=== PATIENT | male | born 1940 | race Caucasian/White ===

== ENCOUNTER → 2017-10-07 11:07 | Outpatient (CLI) | payer MEDICARE, BC, SELFPAY | PROVIDERS: Family Provider Family Medicine; PCP Family Medicine; Visit Provider Urology | DX: C61 Malignant neoplasm of prostate (principal) | CPT/HCPCS: 36415; 84153 ==

== ENCOUNTER → 2018-03-26 11:16 | Outpatient (CLI) | payer MEDICARE, BC, SELFPAY | PROVIDERS: Family Provider Family Medicine; PCP Family Medicine; Visit Provider Family Medicine | DX: R97.20 Elevated prostate specific antigen [PSA] (principal) | CPT/HCPCS: 36415; 84153 ==

== ENCOUNTER → 2019-06-08 16:33 | Outpatient (CLI) | payer MEDICARE, BC, SELFPAY ==
[2019-06-08 17:59] LABS: Absolute Lymphocyte Count 0.92 X10^3/uL (0.83-4.51); Absolute Neutrophil Count 5.1 X10^3/uL (2.0-7.7); Basophil# 0.02 X10^3/uL; Basophil% 0.3 % (0-1); Eosinophil# 0.23 X10^3/uL; Eosinophils% 3.4 % (0-5); Hematocrit 43.6 % (40-54); Hemoglobin 13.4 g/dL (13.0-16.5); Lymphocyte # 0.92 X10^3/ul (4.0); Lymphocyte % 13.4 % (19-41); Mean Corp Hgb Conc 30.7 g/dL (32-36); Monocyte# 0.54 X10^3/uL; Monocyte% 7.9 % (0-10); NRBC Flagged by Analyzer 0 % (0-5); Neutrophil # 5.14 X10^3/uL (2.7-7.7); Neutrophil % 74.9 % (47-70); Platelet Count 251 K/mm3 (150-450); RBC Distribution Width CV 12.7 % (11.6-14.6); RBC Distribution Width SD 42.4 fl (35.1-43.9); Red Blood Count 4.79 M/mm3 (4.6-6.2); White Blood Count 6.9 K/mm3 (4.4-11.0)
[2019-06-08 18:31] LABS: AST(SGOT) 19 U/L (15-37); Alanine Aminotransfer ALT/SGPT 19 U/L (16-61); Albumin, Serum 3.7 g/dL (3.2-5.0); Alkaline Phosphatase 66 U/L (45-117); Anion Gap 6 (5-15); BUN 23 mg/dL (7-18); BUN/Creat Ratio 18.5 RATIO (10-20); Calcium,Total 8.7 mg/dL (8.5-10.1); Chloride 107 mmol/L (98-107); Creatinine, Serum 1.24 mg/dL (0.70-1.30); EST Glomerular Filtration Rate 60 mL/min (>60); Est Glom Filt Rate - Afr Amer 73 mL/min (>60); Globulin 3.7 g/dL (2.2-4.2); Glucose 86 mg/dL (74-106); Potassium 4.3 mmol/L (3.5-5.1); Protein, Total 7.4 g/dL (6.4-8.2); Sodium Level 140 mmol/L (136-145); Thyroid Stim Hormone (TSH) 1.94 uIU/mL (0.358-3.74)
[2019-06-09 14:45] LABS: Vitamin B12 360 pg/mL (211-911)
== END ==
PROVIDERS: Family Provider Family Medicine; PCP Family Medicine; Referring Provider Family Medicine; Visit Provider Family Medicine
DX: G31.84 Mild cognitive impairment of uncertain or unknown etiology (principal)
CPT/HCPCS: 36415; 80053; 82607; 82746; 84443; 85025

== ENCOUNTER 2019-07-14 21:05 | Inpatient (IN) | payer MEDICARE, BC, SELFPAY ==
[2019-07-14] VITALS (10 sets, daily range): BP systolic 136–148; BP diastolic 86–93; PULSE 90–105; RESP 15–26; TEMP 36.7–36.9; O2SAT 97–99; BMI 22.0; BMI 24.0; BMI 20.7; BMI 20.8
--- NOTE | 2019-07-14 21:06 | EKG12_ITS ---
Test Reason : NEURO Blood Pressure : / mmHG Vent. Rate : 097 BPM Atrial Rate : 097 BPM P-R Int : 176 ms QRS Dur : 104 ms QT Int : 348 ms P-R-T Axes : 055 -31 040 degrees QTc Int : 441 ms Normal sinus rhythm Left axis deviation Incomplete right bundle branch block Abnormal ECG Confirmed by LEVI PRATER ([id number]), video tape editor MARIE BILLINGSLEY ([id number]) on 07/16/2019 10:48:09 AM Referred By: ARTURO Confirmed By:LEVI PRATER
--- NOTE | 2019-07-14 21:06 | CT_ITS ---
STUDY: CT BRAIN WITHOUT CONTRAST REASON FOR EXAM: Male, 79 years old. Vision loss. Stroke alert. RADIATION DOSAGE (If Supplied By Facility): CTDIvol = ( 44.99 ) mGy, DLP = ( 829.85 ) mGycm TECHNIQUE: Transaxial CT imaging of the brain was performed without administration of intravenous contrast material. Individualized dose optimization techniques were used for this CT. COMPARISON: None. FINDINGS: There is no acute bleed or infarct. There are chronic ischemic and atrophic changes. The ventricles are normal in configuration. There is no hydrocephalus. There is mild mucosal hypertrophy in the maxillary and ethmoid sinuses. The visualized paranasal sinuses are otherwise clear. The mastoid air cells are well aerated. There is no skull fracture. CT/Brain/Head without Contrast IMPRESSION: No acute intracranial abnormality. Chronic ischemic and atrophic changes. Mild sinusitis. N.B. : The above information has been verbally conveyed by Robert Marino to MD Anthony, on 07/14/2019 21:28:19 (ET). Electronically Signed: Robert Marino, at 21:21 EST Tel , Service support ,
--- NOTE | 2019-07-14 21:07 | CT_ITS ---
STUDY: CTA HEAD AND NECK WITH CONTRAST REASON FOR EXAM: Male, 79 years old. RT SIDED DEFICITS,VISION LOSS -- HX:HTN RADIATION DOSAGE (If Supplied By Facility): CTDIvol = ( 21.92 ) mGy, DLP = ( 731.40 ) mGycm TECHNIQUE: CT angiography was performed with a multi-detector CT scanner. Data acquisition was obtained from the skull base through the vertex following intravenous administration of IV 100mL [id number]-370. MIP images were reconstructed from the axial data set. Post-processing of the angiographic images was performed, with multiplanar reformation and 3D reconstruction. Individualized dose optimization techniques were used for this CT. COMPARISON: No relevant priors. FINDINGS: Normal bilateral petrous carotid arteries. Normal right cavernous carotid artery with a normal supraclinoid bifurcation. Normal left cavernous carotid artery with a normal supraclinoid bifurcation. Normal right A1 segments of the anterior cerebral artery. Normal left A1 segments of the anterior cerebral artery. Normal intact anterior communicating artery (ACOM). Normal bilateral A2 segments of the anterior cerebral arteries. Normal right M1 and M2 segments of the middle cerebral arteries, with a normal M1 bifurcation. Normal left M1 and M2 segments of the middle cerebral arteries, with a normal M1 bifurcation. Normal right posterior communicating artery (PCOM). Normal left posterior communicating artery (PCOM). Normal bilateral vertebral arteries. Normal basilar artery with a normal basilar bifurcation. The visualized bilateral superior cerebellar (SCA) arteries are normal. Normal bilateral P1, P2 and visualized P3 segments of the posterior cerebral arteries. There is no demonstrated aneurysm of the [place]. There is no demonstrated abnormality of the visualized brain. AORTIC ARCH: Normal visualized aortic arch. Normal origins of the brachiocephalic, left common carotid, and left subclavian arteries. RIGHT CAROTID ARTERIES: Normal right common carotid artery (CCA). There is mild atherosclerotic plaque formation with minimal narrowing of the right carotid bulb. Normal origin of the right internal carotid (ICA) artery without a hemodynamically significant stenosis. Normal visualized cervical portion of the right internal carotid artery. Normal origin of the right external carotid artery (ECA). LEFT CAROTID ARTERIES: Normal left common carotid artery (CCA). There is mild atherosclerotic plaque formation with minimal narrowing of the left carotid bulb. Normal origin of the left internal carotid (ICA) artery without a hemodynamically significant stenosis. Normal visualized cervical portion of the left internal carotid artery. Normal origin of the left external carotid artery (ECA). VERTEBRAL ARTERIES: Normal bilateral vertebral arteries. CT/CTA Head AND Neck W/ Contrast IMPRESSION: Normal CTA Head and neck with contrast. Electronically Signed: Robert Marino, at 21:50 EST Tel , Service support ,
--- NOTE | 2019-07-14 21:13 | ED.RN ---
FACE SHEET FAXED TO [facility]
--- NOTE | 2019-07-14 21:16 | ED.RN ---
NO OLD EKGS IN MUSE
[2019-07-14 21:34] LABS: Absolute Lymphocyte Count 0.91 X10^3/uL (0.83-4.51); Absolute Neutrophil Count 5.5 X10^3/uL (2.0-7.7); Basophil# 0.03 X10^3/uL; Basophil% 0.4 % (0-1); Eosinophil# 0.27 X10^3/uL; Eosinophils% 3.7 % (0-5); Hematocrit 37.8 % (40-54); Lymphocyte # 0.91 X10^3/ul (4.0); Lymphocyte % 12.4 % (19-41); Mean Corp Hgb Conc 31.7 g/dL (32-36); Mean Corpuscular Hgb 27.8 pg (27.0-32.0); Mean Corpuscular Volume 87.5 fL (80-94); Mean Platelet Vol. 10.7 fl (6.2-12.0); Monocyte# 0.61 X10^3/uL; Monocyte% 8.3 % (0-10); NRBC Flagged by Analyzer 0 % (0-5); Neutrophil % 75.1 % (47-70); Platelet Count 212 K/mm3 (150-450); RBC Distribution Width CV 13.1 % (11.6-14.6); RBC Distribution Width SD 42.1 fl (35.1-43.9); Red Blood Count 4.32 M/mm3 (4.6-6.2); White Blood Count 7.3 K/mm3 (4.4-11.0)
[2019-07-14 21:56] LABS: Anion Gap 1 (5-15); BUN 19 mg/dL (7-18); Calcium,Total 8.3 mg/dL (8.5-10.1); Chloride 106 mmol/L (98-107); Creatinine, Serum 1.27 mg/dL (0.70-1.30); EST Glomerular Filtration Rate 58 mL/min (>60); Est Glom Filt Rate - Afr Amer 71 mL/min (>60); Estimated Creatinine Clearance 50.78 ml/min; Glucose 102 mg/dL (74-106); Potassium 4.9 mmol/L (3.5-5.1); Sodium Level 135 mmol/L (136-145)
--- NOTE | 2019-07-14 22:01 | ED.DCSUM_ITS ---
History of Present Illness Chief Complaint: Neuro S/Sx Informant: Patient, Family, Operations And Maintenance Technician Onset: Today - Onset 2039 Context: Sudden Onset Timing: Continuous Quality and Location: Right Arm Parasthesia, Right Leg Parasthesia, Right Arm Weakness, Right Leg Weakness Onset: 2039 Current Severity: Moderate Maximum Severity: Moderate Worsened by: Nothing Relieved by: Nothing Associated Symptoms: Negative for: Headache, Nausea, Vomiting Narrative: Is an elderly male who was bowpablo. Son received a call from elsa ruiz that his father was not acting appropriately not able to use his right side. There is no prior history of stroke. He denies headache. Denies visual disturbance. Prior similar symptoms: No Recent Illness/Hospitalization: No - Past Medical History (1) History of BPH Status: Acute (2) History of hypertension Status: Acute Past Medical History - Allergies and Home Meds Allergies/Adverse Reactions: Allergies No Known Allergies Allergy (Verified 12/19/13 16:39) Primary Care Physician: Memo Richards MD [Primary Care Provider] - Prior records reviewed: Yes Surgical History: noncontributory Lives: - - Unknown Smoking Status: Former smoker Alcohol: None Drugs: None Review of Systems ROS: Unable to Obtain - Initial history is limited since patient examined in the hallway. He had difficulty finding words. He also had significant weakness on the right side. General: Denies: Fever, Malaise Eyes: Denies: Visual changes - bilaterally, Blurred Vision - bilaterally, Diplopia ENT: Reports: - - He denies ringing in his ears or decreased hearing. Denies: Rhinorrhea, Sore throat Cardiovascular: Denies: Chest pain, Palpitations Respiratory: Denies: Dyspnea, Cough, Dyspnea on exertion Gastrointestinal: Denies: Abdominal pain, Nausea, Vomiting Musculoskeletal: Denies: Myalgias, Arthralgias, Neck pain, Back pain, Swelling, Extremity Pain Skin: Denies: Rash, Wounds Neurological: Reports: Weakness, Parasthesia, Numbness. Denies: Headache Endocrine: Denies: Polyuria, Polydipsia Hematologic: Denies: Easy bruising, Easy bleeding STROKE Vital Signs/Narrative: Vital Signs Temp Pulse Resp BP Pulse Ox 07/14/19 21:54 102 H 23 H 144/93 H 98 07/14/19 21:50 98.4 F 100 16 144/93 H 98 07/14/19 21:38 100 15 145/93 H 99 07/14/19 21:29 101 H 17 145/93 H 98 07/14/19 21:27 99 Inital Vital Signs reviewed: Yes - NIHSS Initial 1a Level of Consciousness: 1 1b LOC Questions (Score 2 if aphasic/stupor): 1 1c LOC Commands (Only score 1st attempt): 0 2 Best Gaze (If aphasic, use reflexive mvmts.): 0 3 Visual: 0 4 Facial Palsy: 0 5 Motor Arm Right (UN = amputation/fusion): 2 5 Motor Arm Left: 0 6 Motor Leg Right: 2 7 Limb ataxia (Only + if out of proportion): 0 8 Sensory (Aphasia/stupor=0 or 1, coma=2): 1 9 Best Language: 1 10 Dysarthria (mute, coma=2, intubated=UN): 1 11 Extinction and Inattention (only scored if +): 1 Total Score: 10 2nd Follow up 1a Level of Consciousness: 0 1b LOC Questions (Score 2 if aphasic/stupor): 0 1c LOC Commands (Only score 1st attempt): 0 2 Best Gaze (If aphasic, use reflexive mvmts.): 0 3 Visual: 0 4 Facial Palsy: 0 5 Motor Arm Right (UN = amputation/fusion): 0 5 Motor Arm Left: 0 6 Motor Leg Right: 0 6 Motor Leg Left: 0 7 Limb ataxia (Only + if out of proportion): 0 8 Sensory (Aphasia/stupor=0 or 1, coma=2): 1 9 Best Language: 1 10 Dysarthria (mute, coma=2, intubated=UN): 1 11 Extinction and Inattention (only scored if +): 0 Total Score: 3 Diagnostic/Tx/Re-eval Impressions Head/Neck CTA 07/14/19 21:07 IMPRESSION: Normal CTA Head and neck with contrast. Electronically Signed: Robert Marino, at 21:50 EST Tel , Service support , 07/14/19 21:06 Brain/Head without Contrast [CT] Stat 07/14/19 21:07 CTA Head AND Neck W/ Contrast [CT] Stat Laboratory Results 07/14/19 07/14/19 07/14/19 21:25 21:25 21:25 WBC 7.3 RBC 4.32 L Hgb 12.0 L Hct 37.8 L MCV 87.5 MCH 27.8 MCHC 31.7 L RDW Std Deviation 42.1 RDW Coeff of Kirsten 13.1 Plt Count 212 MPV 10.7 Immature Gran % (Auto) 0.100 Neut % (Auto) 75.1 H Lymph % (Auto) 12.4 L [place] % (Auto) 8.3 Eos % (Auto) 3.7 Baso % (Auto) 0.4 Absolute Neuts (auto) 5.5 Absolute Lymphs (auto) 0.91 Nucleated RBC % 0 PT Cancelled INR Cancelled APTT Cancelled Sodium 135 L Potassium 4.9 Chloride 106 Carbon Dioxide 28.0 Anion Gap 1 L BUN 19 H Creatinine 1.27 Estim Creat Clear Calc 50.78 Est GFR (MDRD) Af Amer 71 Est GFR (MDRD) Non-Af 58 L BUN/Creatinine Ratio 15.0 Glucose 102 Calcium 8.3 L Troponin I < 0.015 Laboratory results are unremarkable. - EKG Initial EKG Interpretation: Sinus Rhythm - Sinus rhythm with a ventricular rate of 97. PA interval is 176 ms. QRS duration 104 ms. QT duration 348 ms. [place] to the left. There is an RR prime noted in V1 and suggestive of an incomplete right bundle branch block. - Medical Decision Making Stroke Team Activated: Yes Reviewed Inclusion/Exclusion criteria: Yes Was Patient considered for Endovascular Intervention?: No IV Alteplase (t-PA) Administered: No No contraindications for IV Alteplase (t-PA) administration.: No - No contraindication other than rapid improvement in low score Alteplase (t-PA) risks, benefits, alternative discussed: No Based on initial examination concern patient had acute stroke. He was taken immediately to the radiology suite for CT of the head without contrast and CTA of the head and neck. I was informed there is chronic changes with no evidence of acute stroke or thrombus/embolus. The stroke neurologist was spoken to briefly because of other high acuity patients. She had a NIH of 0. When I repeated my NAH at 2205 he is score is not 0. Nurse was instructed to continue performing NIH per protocol. Will discuss case with hospitalist. Recommendation by stroke neurologist from [facility] was MRI and states he is a TIA. Since patient has symptoms are still present he will be admitted as a stroke. ED Disposition - Plan for ED Patient: Disposition: Acute Care [facility] Diagnosis: Acute CVA (cerebrovascular accident), History of hypertension Referrals: Memo Richards MD [Primary Care Provider] -
[2019-07-14 22:37] LABS: International Normalized Ratio 1.1; Prothrombin Time (Protime)PT. 13.9 SECONDS (11.7-14.9)
[2019-07-14 22:38] LABS: Partial Thromboplast Time 29.2 Seconds (24.1-36.2)
[2019-07-15] VITALS (9 sets, daily range): BP systolic 129–159; BP diastolic 77–98; PULSE 76–94; RESP 16; TEMP 36.7–37; O2SAT 95–98; BMI 20.7
[2019-07-15] MEDS: 0.9% Normal Saline 1,000 ML 100 ML IV (00:17)
--- NOTE | 2019-07-15 03:57 | ECHOD_ITS ---
Reason For Study: NEAR SYNCOPE Procedure This was a 2D Doppler, Color Flow transthoracic echocardiogram. Exam performed in department. Left Ventricle Normal size and thickness. The estimated ejection fraction is 65 %. Stage 1 diastolic dysfunction. Right Ventricle Normal size and thickness. Normal systolic function. Atria Normal left atrium. Normal right atrium. Normal atrial septum. Mitral Valve The mitral valve is structurally normal. No prolapse or stenosis seen. Tricuspid Valve Normal tricuspid valve. Mild (1+) tricuspid valve insufficiency. Right ventricular systolic pressure estimated to be 24 mmHg. Aortic Valve Trisinus/trileaflet aortic valve. Severe diffuse aortic valve thickening. Moderate focal aortic valve thickening. Severe restriction of the aortic valve. Severe aortic stenosis. Peak aortic valve gradient 61 mmHg. Mean aortic valve gradient 39 mmHg. Calculated aortic valve area (continuity equation) is 0.78 cm2. Trivial aortic valve insufficiency. Pulmonic Valve Normal pulmonic valve. Great Vessels Normal aortic root. Normal arch. Normal inferior vena cava. Inferior vena cava collapse with sniff. Pericardium/Pleural No pericardial effusion. MMode/2D Measurements & Calculations LVIDd: 4.7 cm IVSd: 1.1 cm LVOT diam: 2.0 cm LVIDs: 3.1 cm LVPWd: 1.1 cm LVOT area: 3.1 cm2 RVDd: 3.1 cm FS: 35.5 % Ao root diam: 3.6 cm LAV(MOD-bp): 42.4 ml LA A4 area: 15.5 cm2 LAV(MOD-bp) Indexed: 22.3 ml/m2 LAV(MOD-sp2): 43.6 ml LAV(MOD-sp4): 40.9 ml LA dimension(2D): 3.3 cm RA A4 area: 11.0 cm2 Doppler Measurements & Calculations MV E max nilo: 53.2 cm/sec Lat Peak E' Nilo: 8.8 cm/sec Med Peak E' Nilo: 5.9 cm/sec MV A max nilo: 80.2 cm/sec E/E' lat: 6.1 E/E' med: 9.0 MV E/A: 0.66 Ao V2 max: 389.4 cm/sec AI max nilo: 413.9 cm/sec LV V1 max: 92.6 cm/sec Ao max P.0 mmHg AI max P.6 mmHg LV V1 max P.4 mmHg Ao V2 mean: 292.4 cm/sec AI dec slope: 196.4 cm/sec2 LV V1 mean P.0 mmHg Ao mean P.8 mmHg AI P1/2t: 617.3 msec LV V1 mean: 68.5 cm/sec Ao V2 VTI: 83.5 cm LV V1 VTI: 20.9 cm WILLIAM(I,D): 0.78 cm2 WILLIAM(V,D): 0.74 cm2 SV(LVOT): 65.1 ml Interpretation Summary The estimated ejection fraction is 65 %. Stage 1 diastolic dysfunction. Mild (1+) tricuspid valve insufficiency. Right ventricular systolic pressure estimated to be 24 mmHg. Severe restriction of the aortic valve. Probable fixed and mobile right coronary cusp. Severe to critical aortic stenosis. Peak aortic valve gradient 61 mmHg. Mean aortic valve gradient 39 mmHg. Calculated aortic valve area (continuity equation) is 0.78 cm2. Trivial aortic valve insufficiency. There is no comparison study available. Ordering Physician: Corrie Banerjee Referring Physician: Memo Richards Performed By: Joellen Mcelroy RDCS, RVT
--- NOTE | 2019-07-15 03:57 | MRI_ITS ---
STUDY: MRI BRAIN WITHOUT CONTRAST REASON FOR EXAM: Male, 79 years old. tia/cva, rt sided weakness, word difficulty TECHNIQUE: Standardized multiplanar fat and water weighted pulse sequences were obtained. COMPARISON: None. FINDINGS: There is moderate cerebral atrophy with widening of the extra-axial spaces and ventricular dilatation. There are a limited number of small white matter hyperintensities, distributed throughout the deep white matter tracts of the cerebral hemispheres, consistent with mild chronic white matter ischemic changes. There is no evidence for recent intracranial ischemia or other cause of cytotoxic edema on diffusion weighted imaging (DWI). Normal T2* images of the brain without demonstrated susceptibility artifact. There is no demonstrated hemosiderin stain. Normal bilateral basal ganglia. Normal thalami. There is no extra-axial fluid accumulation. Normal flow voids within the major intracranial circulation suggesting patency by spin echo criteria. Normal sella turcica, pituitary gland, infundibular stalk, optic chiasm and hypothalamus. Normal tectal plate and pineal gland. Normal midbrain, johan and medulla. Normal cerebellum. Normal basal cisterns. Normal bilateral temporal bones. Normal bilateral internal auditory canals. No demonstrated orbital abnormality, within the constraints of a routine brain study. Mild bilateral chronic maxillary sinus mucosal thickening. There is moderate bilateral ethmoid air cells opacification. Normal calvarium and skull base. Normal visualized soft tissue structures. Normal visualized upper cervical spine. MRI/Brain without Contrast IMPRESSION: Involutional changes of the brain, as described above. Mild bilateral chronic maxillary sinus mucosal thickening. There is moderate bilateral ethmoid air cells opacification. Electronically Signed: Edithchristy Ortiz, at 14:39 EST Tel , Service support ,
--- NOTE | 2019-07-15 03:57 | PCM.HP.STD ---
Problem List (1) History of BPH Status: Chronic (2) History of hypertension Status: Chronic History of Present Illness Date of Admission: 07/14/19 Chief Complaint: Right sided weakness The patient is a 79 year old M with past medical history of hypertension, BPH who comes in with right-sided weakness. Patient had gone bowling and reportedly felt very weak, looks like he was going to fall on his right side. He admits to feeling very dizzy feeling like he was going to pass out but he did not pass out. Denied diarrhea or chest pain or palpitations prior to this. The EMS was called and per report, patient could not speak, was agitated, looked confused, was very unstable on his feet, and had right-sided weakness. Blood glucose was 98. His vitals in the ED showed temperature of 98.4F, heart rate 100, blood pressure 144/93, respiratory rate was 16, SPO2 was 98% on room air. Written blood work showed a BC count 7.3, hemoglobin 12.2, platelet count of 212, INR 1.1, sodium 135, potassium 4.9, chloride 106, bicarbonate 28, BUN 19, creatinine 1.27, troponins was 0.015. Tele-stroke was consulted from the ED. Impressions was TIA Past Medical History Past Medical History (Chronic Problems): Chronic Problems History of BPH (Chronic) History of hypertension (Chronic) Allergies No Known Allergies Allergy (Verified 12/19/13 16:39) Home Medications: Ambulatory Orders Medication Instructions Recorded Ramipril [Altace] 10 mg PO DAILY 12/19/13 Tamsulosin HCl [Flomax] 0.4 mg PO DAILY 12/19/13 Surgical History: noncontributory Psychiatric History: No pertinent psych hx Lives: With Family, - - Unknown Smoking Status: Former smoker Tobacco Use: Cigarettes Alcohol: None Drugs: None Review of Systems Constitutional: Reports: Weakness. Denies: Anorexia, Chills, Fever, Malaise, Weight Change, Fatigue Eyes: Denies: Blurred vision, Cataracts, Conjunctivae Inflammation, Pain, Redness, Vision Change HEENT: Denies: Difficulty Hearing, Difficulty Swallowing, Head Aches, Hearing Changes, Nasal bleeding, Sinus Congestion, Sinus Drainage Cardiovascular: Denies: Chest Pain, Claudication, Orthopnea, Palpitations, Paroxysmal Noc. Dyspnea Respiratory: Denies: Cough, Hemoptysis, Shortness of breath at rest, Shortness of breath upon exertion, Sputum production Gastrointestinal: Denies: Abdominal Pain, Constipation, Hematemesis, Nausea, Vomiting Genitourinary: Denies: Dysuria Musculoskeletal: Denies: Joint Pain, Joint stiffness, Joint swelling, Joint Tenderness Skin: Denies: Rash, Wounds Neurological: Reports: Balance problems, Focal weakness, Incoordination. Denies: Numbness, Tingling Psychiatric: Denies: Anxiety, Depression, Homicidal Ideations, Suicidal Ideations Hematologic/ Lymphatic: Denies: Easy Bruising, Easy Bleeding VTE Information - Inpt Only VTE Present on Admission: No VTE Pharm Prophylaxis ordered?: Yes Patient Problems: Active and Suspected Problems Acute CVA (cerebrovascular accident) (Acute) - Physical Exam Vitals/I&O's: Vital Signs Temp Pulse Resp BP Pulse Ox 98.1 F 90 18 143/86 H 98 07/14/19 23:45 07/14/19 23:55 07/14/19 23:45 07/14/19 23:45 07/14/19 23:45 Oxygen Flow Rate (L/min) 2 Oxygen Delivery Method Room Air Weight: 69.5 kg Body Mass Index (BMI) 20.7 Finger Stick Blood Glucose 98 Intake and Output for Last 24 Hours 07/13/19 07/14/19 07/15/19 23:59 23:59 23:59 Intake Total 0 / 0 Output Total 0 / 0 Balance 0 / 0 General: Alert, Oriented x3, Cooperative, No apparent distress HEENT: Atraumatic, PERRLA, EOMI, Normocephalic Oral: Moist Mucosa Neck: Supple, No JVD, Negative Carotid Bruits Lungs: Clear to auscultation, Normal air movement Cardiovascular: Regular rate, Regular Rhythm, Normal S1, Normal S2, No murmurs Abdomen: Bowel Sounds Present, Soft, Non Tender, Non-Distended, No Hepato-splenomegaly Extremities: No edema Skin: No rashes, No breakdown Musculoskeletal: No Tenderness to Palpation of Joints or Extremities Lymphatic: No Cervical, Supraclavicular, or Inguinal Adenopathy Neurological: Cranial nerves II-XII grossly intact, Neuro grossly intact Psych/Mental Status: Normal Affect, Appropriate Laboratory Results 07/14/19 21:25: WBC 7.3, RBC 4.32 L, Hgb 12.0 L, Hct 37.8 L, MCV 87.5, MCH 27.8, MCHC 31.7 L, RDW Std Deviation 42.1, RDW Coeff of Kirsten 13.1, Plt Count 212, MPV 10.7, Immature Gran % (Auto) 0.100, Neut % (Auto) 75.1 H, Lymph % (Auto) 12.4 L, [place] % (Auto) 8.3, Eos % (Auto) 3.7, Baso % (Auto) 0.4, Absolute Neuts (auto) 5.5, Absolute Lymphs (auto) 0.91, Nucleated RBC % 0 07/14/19 21:25: PT Cancelled, INR Cancelled, APTT Cancelled 07/14/19 21:25: Sodium 135 L, Potassium 4.9, Chloride 106, Carbon Dioxide 28.0, Anion Gap 1 L, BUN 19 H, Creatinine 1.27, Estim Creat Clear Calc 50.78, Est GFR (MDRD) Af Amer 71, Est GFR (MDRD) Non-Af 58 L, BUN/Creatinine Ratio 15.0, Glucose 102, Calcium 8.3 L, Troponin I < 0.015 07/14/19 22:24: PT 13.9, INR 1.1, APTT 29.2 Current Medications Acetaminophen (Tylenol) 650 mg PO Q6H PRN PRN PRN Reason: Pain Score 1-10/Temp > 100.7 F Heparin Sodium (Porcine) (Heparin Na) 5,000 unit SC Q8 [facility] Sodium Chloride () 1,000 mls @ 100 mls/hr IV .Q10H NILA Stop: 07/15/19 09:40 Last Admin: 07/15/19 00:17 Dose: 100 mls/hr Documented by: Nitroglycerin (Nitrostat) 0.4 mg SUBLINGUAL Q5M PRN PRN Reason: CARDIAC/CHEST PAIN Sodium Chloride () 10 - 40 ml IV UD PRN PRN Reason: SALINE FLUSH Assessment/Plan All Active Problems Acute CVA (cerebrovascular accident) (Acute) 79 year old M with past medical history of hypertension, BPH who comes in with right-sided weakness. 1. Acute TIA, patient presented with right-sided weakness which appeared to have resolved Tele-stroke consulted from ED Continue on aspirin, stroke work-up with MRI of the brain, MRA of the head and neck, 2D echo, HbA1c, lipid profile Atorvastatin 40 mg p.o. daily 2. Hypertension, controlled, would hold home ramipril to allow for permissive hypertension 3. BPH on Flomax 4. DVT PPx- Heparin SC Code Visit Inpatient E&M: 54107 Subs Hosp L2
[2019-07-15] MEDS: Heparin Injection (Vial) 5,000 UNIT/ML VIAL 5000 UNIT SC (05:14)
[2019-07-15] MEDS: Aspirin 81 MG TAB.CHEW PO ×2 (05:14→08:07)
[2019-07-15 06:05] LABS: Absolute Lymphocyte Count 0.69 X10^3/uL (0.83-4.51); Absolute Neutrophil Count 6.1 X10^3/uL (2.0-7.7); Basophil# 0.04 X10^3/uL; Basophil% 0.5 % (0-1); Eosinophil# 0.23 X10^3/uL; Hematocrit 39.1 % (40-54); Hemoglobin 12.1 g/dL (13.0-16.5); Lymphocyte # 0.69 X10^3/ul (4.0); Lymphocyte % 9.1 % (19-41); Mean Corp Hgb Conc 30.9 g/dL (32-36); Mean Corpuscular Hgb 27.1 pg (27.0-32.0); Mean Corpuscular Volume 87.5 fL (80-94); Mean Platelet Vol. 10.8 fl (6.2-12.0); Monocyte# 0.57 X10^3/uL; Monocyte% 7.5 % (0-10); NRBC Flagged by Analyzer 0 % (0-5); Neutrophil # 6.06 X10^3/uL (2.7-7.7); Neutrophil % 79.6 % (47-70); Platelet Count 217 K/mm3 (150-450); RBC Distribution Width SD 41.6 fl (35.1-43.9); Red Blood Count 4.47 M/mm3 (4.6-6.2); White Blood Count 7.6 K/mm3 (4.4-11.0)
[2019-07-15 06:28] LABS: AST(SGOT) 16 U/L (15-37); Alanine Aminotransfer ALT/SGPT 18 U/L (16-61); Albumin, Serum 3.2 g/dL (3.2-5.0); Alkaline Phosphatase 62 U/L (45-117); Anion Gap 3 (5-15); BUN 18 mg/dL (7-18); BUN/Creat Ratio 15.8 RATIO (10-20); Calcium,Total 8.6 mg/dL (8.5-10.1); Chloride 109 mmol/L (98-107); Cholesterol 195 mg/dL (200); Creatinine, Serum 1.14 mg/dL (0.70-1.30); EST Glomerular Filtration Rate 66 mL/min (>60); Est Glom Filt Rate - Afr Amer 80 mL/min (>60); Estimated Creatinine Clearance 53.34 ml/min; Globulin 3.3 g/dL (2.2-4.2); Glucose 102 mg/dL (74-106); High Density Lipoprotein 40 mg/dL; Potassium 4.4 mmol/L (3.5-5.1); Protein, Total 6.5 g/dL (6.4-8.2); Sodium Level 138 mmol/L (136-145); Triglycerides 99 mg/dL; Very Low Density Lipoprotein 20 mg/dL (5-40)
[2019-07-15] MEDS: 0.9% Saline Lock 10 ML Syringe IV (08:07)
--- NOTE | 2019-07-15 09:03 | PCA ---
pt off floor
--- NOTE | 2019-07-15 13:02 | CPS ---
patient refused incentive
--- NOTE | 2019-07-15 13:32 | CASEMGMT ---
JASE DENT assessment: Face to Face with patient for initial transition planning/care coordination assessment. JASE DENT introduced self and role at [facility], pt voices understanding and consents to assessment at this time. Pt is sitting up in bed in no distress at this time. Pt is A/Ox4 at this time and answers all questions appropriately at this time. Care providers, pharmacy, and demographics verified at this time. Presentation: Stroke-like sx's Admitting dx: Acute CVA PCP: Memo Richards Specialists: lisette Montiel Preferred Pharmacy: [facility] Insurance: [email or web address] A/B, [employer] Prescription Benefit: Yes Living Will/HPOA: Pt states has LW/HPOA and is aware that they are not on file at [facility] at this time. Pt states his daughter, Lauren Perry, is HPOA. Pt encouraged to bring in, when able, voices understanding. LNOK: Lauren Perry, daughter; Meir Howe, son Living Arrangements: Pt states lives alone in 2 story home and states no concerns at home at this time. Pt states is independent with ADL's. Transportation: Pt states drives self and states no transportation concerns at this time. DME/HHC: Pt states no current DME or need for any at this time. Pt states no hx of HHC or SNF in the past. Pt states no concerns with going home at time of discharge. 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 Pt states does not smoke or drink ETOH. Pt states no further concerns/needs at this time. CM to follow for any further discharge planning/needs. Advised pt to ask for CM if any further questions/concerns/needs arise, voices understanding. Pt Goal: Home Plan: Home [place] JASE DENT
--- NOTE | 2019-07-15 13:58 | CASEMGMT ---
SW did not complete a PHQ 9 with patient. Hospitalist and [facility] do not feel patient had a TIA or Stroke. They felt it was more vertigo vs dehydration. Ofelia [employer]
--- NOTE | 2019-07-15 14:49 | DCINST_ITS ---
- Discharge Diagnoses Current Active Problems: Current Active and Chronic Problems 1. TIA 2. Hypertension 3. BPH You will use the following diet at home:: Cardiac Discharge Activity: Return to Normal Activity Call your doctor if you observe: Shortness of breath, Dizziness, Fainting spells, Chest pain Allergies/Adverse Reactions: Allergies No Known Allergies Allergy (Verified 12/19/13 16:39) Medications to take at Discharge Ramipril [Altace] 10 mg PO DAILY 12/19/13 Tamsulosin HCl [Flomax] 0.4 mg PO DAILY 12/19/13 Aspirin [Aspirin, Baby] 81 mg PO DAILY@0800 #30 tab.chew 07/15/19 Atorvastatin Calcium [Lipitor] 40 mg PO QHS #30 tab 07/15/19 The following prescriptions were given: Aspirin [Aspirin, Baby] 81 mg PO DAILY@0800 #30 tab.chew Transmission Status: Pending to [facility] Atorvastatin Calcium [Lipitor] 40 mg PO QHS #30 tab Transmission Status: Pending to [facility] Primary Care Physician: Memo Richards MD [Primary Care Provider] - Please follow up with your Primary Care Physician in: 1 Week Test Results: Test results from this visit will be discussed in further detail at your follow- up appointment, if applicable. Please Follow Up With: Filippo Ayon MD When: 1-2 Weeks, may see [employer] Proposed Discharge Date: 07/15/19
--- NOTE | 2019-07-15 15:05 | PCM.DC.SUM ---
<Chantal Clayton - Last Filed: 07/15/19 15:12> Discharge Date and Diagnosis Date of Admission: 07/14/19 Date of Discharge: 07/15/19 - Primary Discharge Diagnosis Active and Suspected Problems 1. TIA 2. Hypertension 3. BPH - Secondary Discharge Diagnosis Chronic Problems History of BPH (Chronic) History of hypertension (Chronic) Hospital Course and Treatment Imaging Results: Diagnostic Data Brain CT 07/14/19 21:06 IMPRESSION: No acute intracranial abnormality. Chronic ischemic and atrophic changes. Mild sinusitis. N.B. : The above information has been verbally conveyed by Robert Marino to MD Anthony, on 07/14/2019 21:28:19 (ET). Electronically Signed: Robert Marino, at 21:21 EST Tel , Service support , ADDENDUM: 07/15/19 0944 IMPRESSION: No acute intracranial abnormality. Chronic ischemic and atrophic changes. Mild sinusitis. N.B. : The above information has been verbally conveyed by Robert Marino to MD Anthony, on 07/14/2019 21:28:19 (ET). Electronically Signed: Robert Marino, at 21:21 EST Tel , Service support , Head/Neck CTA 07/14/19 21:07 IMPRESSION: Normal CTA Head and neck with contrast. Electronically Signed: Robert Marino, at 21:50 EST Tel , Service support , Brain MRI 07/15/19 03:57 IMPRESSION: Involutional changes of the brain, as described above. Mild bilateral chronic maxillary sinus mucosal thickening. There is moderate bilateral ethmoid air cells opacification. Electronically Signed: Korina Ortiz, at 14:39 EST Tel , Service support , Teleneurology Operations: None Procedures: 2-D Echocardiogram Summary of Care Provided: The patient is a 79 year old M admitted 07/14/2019 due to right-sided weakness. 1. TIA- teleneuro consulted from ER with diagnosis of TIA. MRI of brain shows no acute process. Head and neck CTA unremarkable. Echocardiogram pending and will be reviewed prior to discharge. Continue aspirin, statin. Follow-up with neurology in 1 to 2 weeks. Follow-up with primary care provider in 1 week. 2. Hypertension-stable, continue ramipril regimen. 3. BPH-continue Flomax regimen. General: Alert, Oriented x3, Cooperative HEENT: Atraumatic, PERRLA, EOMI, Normocephalic Oral: Moist Mucosa Neck: Supple, No JVD, Negative Carotid Bruits Lungs: Clear to auscultation, Normal air movement Cardiovascular: Regular rate, Regular Rhythm, Normal S1, Normal S2, No murmurs Abdomen: Bowel Sounds Present, Soft, Non Tender, Non-Distended Extremities: No edema Skin: No rashes, No breakdown Musculoskeletal: No Tenderness to Palpation of Joints or Extremities Lymphatic: No Cervical, Supraclavicular, or Inguinal Adenopathy Neurological: Cranial nerves II-XII grossly intact, Neuro grossly intact Psych/Mental Status: Normal Affect, Appropriate Patient seen and examined prior to discharge. Physical assessment as noted above. Patient is stable for discharge with follow up recommendations as noted above. This patient was seen by TYRONE Saleh under the supervision of Dr. Cooney. - Physical Exam Vitals/I&O's: Vital Signs Temp Pulse Resp BP Pulse Ox 98.2 F 80 16 153/77 H 97 07/15/19 11:15 07/15/19 11:15 07/15/19 11:15 07/15/19 11:15 07/15/19 11:15 Oxygen Flow Rate (L/min) 2 Oxygen Delivery Method Room Air Weight: 153 lb 3.54 oz Body Mass Index (BMI) 20.7 Finger Stick Blood Glucose 98 Intake and Output for Last 24 Hours 07/13/19 07/14/19 07/15/19 23:59 23:59 23:59 Intake Total 0 / 0 1066.67 / 1066.67 Output Total 0 / 0 Balance 0 / 0 1066.67 / 1066.67 Laboratory Results 07/14/19 21:25: WBC 7.3, RBC 4.32 L, Hgb 12.0 L, Hct 37.8 L, MCV 87.5, MCH 27.8, MCHC 31.7 L, RDW Std Deviation 42.1, RDW Coeff of Kirsten 13.1, Plt Count 212, MPV 10.7, Immature Gran % (Auto) 0.100, Neut % (Auto) 75.1 H, Lymph % (Auto) 12.4 L, [place] % (Auto) 8.3, Eos % (Auto) 3.7, Baso % (Auto) 0.4, Absolute Neuts (auto) 5.5, Absolute Lymphs (auto) 0.91, Nucleated RBC % 0 07/14/19 21:25: PT Cancelled, INR Cancelled, APTT Cancelled 07/14/19 21:25: Sodium 135 L, Potassium 4.9, Chloride 106, Carbon Dioxide 28.0, Anion Gap 1 L, BUN 19 H, Creatinine 1.27, Estim Creat Clear Calc 50.78, Est GFR (MDRD) Af Amer 71, Est GFR (MDRD) Non-Af 58 L, BUN/Creatinine Ratio 15.0, Glucose 102, Calcium 8.3 L, Troponin I < 0.015 07/14/19 22:24: PT 13.9, INR 1.1, APTT 29.2 07/15/19 05:40: WBC 7.6, RBC 4.47 L, Hgb 12.1 L, Hct 39.1 L, MCV 87.5, MCH 27.1, MCHC 30.9 L, RDW Std Deviation 41.6, RDW Coeff of Kirsten 13.0, Plt Count 217, MPV 10.8, Immature Gran % (Auto) 0.300, Neut % (Auto) 79.6 H, Lymph % (Auto) 9.1 L, [place] % (Auto) 7.5, Eos % (Auto) 3.0, Baso % (Auto) 0.5, Absolute Neuts (auto) 6.1, Absolute Lymphs (auto) 0.69 L, Nucleated RBC % 0 07/15/19 05:40: Sodium 138, Potassium 4.4, Chloride 109 H, Carbon Dioxide 26.0, Anion Gap 3 L, BUN 18, Creatinine 1.14, Estim Creat Clear Calc 53.34, Est GFR (MDRD) Af Amer 80, Est GFR (MDRD) Non-Af 66, BUN/Creatinine Ratio 15.8, Glucose 102, Calcium 8.6, Total Bilirubin 0.50, AST 16, ALT 18, Alkaline Phosphatase 62, Total Protein 6.5, Albumin 3.2, Globulin 3.3, Albumin/Globulin Ratio 1.0, Triglycerides 99, Cholesterol 195, LDL Cholesterol 135 H, VLDL Cholesterol 20, HDL Cholesterol 40 07/15/19 05:40: Triglycerides Cancelled, Cholesterol Cancelled, LDL Cholesterol Cancelled, VLDL Cholesterol Cancelled, HDL Cholesterol Cancelled Current Medications Acetaminophen (Tylenol) 650 mg PO Q6H PRN PRN PRN Reason: Pain Score 1-10/Temp > 100.7 F Aspirin (Aspirin, Baby) 81 mg PO DAILY@0800 [facility] Last Admin: 07/15/19 08:07 Dose: 81 mg Documented by: Atorvastatin Calcium (Lipitor) 40 mg PO QHS [facility] Heparin Sodium (Porcine) (Heparin Na) 5,000 unit SC Q8 [facility] Last Admin: 07/15/19 05:14 Dose: 5,000 unit Documented by: Nitroglycerin (Nitrostat) 0.4 mg SUBLINGUAL Q5M PRN PRN Reason: CARDIAC/CHEST PAIN Sodium Chloride () 10 - 40 ml IV UD PRN PRN Reason: SALINE FLUSH Last Admin: 07/15/19 08:07 Dose: 10 ml Documented by: Discharge Diet: Low fat/ Low Cholesterol Discharge Activity: Return to Normal Activity Call your doctor if you observe: Shortness of breath, Dizziness, Fainting spells, Chest pain Home Medications: Medications to take at Discharge Ramipril [Altace] 10 mg PO DAILY 12/19/13 Tamsulosin HCl [Flomax] 0.4 mg PO DAILY 12/19/13 Aspirin [Aspirin, Baby] 81 mg PO DAILY@0800 #30 tab.chew 07/15/19 Atorvastatin Calcium [Lipitor] 40 mg PO QHS #30 tab 07/15/19 Finasteride 5 mg PO DAILY 07/15/19 Following Prescrptions Were Given to Patient: Aspirin [Aspirin, Baby] 81 mg PO DAILY@0800 #30 tab.chew Transmission Status: Received by [facility] Atorvastatin Calcium [Lipitor] 40 mg PO QHS #30 tab Transmission Status: Received by [facility] Primary Care Physician: Memo Richards MD [Primary Care Provider] - Please follow up with your Primary Care Physician in: 1 Week Please Follow Up With: Filippo Ayon MD When: 1-2 Weeks, may see [employer] Disposition: Home Minutes spent on discharge:: 35 Patient Condition:: Stable Medical Necessity - Tobacco Use Smoking Status: Former smoker Tobacco Use: Cigarettes Meaningful Use Info Meaningful Use Diagnoses (Choose all that apply): None applicable <Santos Cooney F - Last Filed: 07/16/19 08:51> Discharge Date and Diagnosis - Primary Discharge Diagnosis Active and Suspected Problems Aortic stenosis, severe (Acute) Pre-syncope (Acute) - Secondary Discharge Diagnosis Chronic Problems History of BPH (Chronic) History of hypertension (Chronic) Hospital Course and Treatment Summary of Care Provided: The patient is a 79 year old M [] - Physical Exam Vitals/I&O's: Vital Signs Temp Pulse Resp BP Pulse Ox 98.5 F 81 16 138/82 H 97 07/16/19 08:20 07/16/19 08:35 07/16/19 08:35 07/16/19 08:35 07/16/19 08:35 Oxygen Flow Rate (L/min) 2 Oxygen Delivery Method Room Air Weight: 153 lb 7.068 oz Body Mass Index (BMI) 20.7 Finger Stick Blood Glucose 98 Intake and Output for Last 24 Hours 07/14/19 07/15/19 07/16/19 23:59 23:59 23:59 Intake Total 0 / 0 1306.67 / 1306.67 25 Output Total 0 / 0 Balance 0 / 0 1306.67 / 1306.67 Current Medications Acetaminophen (Tylenol) 650 mg PO Q6H PRN PRN PRN Reason: Pain Score 1-10/Temp > 100.7 F Aspirin (Aspirin, Baby) 81 mg PO DAILY@0800 [facility] Last Admin: 07/16/19 06:01 Dose: 81 mg Documented by: Atorvastatin Calcium (Lipitor) 40 mg PO QHS [facility] Last Admin: 07/15/19 20:28 Dose: Not Given Documented by: Heparin Sodium (Beef Lung) (Heparin 500 Unit/5 Ml (100/Ml)) 500 unit IV UD PRN PRN Reason: HEPARIN FLUSH Sodium Chloride () 1,000 mls @ 0 mls/hr IV .Q0M [facility] Labetalol HCl (Trandate) 5 mg IV X1 PRN PRN Reason: SBP > 160 prior to sheath pull Sodium Chloride () 10 - 40 ml IV UD PRN PRN Reason: SALINE FLUSH Last Admin: 07/15/19 08:07 Dose: 10 ml Documented by: Disposition: Acute care Hospital Code Visit Addendum: Dr. Cooney I personally examined the patient and reviewed the chart. I agree with the above. 79-year-old male previously healthy presented after having an episode of vertigo and left-sided weakness while bowling. Initially he was thought to be a stroke and had a stroke work-up with an MRI which was normal. However he did have an echo that showed a critical aortic stenosis and therefore cardiology was consulted who proceeded with a cath this morning and on top of his aortic stenosis also had left main coronary artery disease with a 75% stenosis. He has normal left ventricular function and therefore was recommended transfer to the [facility] for cardiac intervention. In the meantime he was started on aspirin and Lipitor and continued on his ramipril. General: Alert, Oriented x3, Cooperative, No apparent distress HEENT: Atraumatic, PERRLA, EOMI, Normocephalic Oral: Moist Mucosa Neck: Supple, No JVD Lungs: Clear to auscultation, Normal air movement, No rhonchi, No wheeze, No rales Cardiovascular: Regular rate, Regular Rhythm, Normal S1, Normal S2, 2 out of 6 systolic ejection murmur left upper sternal border Abdomen: Soft, Non Tender, Non-Distended, No Hepato-splenomegaly Extremities: No edema, Capillary Refill Less than 3 Seconds Skin: No rashes, No breakdown Musculoskeletal: No Tenderness to Palpation of Joints or Extremities Neurological: Cranial nerves II-XII grossly intact, Motor Exam 5/5 strength throughout, Sensory exam intact to light touch and pain Psych/Mental Status: Normal Affect, Appropriate Inpatient E&M: 03070 Disch Hosp
--- NOTE | 2019-07-15 15:19 | PN_ITS ---
<Chantal Clayton - Last Filed: 07/15/19 15:23> Subjective: Discharge initially planned following work-up for TIA however echocardiogram resulted and demonstrated severe to critical aortic stenosis. Cardiology consult subsequently placed and plan for cath in a.m. - Physical Exam Vitals/I&O's: Vital Signs Temp Pulse Resp BP Pulse Ox 98.2 F 80 16 153/77 H 97 07/15/19 11:15 07/15/19 11:15 07/15/19 11:15 07/15/19 11:15 07/15/19 11:15 Oxygen Flow Rate (L/min) 2 Oxygen Delivery Method Room Air Weight: 153 lb 3.54 oz Body Mass Index (BMI) 20.7 Finger Stick Blood Glucose 98 Intake and Output for Last 24 Hours 07/13/19 07/14/19 07/15/19 23:59 23:59 23:59 Intake Total 0 / 0 1066.67 / 1066.67 Output Total 0 / 0 Balance 0 / 0 1066.67 / 1066.67 General: Alert, Oriented x3, Cooperative HEENT: Atraumatic, PERRLA, EOMI, Normocephalic Neck: Supple, No JVD, Negative Carotid Bruits Lungs: Clear to auscultation, Normal air movement Cardiovascular: Regular rate, Regular Rhythm, Normal S1, Normal S2, Murmur Abdomen: Bowel Sounds Present, Soft, Non Tender, Non-Distended Extremities: No clubbing, No cyanosis, No edema Skin: No rashes, No breakdown Musculoskeletal: No Tenderness to Palpation of Joints or Extremities Neurological: Cranial nerves II-XII grossly intact, Neuro grossly intact Psych/Mental Status: Normal Affect, Appropriate Laboratory Results 07/14/19 21:25: WBC 7.3, RBC 4.32 L, Hgb 12.0 L, Hct 37.8 L, MCV 87.5, MCH 27.8, MCHC 31.7 L, RDW Std Deviation 42.1, RDW Coeff of Kirsten 13.1, Plt Count 212, MPV 10.7, Immature Gran % (Auto) 0.100, Neut % (Auto) 75.1 H, Lymph % (Auto) 12.4 L, [place] % (Auto) 8.3, Eos % (Auto) 3.7, Baso % (Auto) 0.4, Absolute Neuts (auto) 5.5, Absolute Lymphs (auto) 0.91, Nucleated RBC % 0 07/14/19 21:25: PT Cancelled, INR Cancelled, APTT Cancelled 07/14/19 21:25: Sodium 135 L, Potassium 4.9, Chloride 106, Carbon Dioxide 28.0, Anion Gap 1 L, BUN 19 H, Creatinine 1.27, Estim Creat Clear Calc 50.78, Est GFR (MDRD) Af Amer 71, Est GFR (MDRD) Non-Af 58 L, BUN/Creatinine Ratio 15.0, Glucose 102, Calcium 8.3 L, Troponin I < 0.015 07/14/19 22:24: PT 13.9, INR 1.1, APTT 29.2 07/15/19 05:40: WBC 7.6, RBC 4.47 L, Hgb 12.1 L, Hct 39.1 L, MCV 87.5, MCH 27.1, MCHC 30.9 L, RDW Std Deviation 41.6, RDW Coeff of Kirsten 13.0, Plt Count 217, MPV 10.8, Immature Gran % (Auto) 0.300, Neut % (Auto) 79.6 H, Lymph % (Auto) 9.1 L, [place] % (Auto) 7.5, Eos % (Auto) 3.0, Baso % (Auto) 0.5, Absolute Neuts (auto) 6.1, Absolute Lymphs (auto) 0.69 L, Nucleated RBC % 0 07/15/19 05:40: Sodium 138, Potassium 4.4, Chloride 109 H, Carbon Dioxide 26.0, Anion Gap 3 L, BUN 18, Creatinine 1.14, Estim Creat Clear Calc 53.34, Est GFR (MDRD) Af Amer 80, Est GFR (MDRD) Non-Af 66, BUN/Creatinine Ratio 15.8, Glucose 102, Calcium 8.6, Total Bilirubin 0.50, AST 16, ALT 18, Alkaline Phosphatase 62, Total Protein 6.5, Albumin 3.2, Globulin 3.3, Albumin/Globulin Ratio 1.0, Triglycerides 99, Cholesterol 195, LDL Cholesterol 135 H, VLDL Cholesterol 20, HDL Cholesterol 40 07/15/19 05:40: Triglycerides Cancelled, Cholesterol Cancelled, LDL Cholesterol Cancelled, VLDL Cholesterol Cancelled, HDL Cholesterol Cancelled Current Medications Acetaminophen (Tylenol) 650 mg PO Q6H PRN PRN PRN Reason: Pain Score 1-10/Temp > 100.7 F Aspirin (Aspirin, Baby) 81 mg PO DAILY@0800 [facility] Last Admin: 07/15/19 08:07 Dose: 81 mg Documented by: Atorvastatin Calcium (Lipitor) 40 mg PO QHS [facility] Heparin Sodium (Porcine) (Heparin Na) 5,000 unit SC Q8 [facility] Last Admin: 07/15/19 05:14 Dose: 5,000 unit Documented by: Nitroglycerin (Nitrostat) 0.4 mg SUBLINGUAL Q5M PRN PRN Reason: CARDIAC/CHEST PAIN Sodium Chloride () 10 - 40 ml IV UD PRN PRN Reason: SALINE FLUSH Last Admin: 07/15/19 08:07 Dose: 10 ml Documented by: Medical Necessity - Tobacco Use Smoking Status: Former smoker Tobacco Use: Cigarettes Assessment/Plan All Active Problems Aortic stenosis, severe (Acute) Pre-syncope (Acute) Acute CVA (cerebrovascular accident) (Acute) 1. Critical aortic stenosis-echocardiogram demonstrated EF 65%, stage I diastolic dysfunction, severe to critical aortic stenosis. Cardiology consult placed. Plan for cath in a.m. 2. TIA-on aspirin, statin. MRI of brain and CTA of head and neck unremarkable. Echo per above. 3. Hypertension-stable, continue ramipril regimen. 4. BPH-continue Flomax regimen. DVT prophylaxis- heparin sc This patient was seen by TYRONE Saleh under the supervision of Dr. Cooney. <Santos Cooney F - Last Filed: 07/15/19 16:46> - Physical Exam Vitals/I&O's: Vital Signs Temp Pulse Resp BP Pulse Ox 98.2 F 94 16 153/77 H 97 07/15/19 11:15 07/15/19 14:54 07/15/19 11:15 07/15/19 11:15 07/15/19 11:15 Oxygen Flow Rate (L/min) 2 Oxygen Delivery Method Room Air Weight: 153 lb 3.54 oz Body Mass Index (BMI) 20.7 Finger Stick Blood Glucose 98 Intake and Output for Last 24 Hours 07/13/19 07/14/19 07/15/19 23:59 23:59 23:59 Intake Total 0 / 0 1066.67 / 1066.67 Output Total 0 / 0 Balance 0 / 0 1066.67 / 1066.67 Laboratory Results 07/14/19 21:25: WBC 7.3, RBC 4.32 L, Hgb 12.0 L, Hct 37.8 L, MCV 87.5, MCH 27.8, MCHC 31.7 L, RDW Std Deviation 42.1, RDW Coeff of Kirsten 13.1, Plt Count 212, MPV 10.7, Immature Gran % (Auto) 0.100, Neut % (Auto) 75.1 H, Lymph % (Auto) 12.4 L, [place] % (Auto) 8.3, Eos % (Auto) 3.7, Baso % (Auto) 0.4, Absolute Neuts (auto) 5.5, Absolute Lymphs (auto) 0.91, Nucleated RBC % 0 07/14/19 21:25: PT Cancelled, INR Cancelled, APTT Cancelled 07/14/19 21:25: Sodium 135 L, Potassium 4.9, Chloride 106, Carbon Dioxide 28.0, Anion Gap 1 L, BUN 19 H, Creatinine 1.27, Estim Creat Clear Calc 50.78, Est GFR (MDRD) Af Amer 71, Est GFR (MDRD) Non-Af 58 L, BUN/Creatinine Ratio 15.0, Glucose 102, Calcium 8.3 L, Troponin I < 0.015 07/14/19 22:24: PT 13.9, INR 1.1, APTT 29.2 07/15/19 05:40: WBC 7.6, RBC 4.47 L, Hgb 12.1 L, Hct 39.1 L, MCV 87.5, MCH 27.1, MCHC 30.9 L, RDW Std Deviation 41.6, RDW Coeff of Kirsten 13.0, Plt Count 217, MPV 10.8, Immature Gran % (Auto) 0.300, Neut % (Auto) 79.6 H, Lymph % (Auto) 9.1 L, [place] % (Auto) 7.5, Eos % (Auto) 3.0, Baso % (Auto) 0.5, Absolute Neuts (auto) 6.1, Absolute Lymphs (auto) 0.69 L, Nucleated RBC % 0 07/15/19 05:40: Sodium 138, Potassium 4.4, Chloride 109 H, Carbon Dioxide 26.0, Anion Gap 3 L, BUN 18, Creatinine 1.14, Estim Creat Clear Calc 53.34, Est GFR (MDRD) Af Amer 80, Est GFR (MDRD) Non-Af 66, BUN/Creatinine Ratio 15.8, Glucose 102, Calcium 8.6, Total Bilirubin 0.50, AST 16, ALT 18, Alkaline Phosphatase 62, Total Protein 6.5, Albumin 3.2, Globulin 3.3, Albumin/Globulin Ratio 1.0, Trigly cerides 99, Cholesterol 195, LDL Cholesterol 135 H, VLDL Cholesterol 20, HDL Cholesterol 40 07/15/19 05:40: Triglycerides Cancelled, Cholesterol Cancelled, LDL Cholesterol Cancelled, VLDL Cholesterol Cancelled, HDL Cholesterol Cancelled Current Medications Acetaminophen (Tylenol) 650 mg PO Q6H PRN PRN PRN Reason: Pain Score 1-10/Temp > 100.7 F Aspirin (Aspirin, Baby) 81 mg PO DAILY@0800 [facility] Last Admin: 07/15/19 08:07 Dose: 81 mg Documented by: Atorvastatin Calcium (Lipitor) 40 mg PO QHS [facility] Heparin Sodium (Porcine) (Heparin Na) 5,000 unit SC Q8 [facility] Last Admin: 07/15/19 16:29 Dose: Not Given Documented by: Nitroglycerin (Nitrostat) 0.4 mg SUBLINGUAL Q5M PRN PRN Reason: CARDIAC/CHEST PAIN Sodium Chloride () 10 - 40 ml IV UD PRN PRN Reason: SALINE FLUSH Last Admin: 07/15/19 08:07 Dose: 10 ml Documented by: Code Visit Addendum: Dr. Cooney I personally examined the patient and reviewed the chart. I agree with the above. 79-year-old male who presented with vertigo while bowling, it was felt that this could be a stroke as he was having left-sided symptoms however MRI of his brain was negative. Prior to discharge his echo resulted which showed a critical aortic stenosis and given his symptoms everything that he was feeling was likely secondary to his aortic stenosis. Cardiology was consulted to evaluate the patient however the patient is very resistant to having any type of diagnostic studies or even any intervention for this multiple attempts were made to talk him out of that decision and I explained to him that symptomatic aortic stenosis does not have a excellent prognosis. He states that he will think about it and potentially proceed with a cath in the morning. Inpatient E&M: 16256 Subs Hosp L2
--- NOTE | 2019-07-15 16:34 | PCM.CONS.C ---
Problem List (1) Aortic stenosis, severe Status: Acute (2) Pre-syncope Status: Acute Reason for Consult Date of Consultation: 07/15/19 Reason for Consultation: Severe aortic stenosis, presyncope History of Present Illness: The patient is a 79 year old M, previous [employer], previous smoker who quit around 30 years ago after approximately 19-csid-sylv smoking history, no previous known coronary artery disease, no previous catheterization, nondiabetic, with hypertension and BPH. Patient was told he had rheumatic fever as a child and has been told he had a murmur ever since he was a child but despite this was admitted to the [employer]. He has had no previous presyncope, syncopal episodes, myocardial infarction, catheterization, stress test, or CVA. 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 According to him he has never felt this before. EMS was called, and he was brought to the emergency room where he underwent a CT scan of his head which was negative for acute CVA followed by an MRI of his brain which again showed no overt CVA. As part of his work-up he underwent a 2D echo with Doppler today which I reviewed which demonstrated intact normal LV function with an EF of 65%, normal right-sided pressures, and severe to critical aortic stenosis with a peak/mean gradient of 61 and 38 mmHg giving estimated aortic valve area of approximately 0.78 cm? consistent with severe to critical aortic stenosis. On further history the patient has remained quite active and denies any degradation of his activity level, presyncope, syncope, or feeling of lightheadedness or dizziness. Patient is quite resistant to proceeding with aortic valve replacement, or open heart surgery. [] Past Medical History Allergies/Adverse Reactions: Allergies No Known Allergies Allergy (Verified 12/19/13 16:39) Home Medications: Ambulatory Orders Medication Instructions Recorded Ramipril [Altace] 10 mg PO DAILY 12/19/13 Tamsulosin HCl [Flomax] 0.4 mg PO DAILY 12/19/13 Aspirin [Aspirin, Baby] 81 mg PO DAILY@0800 #30 tab.chew 01/08/20 Atorvastatin Calcium [Lipitor] 40 mg PO QHS #30 tab 07/15/19 Past Medical History (Chronic Problems): Chronic Problems History of BPH (Chronic) History of hypertension (Chronic) Surgical History: noncontributory Psychiatric History: No pertinent psych hx Lives: With Family, - - Unknown Smoking Status: Former smoker Tobacco Use: Cigarettes Alcohol: None Drugs: None Review of Systems - Review of Systems General: Denies: Fever, Night Sweats, Fatigue Cardiovascular: Reports: Lightheadedness, Dizziness, Near Syncope. Denies: Chest Discomfort, Shortness of Breath, Orthopnea, PND, Peripheral Edema, Palpitations, Syncope Respiratory: Denies: Cough, Sputum Production, Hemoptysis Gastrointestinal: Denies: Hematemesis, Hematochezia, Melena Genitourinary: Denies: Dysuria, Hematuria Skin: Denies: Rash Subjectve: Patient laying in bed, no acute distress. Objective: Vital Signs Temp Pulse Resp BP Pulse Ox 98.2 F 94 16 153/77 H 97 07/15/19 11:15 07/15/19 14:54 07/15/19 11:15 07/15/19 11:15 07/15/19 11:15 Oxygen Flow Rate (L/min) 2 Oxygen Delivery Method Room Air Weight: 153 lb 3.54 oz Body Mass Index (BMI) 20.7 Finger Stick Blood Glucose 98 Intake and Output for Last 24 Hours 07/13/19 07/14/19 07/15/19 23:59 23:59 23:59 Intake Total 0 / 0 1066.67 / 1066.67 Output Total 0 / 0 Balance 0 / 0 1066.67 / 1066.67 General: Awake, Alert, Oriented x 3 HEENT: PERRL, EOMI, Sclera Non Icteric Neck: Supple, Good ROM, No Lymph Node Enlargement Lungs: Clear to auscultation Cardiovascular: Regular Rhythm, Normal S2, No Rubs, No Gallops Murmur Murmur: Grade 3/6, High Pitched, Crescendo-Decrescendo Vascular: Radiation of Murmur to Carotid Arteries, - - Decreased carotid upstroke of approximately 1+ bilaterally. Abdomen: Bowel Sounds Present, Soft, Non Tender, No HSM, No Organomegaly 07/14/19 21:25: WBC 7.3, RBC 4.32 L, Hgb 12.0 L, Hct 37.8 L, MCV 87.5, MCH 27.8, MCHC 31.7 L, Plt Count 212, MPV 10.7, Immature Gran % (Auto) 0.100, Neut % (Auto) 75.1 H, Lymph % (Auto) 12.4 L, [place] % (Auto) 8.3, Eos % (Auto) 3.7, Baso % (Auto) 0.4, Absolute Neuts (auto) 5.5, Nucleated RBC % 0 07/14/19 21:25: PT Cancelled, INR Cancelled, APTT Cancelled 07/14/19 21:25: Sodium 135 L, Potassium 4.9, Chloride 106, Carbon Dioxide 28.0, Anion Gap 1 L, BUN 19 H, Creatinine 1.27, Est GFR (MDRD) Af Amer 71, Est GFR (MDRD) Non-Af 58 L, BUN/Creatinine Ratio 15.0, Glucose 102, Calcium 8.3 L, Troponin I < 0.015 07/14/19 22:24: PT 13.9, INR 1.1, APTT 29.2 07/15/19 05:40: WBC 7.6, RBC 4.47 L, Hgb 12.1 L, Hct 39.1 L, MCV 87.5, MCH 27.1, MCHC 30.9 L, Plt Count 217, MPV 10.8, Immature Gran % (Auto) 0.300, Neut % (Auto) 79.6 H, Lymph % (Auto) 9.1 L, [place] % (Auto) 7.5, Eos % (Auto) 3.0, Baso % (Auto) 0.5, Absolute Neuts (auto) 6.1, Nucleated RBC % 0 07/15/19 05:40: Sodium 138, Potassium 4.4, Chloride 109 H, Carbon Dioxide 26.0, Anion Gap 3 L, BUN 18, Creatinine 1.14, Est GFR (MDRD) Af Amer 80, Est GFR (MDRD) Non-Af 66, BUN/Creatinine Ratio 15.8, Glucose 102, Calcium 8.6, Total Bilirubin 0.50, Triglycerides 99, Cholesterol 195, LDL Cholesterol 135 H, VLDL Cholesterol 20, HDL Cholesterol 40 07/15/19 05:40: Triglycerides Cancelled, Cholesterol Cancelled, LDL Cholesterol Cancelled, VLDL Cholesterol Cancelled, HDL Cholesterol Cancelled Rhythm: EKG: ECHO:The estimated ejection fraction is 65 %. Stage 1 diastolic dysfunction. Mild (1+) tricuspid valve insufficiency. Right ventricular systolic pressure estimated to be 24 mmHg. Severe restriction of the aortic valve. Probable fixed and mobile right coronary cusp. Severe to critical aortic stenosis. Peak aortic valve gradient 61 mmHg. Mean aortic valve gradient 39 mmHg. Calculated aortic valve area (continuity equation) is 0.78 cm2. Trivial aortic valve insufficiency. There is no comparison study available. Stress Test: Cardiac Cath: PCI: CT Surgery: Holter monitor: EPS: PPM: CXR: Chest CT Scan: Assessment/Plan 1. Presyncope: The patient was found to have severe to critical aortic stenosis with a peak/mean gradient of 61/38 mmHg respectively, given an estimated aortic valve area of 0.78 cm?. I explained to the patient, his daughter, and his [id number], the critical nature of his aortic valve and that he has been golden up to this point not to have had a syncopal episode. I have explained to the patient and his family that he may be a candidate for percutaneous aortic valve replacement at the [facility], should he be found to have relatively normal coronary arteries. I explained the patient and his family that the next up would be to do at least a left heart catheterization to evaluate his coronary anatomy. If he has no significant coronary disease I would recommend he be directly transferred to the [facility] for work-up of TAVR. Patient is somewhat resistant to proceed with catheterization let alone TAVR or bypass surgery, and explained him the risk/benefits of the catheterization procedure including specific attention to lack of onsite surgical backup, as well as to the downside of not proceeding with additional corrective measures for his aortic valve including syncope, presyncope, and possible crashing of his car while he is driving. After long and thorough discussion with the patient and his family he wishes to discuss it with them regarding how to move forward. If the patient decides not to proceed with catheterization or aortic valve corrective measures, I am very concerned that he may be a threat to himself or others by driving, and would recommend that his driving privileges be suspended until such time as his aortic valve is been corrected. Patient is at high risk for syncopal event, which could happen anytime, the results of which could be devastating if he is driving his car. If the patient decides to proceed with catheterization, I would not preload him with Plavix, but rather just baby aspirin as he most likely requires aortic valve replacement one way or the other. This may hinder his ability to get this corrected sooner than later. I also explained to the patient and the family that if he were to be a candidate for TAVR he would need additional work-up at the [facility] which may disqualify him from TAVR depending upon his peripheral vascular anatomy and other factors. 2. Hypertension: I would recommend cautious use of nitrate-based products, but would continue his ramipril if he is able to tolerate it and does not demonstrate orthostatic hypotension. 3. Hyperlipidemia: Recommend obtaining a fast lipid profile to complete his cardiac or stratification. 4. Discussed with Dr. Cooney. Discussed with the family and the patient for the better part of 40 minutes. Thank you very much for the opportunity participate in the cardiac care of your patient. Code Visit Inpatient E&M: 22439 Init Hosp L2
[2019-07-16] VITALS (13 sets, daily range): BP systolic 113–147; BP diastolic 78–98; PULSE 66–90; RESP 16–20; TEMP 36.5–36.9; O2SAT 95–99
--- NOTE | 2019-07-16 05:55 | EKG12_ITS ---
Test Reason : AM EKG Blood Pressure : / mmHG Vent. Rate : 070 BPM Atrial Rate : 070 BPM P-R Int : 166 ms QRS Dur : 108 ms QT Int : 394 ms P-R-T Axes : 059 -30 046 degrees QTc Int : 425 ms Normal sinus rhythm Left axis deviation Abnormal ECG When compared with ECG of 14-JUL-2019 21:45, MANUAL COMPARISON REQUIRED, DATA IS UNCONFIRMED Confirmed by ALVAREZ JORGE, KARINA ([id number]), food expeditor CHINA HESS ([id number]) on 07/17/2019 1:22:01 PM Referred By: DR STANLEY Confirmed By:RODOLFO PINO MD
[2019-07-16] MEDS: Aspirin 81 MG TAB.CHEW PO (06:01)
[2019-07-16] MEDS: DiphenhydrAMINE 25 MG Capsule 50 MG PO (07:01)
--- NOTE | 2019-07-16 08:04 | CL.D_ITS ---
Patient Name: JESSENIA DURON Study Date: 07/16/2019 Performing: Santiago Guzman MD Ht: 72.04 inches 183 cm : 1940 Wt: 154.32 lbs 70 kg Age: 79 Gender: male BSA: 1.91 PROCEDURE(S) PERFORMED SF06-TOJ/COR/LV CLINICAL PROFILE AND INDICATIONS Indications: Suspected CAD, Valvular Disease, Pre-Operative Evaluation Heart Failure: None Stress/Imaging Stress/Image Study Performed: No Angina Classification Anginal Classification w/in 2 Weeks: No symptoms CAD Presentations: No Sxs, no angina. Other: Lightheadness, presyncope. Comorbidities/Risk Factors: Hypertension Dyslipidemia CONCLUSIONS Perserved Left Ventricular systolic function with normal EDP Alutiiq Multivessel CAD (LM, LAD, RCA) Aortic Valve Stenosis- Severe RECOMMENDATIONS Surgery consult for coronary revascularization Surgery consult for valvular disease Surgery consult for Valve Replacement surgery D/w Dr Cooney. Ar[facility] tx to [facility]. Manual sheath removal. DESCRIPTION OF PROCEDURE The patient arrived to the procedure lab. The risks and benefits of the procedure as well as a full d escription of our services here and current unavailability of surgical backup were fully explained to the patient and/or their significant other prior to the catheterization. The Timeout was completed, verifying the correct patient and procedure. The patient's procedural site was prepped and draped in the usual fashion. Local anesthetic was given subcutaneously to right groin region with Lidocaine 2%. Using a modified Seldinger technique, arterial access was obtained via the right femoral artery, a 4 Fr sheath was inserted Left Coronary Artery selective angiography was performed in multiple views us ing a 4 Fr. JL5 catheter. Right Coronary Artery selective angiography was then performed in multiple views using a 4 Fr. 3DRC catheter. Left Ventriculography was performed in [place] projection using a 4 Fr . Pigtail catheter. LV to AO pullback pressures were then recorded.The arterial sheath was pulled and manual compression applied until hemostasis is achieved.. The arterial sheath was pulled a nd manual compression applied until hemostasis is achieved. 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, Aneurysmal LEFT ANTERIOR DESCENDING ARTERY: 70 % Stenosis MID LAD: 60 % Stenosis CIRCUMFLEX ARTERY: OM 1: Mid - Moderate luminal irregularities up to 50% RIGHT CORONARY ARTERY: PROX RCA: Moderate calcification, 75 % Stenosis DISTAL RCA: 75 % Stenosis VALVE FINDINGS: Aortic Valve Calcification - moderate Aortic Valve Stenosis - severe COMPLICATIONS No Complications PROCEDURE MEDICATIONS Oxygen: 2 L/min via nasal cannula SUMMARY OF HEMODYNAMIC DATA Time AIR REST ECG 07:15:27 AO 159/86 (112) SA 07:40:46 LV 203/-17, 8 07:49:46 LV 208/-24, 6 07:49:51 LVp 199/-28, 5 07:49:58 AOp 147/73 (105) 07:50:03 Valve Area (c P-P/ms Time AIR REST Aortic 0.00 37.9 mn/272 ms52.0 pk/272 ms 07:49:58 Signed By Santiago Guzman MD On 07/16/2019 08:04:07 Santiago Guzman MD
[2019-07-16] MEDS: Acetaminophen 325 MG Tablet 650 MG PO (12:20)
--- NOTE | 2019-07-16 12:36 | NURSING ---
Bedrest is complete. Walked with patient in hallway. Tolerated well. Cath site C/D/I. No hematoma noted.
[2019-07-16] MEDS: 0.9% Saline Lock 10 ML Syringe IV (15:47)
--- NOTE | 2019-07-16 16:22 | NURSING ---
Report called to [facility] to Anais LAGUNA on [id number] at 1600.
--- NOTE | 2019-07-16 16:23 | NURSING ---
Reviewed and agreed on all charting with Vanessa Suresh RN
== END 2019-07-16 16:16 | disposition short-term general hospital (02) | DRG 69 ==
LOC: ED 22:33 → PCU 23:00
PROVIDERS: Admitting Provider Internal Medicine; Emergency Provider Emergency Medicine; Family Provider Family Medicine; PCP Family Medicine; Visit Provider Family Medicine
DX: G45.9 Transient cerebral ischemic attack, unspecified (principal); I10 Essential (primary) hypertension; N40.0 Benign prostatic hyperplasia without lower urinary tract symptoms; Y93.54 Activity, bowling; I25.10 Atherosclerotic heart disease of native coronary artery without angina pectoris; I35.0 Nonrheumatic aortic (valve) stenosis; Z87.891 Personal history of nicotine dependence
CPT/HCPCS: 70450; 70496; 70498; 70551; 80048; 80053; 80061; 84484; 85025; 85610; 85730; 92610; 93005; 93306; 93458; 94762; 97802; 99285; J7030; J7040; Q9967; A4216; C1769; C1894

== ENCOUNTER 2019-08-31 15:03 | Inpatient (IN) | payer MEDICARE, BC, SELFPAY ==
[2019-07-15 20:21] VITALS: BMI 20.7
[2019-08-31 15:26] VITALS: BMI 18.4
[2019-08-31 15:28] VITALS: BP 98/54; PULSE 98; RESP 18; TEMP 36.8; O2SAT 98
[2019-08-31 19:26] VITALS: BP 102/58; PULSE 92; RESP 18; TEMP 36.7; O2SAT 97
[2019-08-31] MEDS: Tamsulosin HCl 0.4 MG Capsule PO (20:30)
[2019-08-31 20:31] VITALS: BP 102/58; PULSE 92
[2019-08-31] MEDS: Metoprolol(XL)Succ 25 MG Tablet PO (20:31)
[2019-08-31] MEDS: Heparin Injection (Vial) 5,000 UNIT/ML VIAL 5000 UNIT SC (20:31)
[2019-08-31 22:00] VITALS: PULSE 92; O2SAT 96; BMI 18.4
[2019-09-01] VITALS (7 sets, daily range): BP systolic 87–104; BP diastolic 56–68; PULSE 80–99; RESP 16–18; TEMP 36.4–36.5; O2SAT 91–96; BMI 18.4
--- NOTE | 2019-09-01 07:01 | NURSING ---
pt refused a.m. ADLs this a.m. Pt states he wants to go home and is frustrated that he has to be here. Staff provided reassurance but pt wants to talk with as soon as he can. Pt refused getting dressed and was found talking on the phone when staff checked on pt a while later.
[2019-09-01] MEDS: Multivitamins,Therapeutic Tablet 1 TABLET PO (08:24)
[2019-09-01] MEDS: Aspirin 81 MG TAB.CHEW PO (08:24)
[2019-09-01] MEDS: Heparin Injection (Vial) 5,000 UNIT/ML VIAL 5000 UNIT SC ×2 (08:25→20:45)
[2019-09-01] MEDS: Clopidogrel Bisulfate 75 MG Tablet PO (08:25)
[2019-09-01] MEDS: Lidocaine 5% Patch 1 PATCH TOPICAL (08:26)
--- NOTE | 2019-09-01 08:46 | HP.PCM_ITS ---
Problem List (1) H/O ischemic left MCA stroke Status: Chronic Comment: 07/22/19 (2) Hyperlipidemia Status: Chronic (3) Paroxysmal atrial fibrillation Status: Resolved Comment: post op CABG (4) History of rheumatic fever Status: Chronic (5) Tobacco dependence in remission Status: Chronic Comment: Quit smoking in 1989 (6) S/P CABG x 3 Status: Acute Comment: 08/18/19 at [facility] THAKKAR to LAD, SVG to OM1, SVG to PDA (7) Urine retention Status: Resolved (8) Multi-vessel coronary artery stenosis Status: Chronic Comment: Preserved Left Ventricular systolic function with normal EDP. [place] Multivessel CAD (LM, LAD, RCA). Aortic Valve Stenosis- Severe. Surgery consult for coronary revascularization; Surgery consult for Valve Replacement surgery D/w Dr Cooney. Arrange tx to [facility]. 07/16/2019 per DJN @[facility] (9) History of left heart catheterization Status: Chronic Comment: Preserved Left Ventricular systolic function with normal EDP. [place] Multivessel CAD (LM, LAD, RCA). Aortic Valve Stenosis- Severe. Surgery consult for coronary revascularization; Surgery consult for Valve Replacement surgery D/w Dr Cooney. Arrange tx to [facility]. 07/16/2019 per DJN @[facility] (10) Aortic stenosis, severe Status: Acute (11) History of BPH Status: Chronic (12) History of hypertension Status: Chronic (13) Acute CVA (cerebrovascular accident) Status: Chronic Comment: Left MCA July 2019 (14) History of aortic valve replacement with bioprosthetic valve Status: Acute Comment: 08/19/2019 at [facility] with a JAMIN clip. Perimount prosthetic aortic valve (size #23) (15) Mediastinal hematoma Status: Acute Qualifiers: Encounter type: subsequent encounter Qualified Code(s): S27.892D - Contusion of other specified intrathoracic organs, subsequent encounter Comment: Taken to surgery 08/19/2019 at [facility] for evacuation of mediastinal hematoma due to hemorrhagic shock and hemothorax (16) Presbycusis of both ears Status: Acute (17) Hemothorax, left Status: Resolved (18) Pneumothorax, right Status: Resolved (19) Severe protein-calorie malnutrition Status: Chronic (20) Left ventricular hypertrophy Status: Chronic (21) History of prostate cancer Status: Acute History of Present Illness Date of Admission: 08/31/19 Chief Complaint: post stroke debility with physical debility due to recent CABG The pt is a 79-year-old male with a PMH of hypertension, hyperlipidemia, multivessel coronary artery disease, severe aortic stenosis, BPH with history of urine retention, CABG x3 at [facility] on 08/18/2019, bioprosthetic aortic valve replacement at [facility] on 08/18/2019, left atrial appendage clip on 08/18/2019, left MCA ischemic CVA, bilateral presbycusis with hearing aids, severe protein calorie malnutrition, recent left hemothorax and right pneumothorax requiring chest tubes and evacuation of a mediastinal hematoma causing hemorrhagic shock on 08/19/2019 at [facility] admitted to the Inpatient rehab unit at [facility] on 08/31/2019 for debility secondary to recent CABG, aortic valve replacement, left atrial appendage clip a nd recent L MCA ischemic CVA for greater than 3 hours of therapy daily with a goal of returning home at or near his prior level of independence. The patient lives at home by himself but his son lives on the same lot behind Abelardo's house and another one of his children lives about a block and a half away. He still works as a printer. Abelardo was independent with ADL's, mobility and driving prior to hospitalization. He did not require any AD's. Post op ECHO showed a 65% EF. Urine retention post op recently resolved with restarting Flomax. Could not tolerate Proscar due to hypotension. Past Medical History Past Medical History (Chronic Problems): Chronic Problems (Last Reviewed 09/01/19 @ 10:[address] Pamela Storey, DO) H/O ischemic left MCA stroke (Chronic) 07/22/19 Hyperlipidemia (Chronic) History of rheumatic fever (Chronic) Tobacco dependence in remission (Chronic) Quit smoking in 1989 Severe protein-calorie malnutrition (Chronic) Left ventricular hypertrophy (Chronic) Multi-vessel coronary artery stenosis (Chronic) Preserved Left Ventricular systolic function with normal EDP. [place] Multivessel CAD (LM, LAD, RCA). Aortic Valve Stenosis- Severe. Surgery consult for coronary revascularization; Surgery consult for Valve Replacement surgery D/w Dr Cooney. Arrange tx to [facility]. 07/16/2019 per [facility] History of left heart catheterization (Chronic 07/16/19) Preserved Left Ventricular systolic function with normal EDP. [place] Multivessel CAD (LM, LAD, RCA). Aortic Valve Stenosis- Severe. Surgery consult for coronary revascularization; Surgery consult for Valve Replacement surgery D/w Dr Cooney. Arrange tx to [facility]. 07/16/2019 per [facility] History of BPH (Chronic) History of hypertension (Chronic) Acute CVA (cerebrovascular accident) (Chronic) Left [facility] July 2019 Medical History: Medical History (Last Reviewed 09/01/19 @ 10:[address] Pamela Storey DO) Multi-vessel coronary artery stenosis (Chronic) I25.10 Preserved Left Ventricular systolic function with normal EDP. [place] Multivessel CAD (LM, LAD, RCA). Aortic Valve Stenosis- Severe. Surgery consult for coronary revascularization; Surgery consult for Valve Replacement surgery D/w Dr Cooney. Arrange tx to [facility]. 07/16/2019 per [facility] Allergies No Known Allergies Allergy (Verified 12/19/13 16:39) Home Medications: Ambulatory Orders Medication Instructions Recorded Tamsulosin HCl [Flomax] 0.4 mg PO DAILY 12/19/13 Acetaminophen [Tylenol] 325 mg PO Q8H PRN PRN 08/31/19 Aspirin [Aspirin, Baby] 81 mg PO DAILY@0800 08/31/19 Clopidogrel Bisulfate [Plavix] 75 mg PO DAILY 08/31/19 Furosemide [Lasix] 20 mg PO DAILY 08/31/19 Heparin Sodium,Porcine/Pf [Heparin 5,000 units SQ BID 08/31/19 5 Unit/5 ml (1/ml) Syr] Lidocaine [Salonpas] 1 patch TOPICAL DAILY 08/31/19 Metoprolol Succinate 25 mg PO DAILY 08/31/19 Multivitamin,Therapeutic [Thera] 1 tab PO DAILY 08/31/19 Surgical History: Surgical History (Last Reviewed 09/01/19 @ 10:[address] Pamela Storey DO) History of left heart catheterization (Chronic) Onset Date: 07/16/19 Z98.890 Preserved Left Ventricular systolic function with normal EDP. [place] Multivessel CAD (LM, LAD, RCA). Aortic Valve Stenosis- Severe. Surgery consult for coronary revascularization; Surgery consult for Valve Replacement surgery D/w Dr Cooney. Arrange tx to [facility]. 07/16/2019 per RADHA @[facility] Surgical History: noncontributory, coronary bypass surgery, - - bioprosthetic AVR at [facility] on 08/18/19, JAMIN clip 08/18/19, Psychiatric History: No pertinent psych hx Lives: Alone Smoking Status: Former smoker - 15 Pack year hx.......quit in 1989 or before Tobacco Use: Cigarettes Alcohol: Occasional Drugs: None - *Family History Maternal History Items: - - pt unable to recall FH due to =recent encephalopathy after L MCA stroke and family not present Review of Systems Constitutional: Reports: Anorexia, Weakness, Weight Change - his wt in early July was 162 lbs and that is his normal weight. He is now `136 lbs.. Denies: Chills, Fever Eyes: Denies: Blurred vision HEENT: Reports: Difficulty Hearing - he does not have his hearing aids in, Hard of Hearing. Denies: Difficulty Swallowing, Head Aches, Nasal Congestion, Sinus Congestion, Sinus Drainage, Sore Throat Cardiovascular: Denies: Chest Pain, Edema, Light Headedness, Orthopnea, Palpitations Respiratory: Reports: Shortness of breath upon exertion. Denies: Cough, Hemoptysis, Pleuritic Pain, Shortness of breath at rest, Sputum production Gastrointestinal: Denies: Abdominal Pain, Constipation, Diarrhea, Dyspepsia, Nausea, Vomiting Genitourinary: Reports: - - =feels as though he completely empties his bladder when he voids. Post void bladder scan admission was 0.. Denies: Dysuria, Hesitancy Musculoskeletal: Denies: Back Pain, Joint Pain, Joint swelling, Joint Tenderness Skin: Denies: Jaundice, Rash, Wounds Neurological: Reports: Confusion - he told me he was 74 and he could not remember Dr. Montiel's name but knew where his office was. He is having trouble navigating his cell phone and his family says he has been having trouble with short term memory starting in July. Denies: Double vision, Slurred speech, Focal weakness, Numbness, Tingling, Tremor, Seizures Psychiatric: Denies: Anxiety, Depression, Homicidal Ideations, Suicidal Ideations Endocrine: Reports: Change in Body Habitus - has has lost almost 30 lbs in the past 6 weeks.. Denies: Hx of Irradiation, Hx of Thyroiditis Hematologic/ Lymphatic: Denies: Easy Bruising, Easy Bleeding, Hx of blood clot VTE Information - Inpt Only VTE Present on Admission: No VTE Mechan Device Prophylaxis: Knee High JUAN CARLOS Hose VTE Pharm Prophylaxis ordered?: Yes Patient Problems: Active and Suspected Problems (Last Reviewed 09/01/19 @ 10:[address] Pamela Storey, DO) S/P CABG x 3 (Acute) 08/18/19 at [facility] to LAD, SVG to OM1, SVG to PDA History of aortic valve replacement with bioprosthetic valve (Acute) 08/19/2019 at [facility] with a JAMIN clip. Perimount prosthetic aortic valve (size #23) Mediastinal hematoma (Acute) Taken to surgery 08/19/2019 at [facility] for evacuation of mediastinal hematoma due to hemorrhagic shock and hemothorax Presbycusis of both ears (Acute) History of prostate cancer (Acute) - Physical Exam Vitals/I&O's: Vital Signs Temp Pulse Resp BP Pulse Ox 97.5 F L 90 16 91/56 L 96 09/01/19 08:23 09/01/19 08:23 09/01/19 08:23 09/01/19 08:23 09/01/19 08:23 Oxygen Delivery Method Room Air Weight: 136 lb 0.403 oz Body Mass Index (BMI) 18.4 Finger Stick Blood Glucose 98 Intake and Output for Last 24 Hours 08/30/19 08/31/19 09/01/19 23:59 23:59 23:59 Intake Total 120 / 120 Output Total 150 / 150 Balance -30 / -30 General: Alert, Oriented x3, Cooperative, No apparent distress, Well developed, - - thin. He is lying flat in bed watching TV and he is not tachypneic and denies SOB. HEENT: Atraumatic, PERRLA, EOMI, Normocephalic Oral: Dry Mucosa Neck: Supple, No JVD, Negative Carotid Bruits, No Nodes, No Nuchal Rigidity, Trachea Midline Lungs: Normal air movement, No rhonchi, No wheeze, Rales - in the bases vs crackles secondary to residual crepitus after the BL CT's were removed, - - He is not tachypneic, denies shortness of breath, no conversational dyspnea, no accessory muscle use. He has pectus excavatum of the distal sternum. Cardiovascular: Regular rate, Regular Rhythm, Normal S1, Normal S2, Murmur - He has a systolic MM at the LLSB. He has a vertical heart and the PMI is displaced inferior and medial., No rub noted, No Gallop Abdomen: Bowel Sounds Present, Soft, Non Tender, Non-Distended, No Hepato- splenomegaly, - - No guarding with palpation Extremities: No clubbing, No cyanosis, No edema, Capillary Refill Less than 3 Seconds, No Calf Tenderness, Peripheral Pulses Normal, - - Negative Homans, negative Estuardo Skin: No rashes, No breakdown, Ulcer/ Wound - he has multiple wounds of the c hest and the abdomen. There is an incision in the mid epigastric area with sutures that is well coapted and without rosie-incisional erythema or DC. It is not warm to touch. There are also wounds at the sites of prior drains and chest tubes and none appear to be infected. Musculoskeletal: No Tenderness to Palpation of Joints or Extremities, Muscle Wasting Neurological: Cranial nerves II-XII grossly intact, Neuro grossly intact, - - he is having some cognitive problems otherwise there are no focal neurologic deficits Psych/Mental Status: Normal Affect, Appropriate Current Medications Acetaminophen (Tylenol) 325 - 650 mg PO Q8H PRN PRN PRN Reason: Pain Score 1-10/10 or Fever Aspirin (Aspirin, Baby) 81 mg PO DAILY@0800 [facility] Last Admin: 09/01/19 08:24 Dose: 81 mg Documented by: Bisacodyl (Dulcolax) 10 mg RECTAL .PRN X 1 PRN PRN Reason: Constipation Clopidogrel Bisulfate (Plavix) 75 mg PO DAILY [facility] Last Admin: 09/01/19 08:25 Dose: 75 mg Documented by: Furosemide (Lasix) 20 mg PO DAILY [facility] Stop: 09/04/19 10:01 Heparin Sodium (Porcine) (Heparin Na) 5,000 unit SC BID [facility] Last Admin: 09/01/19 08:25 Dose: 5,000 unit Documented by: Lidocaine (Lidoderm Patch) 1 patch TOPICAL DAILY [facility] Last Admin: 02/25/20 08:26 Dose: 1 patch Documented by: Magnesium Hydroxide (Milk Of Magnesia) 30 ml PO .PRN X 1 PRN PRN Reason: Constipation Metoprolol Succinate (Toprol Xl (Beta Kingsley)) 25 mg PO 2199 [facility] Last Admin: 08/31/19 20:31 Dose: 25 mg Documented by: Multivitamins (Multivitamin) 1 tablet PO DAILY@0800 [facility] Last Admin: 09/01/19 08:24 Dose: 1 tablet Documented by: Nutritional Formula (Lactose Free) (Ensure Enlive) 120 ml PO 4X/DAY [facility] Last Admin: 09/01/19 08:25 Dose: Not Given Documented by: Senna/Docusate Sodium (Senokot-S, Rosie-Colace) 2 tablet PO BID [facility] Last Admin: 09/01/19 08:25 Dose: Not Given Documented by: Tamsulosin HCl (Flomax) 0.4 mg PO 2199 [facility] Last Admin: 08/31/19 20:30 Dose: 0.4 mg Documented by: Assessment/Plan All Active Problems (Last Reviewed 09/01/19 @ 10:[address] Pamela Storey, DO) Paroxysmal atrial fibrillation (Resolved) S/P CABG x 3 (Acute) Urine retention (Resolved) History of aortic valve replacement with bioprosthetic valve (Acute) Mediastinal hematoma (Acute) Presbycusis of both ears (Acute) Hemothorax, left (Resolved) Pneumothorax, right (Resolved) History of prostate cancer (Acute) Aortic stenosis, severe (Acute) Pre-syncope (Resolved) Impressions 1. post stroke debility - recent L MCA ischemic CVA 07/22/19. Primary disability is cognitive. 2. physical debility due to recent extensive surgery including CABG x3 vessels, bioprosthetic aortic valve replacement and JAMIN clip on 08/18/19, re-operated on 08/19/21 for hemorrhagic shock and mediastinal hematoma, L CT for L hemothorax, R CT for pneumothorax and severe protein calorie malnutrition with a recent 26 lb wt loss in the past 6 weeks. 3. Elevated LFT's - amiodarone discontinued 4. severe protein-calorie malnutrition - earth science professor is on consult 5. Borderline hypotension with negative orthostatics. Hold the Lasix today. 6. Chronic medical dx: BPH (with urine retention post-op - resolved)/HTN/HLD (not currently on a statin due to increased LFT's)/hx of rheumatic fever/tobacco dependence in remission/coronary artery disease /left ventricular hypertrophy - complicate care, management, recovery and prognosis. PLAN PT for gait stability OT for ADL's ST for evaluation for cognitive deficits Analgesics as needed Bowel protocol Fall precautions Assess for Anxiety/Depression GI prophylaxis not indicated at this time. No N/V/dyspepsia/reflux DVT prophylaxis with heparin 5000 units subcu twice daily Follow up with Dr. Memo Richards following DC from Rehab and also has scheduled F/U at [facility] on 09/08. He has several appts scheduled. He follows up with Dr. Montiel yearly. CBC with differential, CMP, magnesium, phosphorus in the a.m. Will discuss with him following up with cardiology in [place] in [address] Guzman for cardiac cath in July and Dr. Guzman talked extensively with the family.
--- NOTE | 2019-09-01 10:25 | NURSING ---
REQUEST FAXED TO [facility] FOR MRI AND CT OF THE BRAIN AND EEG RESULTS FROM 07/[address] TODD REQUEST.
--- NOTE | 2019-09-01 11:19 | REHABEVAL_ITS ---
Admission Information Primary Diagnosis:: post stroke cognitive dysfunction, physical debility due to recent extensive surgery and also to severe protein calorie malnutrition with a 26 lb wt loss in the past 6 weeks. Status Changes from Prescreening?: Medical - cognitive dysfunction due to recent L MCA infarct Actual Problem List:: Bleeding, Skin Intergrity, Pain, ALteration in Cmfrt, Cognitve Impr/Memory Loss, Alteration in Nutrition, Mobility Impaired, Self Care Deficit, BP, Hypotension, Fluid Overload r/t CHF - on lasix but no evidence CHF at present. BP borderline low with an MAP of 68. Lasix held., Alteration- Leisure Activ. Potential Problem List:: DVT, Bleeding, Infection, UTI, Aspiration, Falls, Skin Integrity, Depression Risk of Complications DVT: JUAN CARLOS Olvera, - - eparin 5,000 SC Q 12H Bleeding: Monitor Lab Values, Nursing to Teach Precautions for anti-coagulation therapy., Wound, if applicable, to be assessed every shift., Stroke patients assessed for lethargy or change in status. Infection: Clinical Staff to Monitor for S/S of infection:, S/S of infection include fever, redness, warmth, etc. Urinary Tract Infection: Monitor for frequency, burning, discomfort, or incontinence., Nursing will obtain urine sample for urinalysis and C&S when ordered. Aspiration: Clinical staff will monitor for coughing, drooling, congestion., Speech will evaluate swallowing and dsyphasia., Nursing will monitor patient swallowing during meals. Falls: Patient will be evaluated for Fall Precautions, Patient will be placed on Fall Precautions as indicated per protocol. Skin Breakdown: Nursing will assess skin daily using assessment tool., Nursing will place on Skin Breakdown Precautions as indicated. Pain: Clinical staff will assess patient's pain level per protocol., Medications will be given, if needed, and the pain level reassessed., Other methods: Massage, distraction, decrease stimulus, etc. used PRN. Plan of Care Patient requires physician specializing in physical medicine and rehab oversight to provide close medical supervision of rehab issues including: Pain Management, Sleep Problems, Bowel and Bladder, Medical and co-morbidity Management, DVT prophylaxis, Rehabilitation Leadership, Coordination of treatment team Patient needs Physical Therapy: For a minimum of 1 hour, At least 5 out of 7 days Patient needs Physical Therapy to improve:: Mobility, Mobility, Mobility, Strengthening, Transfers, Stretching, ROM, Endurance, Stairs, Gait, Balance Patient needs Occupational Therapy: For a minimum of 1 hour, At least 5 out of 7 days Patient needs Occupational Therapy to improve ADL's incl.: Eating, Grooming, Bathing, Dressing, Toileting, Toilet transfers, Community Reintegration, Higher functioning activities, Household tasks, Adaptive Equipment, Splinting, Other activities as determined Patient requires speech therapy: For a minimum of 1 hour, At least 5 out of 7 days Patient requires speech therapy for: Swallowing, Cognition, Language Skills, Compensatory Strategies Patient requires 24/ Rehabilitation Nursing for: Pain Issues, Identifying and preventing risk factors, Monitoring and reporting current medical conditions, Assisting with ambulation, transfer, and all ADL's, Teaching patients about di sease process and medications, Family teaching, Providing safe environment, Bowel and Bladder Issues, Skin integrity, Medication Management Patient needs Application Support Engineer/ Case Management for: Discharge Planning, Arranging Home Equipment or Services, Family Interventions Patient needs Dietary and Nutrition Services for: Adequate Nutrition, Nutrition al Supplements, Nutritional Education Goals Patient will remain: free from falls, or injury at time of discharge. Patient will perform bed mobility at: MOD I level of assist. Patient will complete transfers from bed to chair at: MOD I level of assist. Patient will ambulate: 100 feet, with MOD I assist, with LRD Patient will complete upper body dressing at: MOD I level of assist. Patient will complete lower body dressing at: MOD I level of assist. Patient will complete toileting at: MOD I level of assist. Patient will perform bathing at: MOD I level of assist. Patient will complete grooming at: MOD I level of assist. Patient will complete home management skills at: MOD I level of assist. Patient will achieve: 12 stairs, at MOD I assist Patient will have pain level of: of 3 or less Patient's skin will: remain intact, free from infection. Patient will receive: adequate nutrition. Discharge Planning Pt Prognosis for Sig. Practical Improv. w/in Reasonable Time: Good Estimated Length of stay (days): 10 Anticipated D/C Destination: Home
--- NOTE | 2019-09-01 14:00 | CASEMGMT ---
Social Work Reviewed and agreed with social work international student advisor documentation on this date. Melody Ramirez, PLASTIC BOAT PATCHER COMPUTER OPERATIONS MANAGER
[2019-09-01] MEDS: Mirtazapine 15 MG Tablet PO (20:44)
[2019-09-01] MEDS: Metoprolol(XL)Succ 25 MG Tablet PO (20:45)
[2019-09-01] MEDS: Senna/Docusate Sodium 1 Tablet 2 TABLET PO (20:46)
[2019-09-01] MEDS: Tamsulosin HCl 0.4 MG Capsule PO (20:47)
--- NOTE | 2019-09-02 02:41 | NURSING ---
Pt set off alarm and found toileting in vacant room next to pt's room. Pt stated he wanted to get a shower now. Pt reminded by staff that pt had a shower before bed. Pt asked what Therapy was going to entail for the day? Pt reoriented to time of day and that staff will help pt with a.m. ADLs after 0500.
--- NOTE | 2019-09-02 03:18 | NURSING ---
Pt used PA to call for staff to assist with shower. Pt awake and needing reminded of shower earlier and that it was time to sleep. Pt told what time staff would assist with a.m. ADLs. Pt had pajama bottoms removed in bed. Staff covered pt up again and asked if there were any further needs. Pt repeated query of when staff would return to assist with morning routine.
[2019-09-02 05:56] LABS: Absolute Lymphocyte Count 0.61 X10^3/uL (0.83-4.51); Basophil# 0.04 X10^3/uL; Basophil% 0.4 % (0-1); Eosinophil# 0.47 X10^3/uL; Eosinophils% 4.2 % (0-5); Hematocrit 32.2 % (40-54); Hemoglobin 10.4 g/dL (13.0-16.5); Lymphocyte # 0.61 X10^3/ul (4.0); Lymphocyte % 5.4 % (19-41); Mean Corp Hgb Conc 32.3 g/dL (32-36); Mean Corpuscular Hgb 29.7 pg (27.0-32.0); Monocyte# 1.08 X10^3/uL; Monocyte% 9.6 % (0-10); NRBC Flagged by Analyzer 0 % (0-5); Neutrophil # 8.98 X10^3/uL (2.7-7.7); Neutrophil % 79.8 % (47-70); Platelet Count 595 K/mm3 (150-450); RBC Distribution Width CV 14.6 % (11.6-14.6); RBC Distribution Width SD 48.5 fl (35.1-43.9); White Blood Count 11.3 K/mm3 (4.4-11.0)
[2019-09-02 06:16] LABS: ALB/GLOB Ratio 0.7 RATIO (0.9-2.4); AST(SGOT) 85 U/L (15-37); Alanine Aminotransfer ALT/SGPT 241 U/L (16-61); Albumin, Serum 2.8 g/dL (3.2-5.0); Alkaline Phosphatase 123 U/L (45-117); Anion Gap 8 (5-15); BUN 22 mg/dL (7-18); BUN/Creat Ratio 22.6 RATIO (10-20); Calcium,Total 8.7 mg/dL (8.5-10.1); Chloride 106 mmol/L (98-107); Creatinine, Serum 0.97 mg/dL (0.70-1.30); EST Glomerular Filtration Rate 79 mL/min (>60); Est Glom Filt Rate - Afr Amer 96 mL/min (>60); Estimated Creatinine Clearance 55.66 ml/min; Globulin 3.9 g/dL (2.2-4.2); Glucose 99 mg/dL (74-106); Magnesium 2.3 mg/dL (1.6-2.6); Phosphorus 3.3 mg/dL (2.5-4.9); Potassium 4.4 mmol/L (3.5-5.1); Protein, Total 6.7 g/dL (6.4-8.2); Sodium Level 137 mmol/L (136-145)
[2019-09-02 07:40] VITALS: O2SAT 98
[2019-09-02] MEDS: Multivitamins,Therapeutic Tablet 1 TABLET PO (08:11)
[2019-09-02] MEDS: Senna/Docusate Sodium 1 Tablet 2 TABLET PO (08:11)
[2019-09-02] MEDS: Clopidogrel Bisulfate 75 MG Tablet PO (08:11)
[2019-09-02] MEDS: Furosemide 20 MG Tablet PO (08:11)
[2019-09-02] MEDS: Aspirin 81 MG TAB.CHEW PO (08:11)
[2019-09-02] MEDS: Heparin Injection (Vial) 5,000 UNIT/ML VIAL 5000 UNIT SC ×2 (08:12→20:04)
[2019-09-02] MEDS: Lidocaine 5% Patch 1 PATCH TOPICAL (08:12)
[2019-09-02 09:10] VITALS: BP 101/64; PULSE 84; RESP 16; TEMP 36.7; O2SAT 95
[2019-09-02 09:48] VITALS: RESP 16; O2SAT 95
--- NOTE | 2019-09-02 11:40 | EKG12_ITS ---
Test Reason : ADMISSION Blood Pressure : / mmHG Vent. Rate : 081 BPM Atrial Rate : 081 BPM P-R Int : 170 ms QRS Dur : 094 ms QT Int : 396 ms P-R-T Axes : 075 060 067 degrees QTc Int : 460 ms Normal sinus rhythm [id number] Nonspecific T wave abnormality Prolonged QT Abnormal ECG Confirmed by LON JORGE, DAMIEN ([id number]), material expeditor CHINA HESS ([id number]) on 09/09/2019 1:44:52 PM Referred By: Pamela Storey Confirmed By:DAMIEN FORREST MD
--- NOTE | 2019-09-02 13:10 | PCM.PN.BLA ---
Progress Note Afebrile Vital signs are stable but the blood pressure is on the low side. MAP is still greater than 65. Became agitated and very confused last night. He slept very little. The nurses wee in his room frequently. He is appropriate today. He is c/o being tired. He denies dizziness, lightheadedness, chest pain, shortness of breath, dysuria, nausea/vomiting, abdominal pain. Alert, oriented to person. Cannot tell me his age. He did tell me the year and the month. Lungs-clear to auscultation after a few deep breaths Heart-regular rate and rhythm, no gallop, no rub Abdomen-soft, nontender, nondistended, normal bowel sounds No peripheral edema No calf tenderness Impressions 1. sundowning/delirium - residual from recent hospital admission at [facility] Seroquel 25 mg QHS. Continue other current medications and therapy. STROKE Vital Signs/Narrative: Vital Signs Resp Pulse Ox 09/02/19 09:48 16 95 Code Visit Inpatient E&M: 22237 Subs Hosp L1
[2019-09-02 17:00] VITALS: BMI 18.4
[2019-09-02 20:00] VITALS: BP 100/68; PULSE 93; RESP 16; TEMP 36.4; O2SAT 97
[2019-09-02] MEDS: Tamsulosin HCl 0.4 MG Capsule PO (20:03)
[2019-09-02 20:04] VITALS: PULSE 93
[2019-09-02] MEDS: QUEtiapine 25 MG Tablet PO (20:04)
[2019-09-02] MEDS: Mirtazapine 15 MG Tablet PO (20:04)
[2019-09-02] MEDS: Metoprolol(XL)Succ 25 MG Tablet PO (20:04)
[2019-09-03 02:10] VITALS: BMI 18.4
[2019-09-03 06:31] LABS: Anion Gap 8 (5-15); BUN 24 mg/dL (7-18); BUN/Creat Ratio 21.6 RATIO (10-20); Calcium,Total 8.7 mg/dL (8.5-10.1); Chloride 104 mmol/L (98-107); Creatinine, Serum 1.11 mg/dL (0.70-1.30); EST Glomerular Filtration Rate 68 mL/min (>60); Est Glom Filt Rate - Afr Amer 83 mL/min (>60); Estimated Creatinine Clearance 48.16 ml/min; Glucose 110 mg/dL (74-106); Potassium 4.4 mmol/L (3.5-5.1); Sodium Level 135 mmol/L (136-145)
[2019-09-03 07:53] VITALS: BP 93/64; PULSE 83; RESP 16; TEMP 36.6; O2SAT 95
[2019-09-03 08:05] VITALS: O2SAT 95
[2019-09-03] MEDS: Furosemide 20 MG Tablet PO (08:07)
[2019-09-03] MEDS: Heparin Injection (Vial) 5,000 UNIT/ML VIAL 5000 UNIT SC ×2 (08:07→22:39)
[2019-09-03] MEDS: Senna/Docusate Sodium 1 Tablet 2 TABLET PO (08:07)
[2019-09-03] MEDS: Multivitamins,Therapeutic Tablet 1 TABLET PO (08:07)
[2019-09-03] MEDS: Lidocaine 5% Patch 1 PATCH TOPICAL (08:07)
[2019-09-03] MEDS: Clopidogrel Bisulfate 75 MG Tablet PO (08:07)
[2019-09-03] MEDS: Aspirin 81 MG TAB.CHEW PO (08:10)
--- NOTE | 2019-09-03 10:44 | CASEMGMT ---
Social Work IDT met with pt, son, dtr-in law and granddtr for team meeting. PT is SBA-CGA for transfers, walking 150ft with FWW- CGA but fatigues easily. Pt is SBA for all ADLs while seated, but needs cues for safety. ST to work on memory, impulsivity and safety concerns. Encouraging hydration. Pt not sleeping well or eating well. Pt having some delirium and sundowning. Physician started pt on Remeron for depression, appetite and sleep. Pt taking Seroquel, dtr-in law not comfortable with pt taking Seroquel, physician educated pt and pt family to use of medication and side effects. Shanta Benavides, social work technology development intern Melody Ramirez, NUCLEAR MEDICINE OFFICER ROBOTICS ENGINEER
--- NOTE | 2019-09-03 11:39 | PN_ITS ---
Progress Note Patient was seen on team rounds this morning and his son, yjasxygm-qi-oft and granddaughter were present. Afebile VSS - BP's are on the low side but, the MAP has ranged form 67-80 since admission to the rehab unit Maintaining appropriate oxygen saturation on RA - 95-97% today Oral intake is poor. Family is bringing in food from Home and he was started on Remeron. He only took 240 cc PO yesterday. Lasix has been discontinued. Last BM was yesterday. Discussed with nursing - no problems that need addressed. Nursing reports that he slept well last night with the initiation of Seroquel 25 mg for Delirium. Reviewed the PT/OT/ST notes - ST had concern about how he was functioning at home prior to all the recent events. She was very independent. Continues to work at the [employer]. Manages his own finances. He is occasionally forgetful but he shree with this by writing himself notes. Medication list reviewed. Lasix DC'd. All lab was personally reviewed. Sodium is low at 135 today and the potassium is 4.4. His BUN has increased to 24 and his creatinine is 1.11, up from 0.97 at admission. EKG reviewed and he has NSR with a RBBB pattern. The QTc is prolonged at 490. Normal axis. He tells me he slept well last night and he feels much more rested today. He denies SOB, CP, lightheadedness. PHYSICAL EXAM: GENERAL: alert, oriented X 3, Cooperative, NAD, lying almost falt in bed with no respiratory difficulty ORAL: dry mucosa, no mucosal lesions NECK: No JVD, supple, trachea midline LUNGS: CTA, symmetric chest expansion, no coarse crackles today HEART: RRR, Normal S1 and S2, no rub, no gallop, still with a MM at the LLSB - flow MM suspected ABDOMEN: soft, NT, ND, BS present, no guarding with palpation EXTREMITIES: no edema, no cyanosis, no calf tenderness SKIN: No rashes, no breakdown NEUROLOGIC: no focal neurologic deficits....he does have cognitive dysfunction and has generalized weakness requiring a FWW to ambulate safely PSYCH: appropriate, normal affect, pleasant Impressions 1. 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 Borderline hypotension with negative orthostatics. Will DC the metoprolol XL and start Lopressor 12.5 mg BID....hold if the systolic is < 100 3. Severe protein calorie malnutrition-he is being provided supplements by the dietitian and family will bring in food for him 4. Sundowning/delirium - will DC the Seroquel at the family's request but also because he has a prolonged QTc - will get the last EKG from [facility] to see what his QTc was at DC DC the Seroquel because of the prolonged Qtc. He is not on any other drugs that prolong the Qtc and the K is > 4 and the MAG is > 2. Will request a copy of the last EKG he had at [facility] to see what the QTc was at that time. Continue the Remeron....it does not prolong the QT Family states they will stay at night if that is what it takes to have the pt sleep without Seroquel. STROKE Vital Signs/Narrative: Vital Signs Temp Pulse Resp BP Pulse Ox 09/03/19 08:05 95 09/03/19 07:53 97.9 F 83 16 93/64 95 Code Visit Inpatient E&M: 19903 Subs Hosp L1
[2019-09-03 14:38] VITALS: BMI 18.4
[2019-09-03 19:30] VITALS: BP 97/72; PULSE 97; RESP 16; TEMP 36.5; O2SAT 93
[2019-09-03] MEDS: Mirtazapine 15 MG Tablet PO (22:35)
[2019-09-03] MEDS: Tamsulosin HCl 0.4 MG Capsule PO (22:38)
[2019-09-03 22:41] VITALS: BP 102/57; PULSE 94
[2019-09-03] MEDS: Metoprolol Tartrate 25 MG Tablet 12.5 MG PO (22:41)
[2019-09-03 22:50] VITALS: BMI 18.4
[2019-09-04 06:35] LABS: Anion Gap 6 (5-15); BUN 23 mg/dL (7-18); BUN/Creat Ratio 20.7 RATIO (10-20); Calcium,Total 8.5 mg/dL (8.5-10.1); Chloride 104 mmol/L (98-107); Creatinine, Serum 1.11 mg/dL (0.70-1.30); EST Glomerular Filtration Rate 68 mL/min (>60); Est Glom Filt Rate - Afr Amer 83 mL/min (>60); Estimated Creatinine Clearance 47.14 ml/min; Glucose 99 mg/dL (74-106); Magnesium 2.2 mg/dL (1.6-2.6); Potassium 4.1 mmol/L (3.5-5.1); Sodium Level 135 mmol/L (136-145)
[2019-09-04 07:00] VITALS: BP 103/64; PULSE 87; RESP 18; TEMP 36.6; O2SAT 95
[2019-09-04 09:08] VITALS: BP 99/69; PULSE 98; RESP 18; O2SAT 96
[2019-09-04] MEDS: Clopidogrel Bisulfate 75 MG Tablet PO (09:16)
[2019-09-04] MEDS: Heparin Injection (Vial) 5,000 UNIT/ML VIAL 5000 UNIT SC ×2 (09:16→20:26)
[2019-09-04] MEDS: Aspirin 81 MG TAB.CHEW PO (09:16)
[2019-09-04] MEDS: Multivitamins,Therapeutic Tablet 1 TABLET PO (09:16)
[2019-09-04] MEDS: Lidocaine 5% Patch 1 PATCH TOPICAL (09:16)
[2019-09-04 09:17] VITALS: BP 99/69; PULSE 98
--- NOTE | 2019-09-04 15:15 | PCM.PN.BLA ---
Progress Note Afebrile The blood pressure today has ranged from 99/69 to 103/64. No significant change with discontinuation of metoprolol XL 25 mg p.o. daily and initiation of 12.5 mg of short acting Lopressor twice daily. The a.m. dose of Lopressor was held this morning due to systolic less than 100. All lab was personally reviewed. Sodium is stable at 135. The BUN is 23 and the creatinine is 1.11 today. Creatinine is stable. Magnesium is 2.2. Weight today is 132 pounds and 0.91 ounces, up from 131 pounds and 13.38 ounces on 09/03/2019. I suspect the I&O are not accurate - it says that the oral intake for 09/03 was only 120 cc He slept well last night but, he is confused.....thinks he is going home today. Alert and oriented to person and the year, NAD, appropriate, cooperative PERRL, EOMI MM are dry and the tongue is coated The neck is supple and the trachea is midline, there are no cervical nodes Lungs are clear to auscultation after a few deep breaths Heart has a RRR with no gallop and no rub. Abdomen is soft, NT, ND and there are normal bowel sounds heard in all quadrants. there was no guarding with palpation CN's II - XII are grossly intact, non-focal neuro exam. No peripheral edema, no calf tenderness Skin is warm and dry, no rashes, no breakdown. Mood is pleasant Impressions 1. debility due to L MCA stroke with cognitive dysfunction and also to generalized weakness and decreased physical endurance due to recent AVR and CABG with prolonged hospital admission 2. acute confusional state/delirium - off Seroquel now. No sign infection. 3. thrush -start nystatin swish and swallow confusion and safety awareness will be his 2 obstacles to going home. If the confusion continues may need to consider Seroquel again. Would need to discuss with the family. He had mild QT prolongation with Seroquel. Abilify is also a second generation antipsychotic and it is not known to cause QT prolongation. Code Visit Inpatient E&M: 84137 Subs Hosp L2
[2019-09-04] MEDS: NYSTATIN 500,000 UNIT/5 ML UDC 500000 UNIT PO ×3 (15:39→20:24)
[2019-09-04 16:01] VITALS: BMI 18.4
[2019-09-04 19:30] VITALS: BP 102/68; PULSE 100; RESP 20; TEMP 36.6; O2SAT 95
[2019-09-04 20:24] VITALS: BP 102/68; PULSE 100
[2019-09-04] MEDS: Metoprolol Tartrate 25 MG Tablet 12.5 MG PO (20:24)
[2019-09-04] MEDS: Mirtazapine 15 MG Tablet PO (20:26)
[2019-09-04] MEDS: Tamsulosin HCl 0.4 MG Capsule PO (20:26)
[2019-09-05 05:00] VITALS: BMI 18.4
[2019-09-05] MEDS: Multivitamins,Therapeutic Tablet 1 TABLET PO (08:06)
[2019-09-05] MEDS: Aspirin 81 MG TAB.CHEW PO (08:06)
[2019-09-05] MEDS: Heparin Injection (Vial) 5,000 UNIT/ML VIAL 5000 UNIT SC ×2 (08:08→20:32)
[2019-09-05] MEDS: Lidocaine 5% Patch 1 PATCH TOPICAL (08:09)
[2019-09-05 08:10] VITALS: BP 95/60; PULSE 84
[2019-09-05] MEDS: Clopidogrel Bisulfate 75 MG Tablet PO (08:11)
[2019-09-05] MEDS: NYSTATIN 500,000 UNIT/5 ML UDC 500000 UNIT PO ×4 (08:11→20:30)
[2019-09-05 08:48] VITALS: BP 95/60; PULSE 84; RESP 16; TEMP 36.3; O2SAT 94
[2019-09-05 12:08] VITALS: BMI 18.4
--- NOTE | 2019-09-05 13:04 | PCM.PN.HOSP ---
Patient Problems: Active and Suspected Problems (Last Reviewed 09/01/19 @ 10:[address] Pamela Storey DO) S/P CABG x 3 (Acute) 08/18/19 at [facility] THAKKAR to LAD, SVG to OM1, SVG to PDA History of aortic valve replacement with bioprosthetic valve (Acute) 08/19/2019 at [facility] with a JAMIN clip. Perimount prosthetic aortic valve (size #23) Mediastinal hematoma (Acute) Taken to surgery 08/19/2019 at [facility] for evacuation of mediastinal hematoma due to hemorrhagic shock and hemothorax Presbycusis of both ears (Acute) History of prostate cancer (Acute) Reason for Visit: Physical debility Subjective: Patient is a 79-year-old gentleman with multiple comorbidities who underwent triple-vessel CABG, bioprosthetic aortic valve replacement, left atrial appendage clip on 08/18/2019 at [facility]. Postprocedure. Complicated by bilateral pneumothorax requiring chest tubes, mediastinal hematoma causing hemorrhagic shock with subsequent evacuation and left MCA ischemic CVA. Patient was stabilized and transferred to the inpatient rehab unit at the [facility] Nursing staff reports episodes of delirium during the evening family however declined a trial of Seroquel. Objective: GENERAL: cooperative HEENT: Atraumatic; EYES; Anicteric, Normal Conjunctiva NECK; supple, normal thyroid, RESPIRATORY: Diminished to auscultation CARDIOVASCULAR: Regular S1 S2, GI: soft, normoactive bowel sounds, : No Renal angle tenderness; EXTREMITIES: No edema, no clubbing, MUSCULOSKELETAL:muscle waisting NEURO: Awake; no lateralizing signs. SKIN: No Rash PSYCH; Flat affect Vitals/I&O's: Vital Signs Temp Pulse Resp BP Pulse Ox 97.4 F L 84 16 95/60 94 09/05/19 08:48 09/05/19 08:48 09/05/19 08:48 09/05/19 08:48 09/05/19 08:48 Oxygen Delivery Method Room Air Weight: 59.421 kg Body Mass Index (BMI) 18.4 Finger Stick Blood Glucose 98 Orthostatic Vital Signs Start: 09/01/19 08:53 Freq: Status: Active Protocol: Activity Type Activity Date Activity User E-Sign Co-Sign Detail Recorded Client Recorded Date Recorded By Document 09/01/19 08:53 [facility] [id number] 09/01/19 08:54 [facility] 09/01/19 08:53 Orthostatic Vitals Standing -Blood Pressure (90/60-120/80) 96/68 -Extremity Use Left Arm -Pulse Rate (60-100) 99 Sitting -Blood Pressure (90/60-120/80) 91/66 -Extremity Use Left Arm -Pulse Rate (60-100) 86 Lying -Blood Pressure (90/60-120/80) 87/60 L -Extremity Use Left Arm -Pulse Rate (60-100) 80 Intake and Output for Last 24 Hours 09/03/19 09/04/19 09/05/19 23:59 23:59 23:59 Intake Total 120 / 120 240 / 240 800 / 800 Balance 120 / 120 240 / 240 800 / 800 Current Medications Acetaminophen (Tylenol) 325 - 650 mg PO Q8H PRN PRN PRN Reason: Pain Score 1-10/10 or Fever Aspirin (Aspirin, Baby) 81 mg PO DAILY@0800 [facility] Last Admin: 09/05/19 08:06 Dose: 81 mg Documented by: Bisacodyl (Dulcolax) 10 mg RECTAL .PRN X 1 PRN PRN Reason: Constipation Clopidogrel Bisulfate (Plavix) 75 mg PO DAILY [facility] Last Admin: 09/05/19 08:11 Dose: 75 mg Documented by: Heparin Sodium (Porcine) (Heparin Na) 5,000 unit SC BID [facility] Last Admin: 09/05/19 08:08 Dose: 5,000 unit Documented by: Lidocaine (Lidoderm Patch) 1 patch TOPICAL DAILY [facility] Last Admin: 09/05/19 08:09 Dose: 1 patch Documented by: Magnesium Hydroxide (Milk Of Magnesia) 30 ml PO .PRN X 1 PRN PRN Reason: Constipation Metoprolol Tartrate (Lopressor (Beta Kingsley)) 12.5 mg PO BID [facility] Last Admin: 09/05/19 08:10 Dose: Not Given Documented by: Mirtazapine (Remeron) 15 mg PO 1999 [facility] Last Admin: 09/04/19 20:26 Dose: 15 mg Documented by: Multivitamins (Multivitamin) 1 tablet PO DAILY@0800 [facility] Last Admin: 09/05/19 08:06 Dose: 1 tablet Documented by: Nystatin (Nystatin) 500,000 unit PO 4X/DAY [facility] Last Admin: 09/05/19 08:11 Dose: 500,000 unit Documented by: Senna/Docusate Sodium (Senokot-S, Rosie-Colace) 2 tablet PO BID [facility] Last Admin: 09/05/19 08:11 Dose: Not Given Documented by: Tamsulosin HCl (Flomax) 0.4 mg PO 2200 [facility] Last Admin: 09/04/19 20:26 Dose: 0.4 mg Documented by: Medical Necessity - Tobacco Use Smoking Status: Former smoker Tobacco Use: Cigarettes Assessment/Plan All Active Problems (Last Reviewed 09/01/19 @ 10:[address] Pamela Storey, DO) Paroxysmal atrial fibrillation (Resolved) S/P CABG x 3 (Acute) Urine retention (Resolved) History of aortic valve replacement with bioprosthetic valve (Acute) Mediastinal hematoma (Acute) Presbycusis of both ears (Acute) Hemothorax, left (Resolved) Pneumothorax, right (Resolved) History of prostate cancer (Acute) Aortic stenosis, severe (Acute) Pre-syncope (Resolved) Patient is a 79-year-old gentleman with multiple comorbidities who underwent triple-vessel CABG, bioprosthetic aortic valve replacement, left atrial appendage clip on 08/18/2019 at [facility]. Postprocedure. Complicated by bilateral pneumothorax requiring chest tubes, mediastinal hematoma causing hemorrhagic shock with subsequent evacuation and left MCA ischemic CVA. Patient was stabilized and transferred to the inpatient rehab unit at the [facility] 1. Physical debility ?Due to recent complicated hospital stay. Underwent triple-vessel CABG, bioprosthetic aortic valve replacement, left atrial appendage clip on 08/18/2019 at [facility]. Postprocedure. Complicated by bilateral pneumothorax requiring chest tubes, mediastinal hematoma causing hemorrhagic shock with subsequent evacuation and left MCA ischemic CVA 3. Coronary artery disease ?Status post triple-vessel CABG at [facility] on 08/18/2019 3. Valvular heart disease ?With recent bioprosthetic aortic valve replacement at [facility] on 08/18/2019 4. Left MCA ischemic CVA ?With residual debility, admitted to the inpatient rehab unit currently undergoing therapy 5. Hypertension ~ blood pressure controlled, home medications continued with dose adjustment as needed 6. BPH ?Patient is on tamsulosin did continue 7. DVT prophylaxis ?Patient is on heparin 5000 units SC twice daily 8. Severe protein calorie malnutrition ?As evidenced by low BMI hyperlipidemia as well as decreased energy level. Dietary following Code Visit Inpatient E&M: 76962 Subs Hosp L2
--- NOTE | 2019-09-05 14:31 | NURSING ---
This customs entry writer spoke with patient earlier today and encouraged patient to participate in therapy and the importance of therapy. I did inform patient that PT will complete therapy off the unit so patient could get a change of scenery, patient continued to refuse. Again, this customs entry writer educated the patient on importance of therapy to transition home safely. Patient continues with refusal.
[2019-09-05 19:16] VITALS: BP 121/87; PULSE 98; RESP 16; TEMP 36.4; O2SAT 97
[2019-09-05] MEDS: Mirtazapine 15 MG Tablet PO (19:34)
[2019-09-05 20:33] VITALS: BP 122/71; PULSE 83
[2019-09-05] MEDS: Tamsulosin HCl 0.4 MG Capsule PO (20:33)
[2019-09-05] MEDS: Metoprolol Tartrate 25 MG Tablet 12.5 MG PO (20:33)
[2019-09-05 20:41] VITALS: BMI 18.4
[2019-09-06] MEDS: Multivitamins,Therapeutic Tablet 1 TABLET PO (07:47)
[2019-09-06] MEDS: Clopidogrel Bisulfate 75 MG Tablet PO (07:47)
[2019-09-06] MEDS: Heparin Injection (Vial) 5,000 UNIT/ML VIAL 5000 UNIT SC ×2 (07:47→20:31)
[2019-09-06] MEDS: NYSTATIN 500,000 UNIT/5 ML UDC 500000 UNIT PO ×4 (07:47→20:54)
[2019-09-06] MEDS: Aspirin 81 MG TAB.CHEW PO (07:47)
[2019-09-06] MEDS: Lidocaine 5% Patch 1 PATCH TOPICAL (07:48)
[2019-09-06 07:49] VITALS: BP 94/66; PULSE 86
[2019-09-06] MEDS: Senna/Docusate Sodium 1 Tablet 2 TABLET PO (07:50)
[2019-09-06 08:04] VITALS: BP 94/66; PULSE 86; RESP 18; TEMP 36.8; O2SAT 95
[2019-09-06 14:17] VITALS: BMI 18.4
[2019-09-06 19:13] VITALS: BP 105/75; PULSE 83; RESP 18; TEMP 36.6; O2SAT 96
[2019-09-06 20:30] VITALS: BMI 18.4
[2019-09-06] MEDS: Tamsulosin HCl 0.4 MG Capsule PO (20:30)
[2019-09-06] MEDS: Mirtazapine 15 MG Tablet PO (20:30)
[2019-09-06 20:35] VITALS: PULSE 91; RESP 18; O2SAT 96
[2019-09-06 20:43] VITALS: BP 109/73; PULSE 91
[2019-09-06] MEDS: Metoprolol Tartrate 25 MG Tablet 12.5 MG PO (20:43)
--- NOTE | 2019-09-06 23:51 | NURSING ---
pt up per self and bed alarm going off. staff intercepted pt from going out the door;pt was looking for a flashlight to find parts that his daughters lost. staff was able to convince pt to return to bed and try and get some sleep. pt did so with out difficulty. pt had been up earlier t the br and and was looking for daughter when he came out of the bathroom. pt reoriented and was compliant with staff. staff offered hs care and pt refused stating that he would do it in the morning .
--- NOTE | 2019-09-07 02:53 | NURSING ---
Pt awake and states that he wants to gather his things so he is ready to go home. Pt has TV on at this time and unable to sleep, even though it is 03:00. Pt denies needs or pain. Staff reassures pt and encourages pt to try and get some sleep but pt continues to talk about his son. Pt states his son will probably take pt to a psychiatrist. Staff will continue to monitor pt.
--- NOTE | 2019-09-07 03:18 | NURSING ---
Reviewed and agree with PLATFORM MILL SUPERVISOR documentation and charting.
[2019-09-07 06:13] LABS: Hemoglobin 10.1 g/dL (13.0-16.5); Mean Corp Hgb Conc 31.6 g/dL (32-36); Mean Corpuscular Hgb 28.7 pg (27.0-32.0); Mean Corpuscular Volume 90.9 fL (80-94); Mean Platelet Vol. 9.4 fl (6.2-12.0); Platelet Count 606 K/mm3 (150-450); RBC Distribution Width CV 14.4 % (11.6-14.6); Red Blood Count 3.52 M/mm3 (4.6-6.2); White Blood Count 9.6 K/mm3 (4.4-11.0)
[2019-09-07 06:38] LABS: Anion Gap 7 (5-15); BUN 19 mg/dL (7-18); BUN/Creat Ratio 17.8 RATIO (10-20); Calcium,Total 8.4 mg/dL (8.5-10.1); Chloride 105 mmol/L (98-107); Creatinine, Serum 1.07 mg/dL (0.70-1.30); EST Glomerular Filtration Rate 71 mL/min (>60); Est Glom Filt Rate - Afr Amer 86 mL/min (>60); Estimated Creatinine Clearance 48.74 ml/min; Glucose 154 mg/dL (74-106); Magnesium 2.3 mg/dL (1.6-2.6); Potassium 4.2 mmol/L (3.5-5.1); Sodium Level 136 mmol/L (136-145)
[2019-09-07] MEDS: Heparin Injection (Vial) 5,000 UNIT/ML VIAL 5000 UNIT SC ×2 (08:15→20:45)
[2019-09-07] MEDS: Multivitamins,Therapeutic Tablet 1 TABLET PO (08:15)
[2019-09-07] MEDS: Aspirin 81 MG TAB.CHEW PO (08:15)
[2019-09-07] MEDS: Lidocaine 5% Patch 1 PATCH TOPICAL (08:15)
[2019-09-07] MEDS: NYSTATIN 500,000 UNIT/5 ML UDC 500000 UNIT PO ×4 (08:17→20:45)
[2019-09-07] MEDS: Clopidogrel Bisulfate 75 MG Tablet PO (08:17)
[2019-09-07 08:22] VITALS: BP 90/50; PULSE 90
[2019-09-07 08:26] VITALS: BP 90/50; PULSE 90; RESP 18; TEMP 36.6; O2SAT 94
--- NOTE | 2019-09-07 10:05 | EKGRS_ITS ---
Test Reason : QT INT Blood Pressure : / mmHG Vent. Rate : 087 BPM Atrial Rate : 087 BPM P-R Int : 154 ms QRS Dur : 094 ms QT Int : 408 ms P-R-T Axes : 041 049 055 degrees QTc Int : 490 ms Normal sinus rhythm [id number] Prolonged QT Abnormal ECG Confirmed by LON JORGE, DAMIEN ([id number]), editor managing director CHINA HESS ([id number]) on 09/09/2019 1:45:24 PM Referred By: Pamela Storey Confirmed By:DAMIEN FORREST MD
[2019-09-07 11:27] LABS: Erythrocyte Sedimentation Rate 45 mm/hr (0-20)
[2019-09-07 11:39] LABS: Ferritin 379 ng/mL (26-388); Iron 27 ug/dL (65-175); Iron Binding Capacity,Total 156 ug/dL (250-450); PERCENT IRON SATURATION 17.3 % (15.0-55.0)
[2019-09-07 11:50] LABS: Hemoglobin A1c 5.2 % (4.2-6.3)
--- NOTE | 2019-09-07 12:35 | PCM.PN.BLA ---
Progress Note Afebile VSS - he is only able to take the Lopressor once daily at . BP in the AM is too low.......90/50 today with a MAP of 63. Maintaining appropriate oxygen saturation on RA Oral intake is improving. He is drinking more water and is better hydrated. Food intake is still poor. Family is bringing food from home and he does eat some of this. Discussed with nursing - He is not sleeping well. He was up at 1 AM looking for a screwdriver and up at 3 AM looking for mandarin oranges. He is confused during the day. Reviewed the PT/OT/ST notes - he has problems with safety awareness and also with cognitive function. In ST opinion he should have 24 hour supervision at MD. Medication list reviewed. All lab was personally reviewed. Hemoglobin is stable at 10.1. White blood cell count is normal at 9.6. Platelets are elevated at 606,000, up from 595,000 on 09/02/2019. Sed rate is elevated at 45. BMP shows a potassium of 4.2 and a BUN of 19 with a creatinine of 1.07. Fasting blood sugar is 154 but hemoglobin A1c is 52. Calcium corrected for hypoalbuminemia is within normal limits. Serum iron is low at 27 and the TIBC is low at 156. The ferritin is 379. He denies chest pain, shortness of breath, orthopnea, palpitations, lightheadedness. He told the nurse he is on a diet. Poor appetite but, weight is stable. Alert and oriented X 3, NAD, cooperative. He is lying nearly flat in bed with no respiratory distress or tachypnea. PERRL, EOMI MM are dry and the tongue is coated with yellow/brown adherent stuff The neck is supple and the trachea is midline, there are no cervical nodes Lungs are clear to auscultation Heart has a RRR with no gallop and no rub. No murmur appreciated Abdomen is soft, NT, ND and there are normal bowel sounds heard in all quadrants. There was no guarding with palpation CN's II - XII are grossly intact and he has 5/5 strength throughout. No neurologic deficit except for cognitive dysfunction No peripheral edema, no calf tenderness Skin is warm and dry, no rashes, no breakdown. Mood is intermittently agitated but he is calm talking to me today and he is pleasant. He asked if he was going home today and I reminded him that he promised me he would stay 1 more week if I let him go home at the end of the week. I also reminded him that he will have a TEAM meeting on and his family would be present and we would make plans for DC at that time. Impressions 1. Post stroke debility with cognitive dysfunction and generalized weakness. Good strength now but still with decreased endurance. 2. Borderline hypotension with negative orthostatics. Continue the Lopressor 12.5 mg at HS...Am dose is consistently held due to sys < 100. 3. Severe protein calorie malnutrition-he is being provided supplements by the dietitian and family will bring in food for him. Weight is stable. 4. owning/delirium - D/W son Shekhar who spoke with the rest of the family and they are agreeable to restarting the Seroquel at HS. EKG today shows a normal QT but, a mildly prolonged Tc at 460. No ectopy and no acute ST or T wave changes. Will restart 25 mg of Seroquel Q HS and obtain a EKG Q AM x 3. 5. Depression- may be contributing to the confusion. Continue the Remeron at HS 6. QTc prolongation with a normal QT. K is > 4 and the Mag is > 2. EKG daily X 3 while he is initiating Seroquel again. Continue therapy Code Visit Inpatient E&M: 24475 Subs Hosp L2
[2019-09-07 12:56] LABS: Mucous, Urine 0 SEEN /hpf (<or=2+); Red Blood Cells-Urine 0 SEEN /hpf (0-5); Squamous Epithelial Cells - UA 0 SEEN /hpf (0-5); White Blood Cells 0 SEEN /hpf (0-5)
[2019-09-07 12:58] LABS: Color, Urine Yellow (Yellow); Glucose, Dipstick Normal (Normal); Ketone-Dipstick Negative (Negative); Leukocyte Esterase-Dipstick 25 /ul (Negative); Nitrite-Dipstick Negative (Negative); Occult Blood-Urine Negative /ul (Negative); Protein-Dipstick 15 mg/dl (Negative); Urine Bilirubin Dipstick Negative (Negative); Urine Clarity Sl. Cloudy (Clear); Urine Urobilinogen 8 mg/dl (Normal)
[2019-09-07 13:15] LABS: Bacteria RARE /hpf (None Seen)
[2019-09-07 14:16] VITALS: BMI 18.4
[2019-09-07] MEDS: QUEtiapine 25 MG Tablet PO (20:10)
[2019-09-07] MEDS: Mirtazapine 15 MG Tablet PO (20:10)
[2019-09-07 20:21] VITALS: BP 96/59; PULSE 102; RESP 18; TEMP 36.7; O2SAT 96
[2019-09-07 20:45] VITALS: PULSE 97; RESP 18; O2SAT 96; BMI 18.4
[2019-09-07] MEDS: Tamsulosin HCl 0.4 MG Capsule PO (20:45)
[2019-09-07 20:55] VITALS: BP 96/67; PULSE 96
--- NOTE | 2019-09-08 05:55 | EKG12_ITS ---
Test Reason : AM EKG Blood Pressure : / mmHG Vent. Rate : 092 BPM Atrial Rate : 092 BPM P-R Int : 168 ms QRS Dur : 096 ms QT Int : 368 ms P-R-T Axes : 064 -23 036 degrees QTc Int : 455 ms Normal sinus rhythm Possible Left atrial enlargement RSR' or QR pattern in V1 suggests right ventricular conduction delay Borderline ECG When compared with ECG of 07-SEP-2019 11:27, MANUAL COMPARISON REQUIRED, DATA IS UNCONFIRMED Confirmed by KEVIN JORGE, SHARDA ([id number]), medical editor MARIE BILLINGSLEY ([id number] on 09/14/2019 3:59:11 PM Referred By: Pamela Storey Confirmed By:SHARDA BROWN MD
[2019-09-08 07:00] VITALS: BP 100/70; PULSE 90; RESP 18; TEMP 36.6; O2SAT 96
[2019-09-08] MEDS: NYSTATIN 500,000 UNIT/5 ML UDC 500000 UNIT PO ×4 (07:55→20:41)
[2019-09-08] MEDS: Aspirin 81 MG TAB.CHEW PO (07:55)
[2019-09-08] MEDS: Clopidogrel Bisulfate 75 MG Tablet PO (07:55)
[2019-09-08] MEDS: Multivitamins,Therapeutic Tablet 1 TABLET PO (07:55)
[2019-09-08] MEDS: Lidocaine 5% Patch 1 PATCH TOPICAL (07:55)
[2019-09-08] MEDS: Heparin Injection (Vial) 5,000 UNIT/ML VIAL 5000 UNIT SC ×2 (07:56→20:41)
[2019-09-08 08:01] VITALS: BP 98/56; PULSE 80
[2019-09-08 13:42] VITALS: BMI 18.4
--- NOTE | 2019-09-08 16:53 | CASEMGMT ---
Social Work Received Medicare days - 9 days with DC 3/4. Spoke with patient and daughter, Vilma, to explain Medicare days and discuss DC plans. PT and dtr agreeable to pt DC home 3/4 and go to Cardiology appt. Dtr stated family will assist with pt completing therapy home exercises and no HHC or outpatient needs or DME needs at this time. Educated to contact PCP if that changes. Dtr appreciative of RU care for pt. Plan: DC home alone with family support 3/. No therapy or DME needs. Melody Ramirez, SHEET METAL ASSEMBLER RADIATION SAFETY OFFICER
[2019-09-08 18:54] VITALS: BP 105/74; PULSE 93; RESP 17; TEMP 36.7; O2SAT 94
[2019-09-08 20:40] VITALS: BP 105/74; PULSE 93; RESP 17; O2SAT 94; BMI 18.4
[2019-09-08] MEDS: Senna/Docusate Sodium 1 Tablet 2 TABLET PO (20:40)
[2019-09-08] MEDS: Metoprolol Tartrate 25 MG Tablet 12.5 MG PO (20:40)
[2019-09-08] MEDS: Tamsulosin HCl 0.4 MG Capsule PO (20:41)
[2019-09-08] MEDS: Mirtazapine 15 MG Tablet PO (20:41)
[2019-09-08] MEDS: QUEtiapine 25 MG Tablet PO (20:41)
--- NOTE | 2019-09-09 03:15 | NURSING ---
Rebekah from [facility] notified that we were unable to locate the EKG from 09/08/2019. Rebekah called back in a few minutes after locating the EKG and sending a copy for pt doctors appt. EKG was added to pt folder for pt appt 09/08.
--- NOTE | 2019-09-09 03:21 | NURSING ---
Pt set off alarm. Staff reacted and found pt sitting at edge of bed with legs on the floor. Alarm had been turned off by pt. Pt stated that he hates to bother staff. Staff reassured pt that we are here to ensure pt safety and it is never a bother. Staff assisted pt to and from toilet. Staff repositioned alarm to the furthest position away from pt. Alarm is activated and bed is in lowest position.
--- NOTE | 2019-09-09 04:49 | NURSING ---
Reviewed and agree with PRODUCTION CLOTH CUTTER and documentation and charting.
--- NOTE | 2019-09-09 05:55 | EKG12_ITS ---
Test Reason : AM Blood Pressure : / mmHG Vent. Rate : 089 BPM Atrial Rate : 089 BPM P-R Int : 164 ms QRS Dur : 096 ms QT Int : 398 ms P-R-T Axes : 065 022 042 degrees QTc Int : 484 ms Normal sinus rhythm Prolonged QT Abnormal ECG When compared with ECG of 08-SEP-2019 05:25, MANUAL COMPARISON REQUIRED, DATA IS UNCONFIRMED Confirmed by KEVIN JORGE, SHARDA ([id number]), restaurant expeditor MARIE BILLINGSLEY ([id number] on 09/14/2019 3:58:24 PM Referred By: Pamela Storey Confirmed By:SHARDA BROWN MD
--- NOTE | 2019-09-09 08:15 | DCINST_ITS ---
- Discharge Diagnoses Current Active Problems: Current Active and Chronic Problems (Last Reviewed 09/01/19 @ 10:[address] Pamela Storey, DO) H/O ischemic left MCA stroke (Chronic) 07/22/19 Hyperlipidemia (Chronic) History of rheumatic fever (Chronic) Tobacco dependence in remission (Chronic) Quit smoking in 1989 S/P CABG x 3 (Acute) 08/18/19 at [facility] to LAD, SVG to OM1, SVG to PDA History of aortic valve replacement with bioprosthetic valve (Acute) 08/19/2019 at [facility] with a JAMIN clip. Perimount prosthetic aortic valve (size #23) Mediastinal hematoma (Acute) Taken to surgery 08/19/2019 at [facility] for evacuation of mediastinal hematoma due to hemorrhagic shock and hemothorax Presbycusis of both ears (Acute) Severe protein-calorie malnutrition (Chronic) Left ventricular hypertrophy (Chronic) History of prostate cancer (Acute) You will use the following diet at home:: Regular - Regular diet until he starts to gain weight again and when appetite is stable start low fat Your food should be the consistency of: Regular Your liquids should be the consistency of: Regular/Thin Discharge Activity: May Not Drive - No driving for 6 weeks from the date of the surgery. Do NOT ride in the front seat of a car with air bags for 6 weeks after the surgery. No strenuous exercise until approved by the design quality engineer., May Shower Weight Bearing Status: Full weight bearing Lifting Restrictions: 10 lbs Call your doctor if your incision/area has: Continuous Slow Oozing, Sudden Increased Bleeding, Increased Pain/ Swelling, Increased Redness, Foul Smelling Discharge, Swelling at the incision site Call your doctor if you observe: Fever of 101 or Higher, Inability to urinate, Inability to have a bowel movement, Shortness of breath, Dizziness, Fainting spells, Swelling in the ankles, Chest pain, Increased palpitations (irregular heartbeat), Calf discomfort, Uncontrolled pain, - Additional Instructions: 1. Weigh yourself first thing in the morning every day and keep a record. If the weight increases by > 3 lbs in 24 hours call the design quality engineer. If the weight increases by more than 5 lbs in 1 week call the design quality engineer for instructions and cut back on salt. 2. You have been started on an Anti-depressant called Remeron(Mirtazepine). This helps to stimulate appetite. It also helps to make you sleepy so you will take it every night. The anti-depressant efffect does not really reach it's full effect for a month. You have been through a lot the past 2 months and it is going to take a while to completely heal. Generally once you are placed on a antidepressant you should plan on taking it 3-6 months and if at that time you are doing well the dose can be tapered off. 3. You had some problems with confusion/delirium after surgery and while you were in rehab. I think this will be better at home. You were on a medication called Seroquel while in the rehab unit and this helped with the confusion at night and you slept better. Your were also better able to do the therapy and you were less irritable. If you continue to have problems at home I suggest you talk to your PCP. You may need to increase the Remeron or start Seroquel 25 mg at 8 PM nightly until things straighten out. 4. The Metoprolol you were on when you left the [facility] has been changed. Your blood pressures were too low and the dose was decreased. You have been taking 12.5 mg at bedtime only. When you take this medication twice a day the blood pressures are too low and we have even had to hold the night time dose a few times due to a low blood pressure. Please discuss this with your design quality engineer. We also stopped the diuretic because of the low blood pressure. Your lungs are clear and you have no swelling in the ankles so I do not think you need a diuretic at this time. 5. It was a pleasure to meet you Abelardo and I hope that you will continue to do well. I think things will start to get better once you are back in your own house and back on your routine. Remember to pace your self. No lifiting over 10 lbs and no [address] yet. Remeber to continue the exercises and your endurance will improve. Should you ever need our services again in the future we would be hhappy to care for your again. Pending Tests on Discharge: none Allergies/Adverse Reactions: Allergies No Known Allergies Allergy (Verified 12/19/13 16:39) Medications to take at Discharge Tamsulosin HCl [Flomax] 0.4 mg PO DAILY 12/19/13 Acetaminophen [Tylenol] 325 mg PO Q8H PRN PRN 08/31/19 Aspirin [Aspirin, Baby] 81 mg PO DAILY@0800 08/31/19 Heparin Sodium,Porcine/Pf [Heparin 5 Unit/5 ml (1/ml) Syr] 5,000 units SQ BID 08/31/19 Lidocaine [Salonpas] 1 patch TOPICAL DAILY 08/31/19 Multivitamin,Therapeutic [Thera] 1 tab PO DAILY 08/31/19 Clopidogrel Bisulfate [Plavix] 75 mg PO DAILY #30 tab 09/09/19 Metoprolol Tartrate [Lopressor (beta luisa)] 12.5 mg PO QHS #30 tab 09/09/19 Mirtazapine [Remeron] 15 mg PO 2000 #30 tab 09/09/19 Nystatin 500,000 unit PO 4X/DAY #200 ml 09/09/19 The following prescriptions were given: Metoprolol Tartrate [Lopressor (beta luisa)] 12.5 mg PO QHS #30 tab Prescription Printed Nystatin 500,000 unit PO 4X/DAY #200 ml Prescription Printed Clopidogrel Bisulfate [Plavix] 75 mg PO DAILY #30 tab Prescription Printed Mirtazapine [Remeron] 15 mg PO 2000 #30 tab Prescription Printed Primary Care Physician: Memo Richards MD [Primary Care Provider] - Test Results: Test results from this visit will be discussed in further detail at your follow- up appointment, if applicable. Please Follow Up With: Dr. Memo Richards When: Saturday Please Follow Up With: [facility] When: 09/09/19 and 10/06/19 Proposed Discharge Date: 09/09/19
[2019-09-09 08:18] VITALS: BP 93/63; PULSE 94; RESP 16; TEMP 36.6; O2SAT 96
[2019-09-09] MEDS: Multivitamins,Therapeutic Tablet 1 TABLET PO (08:19)
[2019-09-09] MEDS: Aspirin 81 MG TAB.CHEW PO (08:19)
[2019-09-09] MEDS: Heparin Injection (Vial) 5,000 UNIT/ML VIAL 5000 UNIT SC (08:19)
[2019-09-09] MEDS: Clopidogrel Bisulfate 75 MG Tablet PO (08:20)
[2019-09-09] MEDS: Lidocaine 5% Patch 1 PATCH TOPICAL (08:20)
[2019-09-09] MEDS: NYSTATIN 500,000 UNIT/5 ML UDC 500000 UNIT PO (08:20)
--- NOTE | 2019-09-09 08:58 | PCM.DC.SUM ---
Discharge Date and Diagnosis - Problem List Patient Problems: Active and Suspected Problems (Last Reviewed 09/01/19 @ 10:[address] Pamela Storey DO) Thrombocytosis (Acute) Normochromic normocytic anemia (Acute) QT prolongation (Acute) Delirium due to another medical condition (Acute) Date of Admission: 08/31/19 Date of Discharge: 09/09/19 - Primary Discharge Diagnosis Active and Suspected Problems (Last Reviewed 09/01/19 @ 10:[address] Pamela Storey DO) Debility due to L MCA stroke(07/22/19) and generalized weakness following AV replacement and CABG X 3 on 08/18/19 at [facility] Thrombocytosis (Acute) Normochromic normocytic anemia (Acute) - stable QTc prolongation (Acute) Delirium due to another medical condition (Acute) Hyponatremia - resolved Severe protein calorie malnutrition Hypotension-resolved with decreasing metoprolol dosage and discontinuation of Lasix - Secondary Discharge Diagnosis Chronic Problems (Last Reviewed 09/01/19 @ 10:[address] Pamela Storey DO) H/O ischemic left MCA stroke (Chronic) 07/22/19 Hyperlipidemia (Chronic) History of rheumatic fever (Chronic) Tobacco dependence in remission (Chronic) Quit smoking in 1989 S/P CABG x 3 (Chronic) 08/18/19 at [facility] THAKKAR to LAD, SVG to OM1, SVG to PDA History of aortic valve replacement with bioprosthetic valve (Chronic) 08/19/2019 at [facility] with a JAMIN clip. Perimount prosthetic aortic valve (size #23) Presbycusis of both ears (Chronic) Severe protein-calorie malnutrition (Chronic) Left ventricular hypertrophy (Chronic) History of prostate cancer (Chronic) Multi-vessel coronary artery stenosis (Chronic) Preserved Left Ventricular systolic function with normal EDP. Andreafski Multivessel CAD (LM, LAD, RCA). Aortic Valve Stenosis- Severe. Surgery consult for coronary revascularization; Surgery consult for Valve Replacement surgery D/w Dr Cooney. Arrange tx to [facility]. 07/16/2019 per RADHA @[facility] History of left heart catheterization (Chronic 07/16/19) Preserved Left Ventricular systolic function with normal EDP. Andreafski Multivessel CAD (LM, LAD, RCA). Aortic Valve Stenosis- Severe. Surgery consult for coronary revascularization; Surgery consult for Valve Replacement surgery D/w Dr Cooney. Arrange tx to [facility]. 07/16/2019 per RADHA @[facility] Aortic stenosis, severe (Chronic) History of BPH (Chronic) History of hypertension (Chronic) Hospital Course and Treatment Imaging Results: Laboratory Tests 09/07/19 09/07/19 09/07/19 Range/Units 12:45 05:15 05:15 WBC (4.4-11.0) K/mm3 RBC (4.6-6.2) M/mm3 Hgb (13.0-16.5) g/dL Hct (40-54) % MCV (80-94) fL MCH (27.0-32.0) pg MCHC (32-36) g/dL RDW Std Deviation (35.1-43.9) fl RDW Coeff of Kirsten (11.6-14.6) % Plt Count (150-450) K/mm3 MPV (6.2-12.0) fl Immature Gran % (Auto) (0.0-0.9) % Neut % (Auto) (47-70) % Lymph % (Auto) (19-41) % Rutherford % (Auto) (0-10) % Eos % (Auto) (0-5) % Baso % (Auto) (0-1) % Absolute Neuts (auto) (2.0-7.7) X10^3/uL Absolute Lymphs (auto) (0.83-4.51) X10^3/uL Nucleated RBC % (0-5) % ESR 45 H (0-20) mm/hr Sodium (136-145) mmol/L Potassium (3.5-5.1) mmol/L Chloride (98-107) mmol/L Carbon Dioxide (21.0-32.0) mmol/L Anion Gap (5-15) BUN (7-18) mg/dL Creatinine (0.70-1.30) mg/dL Estim Creat Clear Calc ml/min Est GFR (MDRD) Af Amer (>60) mL/min Est GFR (MDRD) Non-Af (>60) mL/min BUN/Creatinine Ratio (10-20) RATIO Glucose (74-106) mg/dL Hemoglobin A1c (4.2-6.3) % Calcium (8.5-10.1) mg/dL Phosphorus (2.5-4.9) mg/dL Magnesium (1.6-2.6) mg/dL Iron 27 L (65-175) ug/dL TIBC 156 L (250-450) ug/dL Iron Saturation 17.3 (15.0-55.0) % Ferritin 379 (26-388) ng/mL Total Bilirubin (0.20-1.00) mg/dL AST (15-37) U/L ALT (16-61) U/L Alkaline Phosphatase (45-117) U/L Total Protein (6.4-8.2) g/dL Albumin (3.2-5.0) g/dL Globulin (2.2-4.2) g/dL Albumin/Globulin Ratio (0.9-2.4) RATIO Urine Color Yellow (Yellow) Urine Clarity Sl. Cloudy (Clear) Urine pH 5.0 (5.0 - 8.0) Ur Specific Dougherty 1.020 (1.002-1.030) Urine Protein 15 H (Negative) mg/dl Urine Glucose (UA) Normal (Normal) mg/dl Urine Ketones Negative (Negative) mg/dl Urine Occult Blood Negative (Negative) /ul Urine Nitrite Negative (Negative) Urine Bilirubin Negative (Negative) mg/dL Urine Urobilinogen 8 H (Normal) mg/dl Ur Leukocyte Esterase 25 H (Negative) /ul Urine RBC 0 SEEN (0-5) /hpf Urine WBC 0 SEEN (0-5) /hpf Ur Squamous Epith Cells 0 SEEN (0-5) /hpf Urine Bacteria RARE (None Seen) /hpf Urine Mucus 0 SEEN (<or=2+) /hpf 09/07/19 09/07/19 09/07/19 Range/Units 05:15 05:15 05:15 WBC 9.6 (4.4-11.0) K/mm3 RBC 3.52 L (4.6-6.2) M/mm3 Hgb 10.1 L (13.0-16.5) g/dL Hct 32.0 L (40-54) % MCV 90.9 (80-94) fL MCH 28.7 (27.0-32.0) pg MCHC 31.6 L (32-36) g/dL RDW Std Deviation 48.0 H (35.1-43.9) fl RDW Coeff of Kirsten 14.4 (11.6-14.6) % Plt Count 606 H (150-450) K/mm3 MPV 9.4 (6.2-12.0) fl Immature Gran % (Auto) (0.0-0.9) % Neut % (Auto) (47-70) % Lymph % (Auto) (19-41) % Rutherford % (Auto) (0-10) % Eos % (Auto) (0-5) % Baso % (Auto) (0-1) % Absolute Neuts (auto) (2.0-7.7) X10^3/uL Absolute Lymphs (auto) (0.83-4.51) X10^3/uL Nucleated RBC % (0-5) % ESR (0-20) mm/hr Sodium 136 (136-145) mmol/L Potassium 4.2 (3.5-5.1) mmol/L Chloride 105 (98-107) mmol/L Carbon Dioxide 24.0 (21.0-32.0) mmol/L Anion Gap 7 (5-15) BUN 19 H (7-18) mg/dL Creatinine 1.07 (0.70-1.30) mg/dL Estim Creat Clear Calc 48.74 ml/min Est GFR (MDRD) Af Amer 86 (>60) mL/min Est GFR (MDRD) Non-Af 71 (>60) mL/min BUN/Creatinine Ratio 17.8 (10-20) RATIO Glucose 154 H (74-106) mg/dL Hemoglobin A1c 5.2 (4.2-6.3) % Calcium 8.4 L (8.5-10.1) mg/dL Phosphorus (2.5-4.9) mg/dL Magnesium 2.3 (1.6-2.6) mg/dL Iron (65-175) ug/dL TIBC (250-450) ug/dL Iron Saturation (15.0-55.0) % Ferritin (26-388) ng/mL Total Bilirubin (0.20-1.00) mg/dL AST (15-37) U/L ALT (16-61) U/L Alkaline Phosphatase (45-117) U/L Total Protein (6.4-8.2) g/dL Albumin (3.2-5.0) g/dL Globulin (2.2-4.2) g/dL Albumin/Globulin Ratio (0.9-2.4) RATIO Urine Color (Yellow) Urine Clarity (Clear) Urine pH (5.0 - 8.0) Ur Specific Dougherty (1.002-1.030) Urine Protein (Negative) mg/dl Urine Glucose (UA) (Normal) mg/dl Urine Ketones (Negative) mg/dl Urine Occult Blood (Negative) /ul Urine Nitrite (Negative) Urine Bilirubin (Negative) mg/dL Urine Urobilinogen (Normal) mg/dl Ur Leukocyte Esterase (Negative) /ul Urine RBC (0-5) /hpf Urine WBC (0-5) /hpf Ur Squamous Epith Cells (0-5) /hpf Urine Bacteria (None Seen) /hpf Urine Mucus (<or=2+) /hpf 09/04/19 09/03/19 09/02/19 Range/Units 05:35 05:48 05:30 WBC (4.4-11.0) K/mm3 RBC (4.6-6.2) M/mm3 Hgb (13.0-16.5) g/dL Hct (40-54) % MCV (80-94) fL MCH (27.0-32.0) pg MCHC (32-36) g/dL RDW Std Deviation (35.1-43.9) fl RDW Coeff of Kirsten (11.6-14.6) % Plt Count (150-450) K/mm3 MPV (6.2-12.0) fl Immature Gran % (Auto) (0.0-0.9) % Neut % (Auto) (47-70) % Lymph % (Auto) (19-41) % Rutherford % (Auto) (0-10) % Eos % (Auto) (0-5) % Baso % (Auto) (0-1) % Absolute Neuts (auto) (2.0-7.7) X10^3/uL Absolute Lymphs (auto) (0.83-4.51) X10^3/uL Nucleated RBC % (0-5) % ESR (0-20) mm/hr Sodium 135 L 135 L 137 (136-145) mmol/L Potassium 4.1 4.4 4.4 (3.5-5.1) mmol/L Chloride 104 104 106 (98-107) mmol/L Carbon Dioxide 25.0 23.0 23.0 (21.0-32.0) mmol/L Anion Gap 6 8 8 (5-15) BUN 23 H 24 H 22 H (7-18) mg/dL Creatinine 1.11 1.11 0.97 (0.70-1.30) mg/dL Estim Creat Clear Calc 47.14 48.16 55.66 ml/min Est GFR (MDRD) Af Amer 83 83 96 (>60) mL/min Est GFR (MDRD) Non-Af 68 68 79 (>60) mL/min BUN/Creatinine Ratio 20.7 H 21.6 H 22.6 H (10-20) RATIO Glucose 99 110 H 99 (74-106) mg/dL Hemoglobin A1c (4.2-6.3) % Calcium 8.5 8.7 8.7 (8.5-10.1) mg/dL Phosphorus 3.3 (2.5-4.9) mg/dL Magnesium 2.2 2.3 (1.6-2.6) mg/dL Iron (65-175) ug/dL TIBC (250-450) ug/dL Iron Saturation (15.0-55.0) % Ferritin (26-388) ng/mL Total Bilirubin 1.00 (0.20-1.00) mg/dL AST 85 H (15-37) U/L ALT 241 H (16-61) U/L Alkaline Phosphatase 123 H (45-117) U/L Total Protein 6.7 (6.4-8.2) g/dL Albumin 2.8 L (3.2-5.0) g/dL Globulin 3.9 (2.2-4.2) g/dL Albumin/Globulin Ratio 0.7 L (0.9-2.4) RATIO Urine Color (Yellow) Urine Clarity (Clear) Urine pH (5.0 - 8.0) Ur Specific Dougherty (1.002-1.030) Urine Protein (Negative) mg/dl Urine Glucose (UA) (Normal) mg/dl Urine Ketones (Negative) mg/dl Urine Occult Blood (Negative) /ul Urine Nitrite (Negative) Urine Bilirubin (Negative) mg/dL Urine Urobilinogen (Normal) mg/dl Ur Leukocyte Esterase (Negative) /ul Urine RBC (0-5) /hpf Urine WBC (0-5) /hpf Ur Squamous Epith Cells (0-5) /hpf Urine Bacteria (None Seen) /hpf Urine Mucus (<or=2+) /hpf 09/02/19 Range/Units 05:30 WBC 11.3 H (4.4-11.0) K/mm3 RBC 3.50 L (4.6-6.2) M/mm3 Hgb 10.4 L (13.0-16.5) g/dL Hct 32.2 L (40-54) % MCV 92.0 (80-94) fL MCH 29.7 (27.0-32.0) pg MCHC 32.3 (32-36) g/dL RDW Std Deviation 48.5 H (35.1-43.9) fl RDW Coeff of Kirsten 14.6 (11.6-14.6) % Plt Count 595 H (150-450) K/mm3 MPV 9.0 (6.2-12.0) fl Immature Gran % (Auto) 0.600 (0.0-0.9) % Neut % (Auto) 79.8 H (47-70) % Lymph % (Auto) 5.4 L (19-41) % Rutherford % (Auto) 9.6 (0-10) % Eos % (Auto) 4.2 (0-5) % Baso % (Auto) 0.4 (0-1) % Absolute Neuts (auto) 9.0 H (2.0-7.7) X10^3/uL Absolute Lymphs (auto) 0.61 L (0.83-4.51) X10^3/uL Nucleated RBC % 0 (0-5) % ESR (0-20) mm/hr Sodium (136-145) mmol/L Potassium (3.5-5.1) mmol/L Chloride (98-107) mmol/L Carbon Dioxide (21.0-32.0) mmol/L Anion Gap (5-15) BUN (7-18) mg/dL Creatinine (0.70-1.30) mg/dL Estim Creat Clear Calc ml/min Est GFR (MDRD) Af Amer (>60) mL/min Est GFR (MDRD) Non-Af (>60) mL/min BUN/Creatinine Ratio (10-20) RATIO Glucose (74-106) mg/dL Hemoglobin A1c (4.2-6.3) % Calcium (8.5-10.1) mg/dL Phosphorus (2.5-4.9) mg/dL Magnesium (1.6-2.6) mg/dL Iron (65-175) ug/dL TIBC (250-450) ug/dL Iron Saturation (15.0-55.0) % Ferritin (26-388) ng/mL Total Bilirubin (0.20-1.00) mg/dL AST (15-37) U/L ALT (16-61) U/L Alkaline Phosphatase (45-117) U/L Total Protein (6.4-8.2) g/dL Albumin (3.2-5.0) g/dL Globulin (2.2-4.2) g/dL Albumin/Globulin Ratio (0.9-2.4) RATIO Urine Color (Yellow) Urine Clarity (Clear) Urine pH (5.0 - 8.0) Ur Specific Dougherty (1.002-1.030) Urine Protein (Negative) mg/dl Urine Glucose (UA) (Normal) mg/dl Urine Ketones (Negative) mg/dl Urine Occult Blood (Negative) /ul Urine Nitrite (Negative) Urine Bilirubin (Negative) mg/dL Urine Urobilinogen (Normal) mg/dl Ur Leukocyte Esterase (Negative) /ul Urine RBC (0-5) /hpf Urine WBC (0-5) /hpf Ur Squamous Epith Cells (0-5) /hpf Urine Bacteria (None Seen) /hpf Urine Mucus (<or=2+) /hpf Microbiology 09/07/19 12:45 Urine Catheter - Catheter Urine Culture - Final Culture exhibits no growth. none Operations: None Procedures: EKG Summary of Care Provided: The pt is a 79-year-old male with a PMH of hypertension, hyperlipidemia, multivessel coronary artery disease, severe aortic stenosis, BPH with history of urine retention, CABG x3 at [facility] on 08/18/2019, bioprosthetic aortic valve replacement at [facility] on 08/18/2019, left atrial appendage clip on 08/18/2019, left MCA ischemic CVA on 1/15/20, bilateral presbycusis with hearing aids, severe protein calorie malnutrition, recent left hemothorax and right pneumothorax requiring chest tubes and evacuation of a mediastinal hematoma causing hemorrhagic shock on 08/19/2019 at [facility] admitted to the Inpatient rehab unit at [facility] on 08/31/2019 for debility secondary to recent CABG, aortic valve replacement, left atrial appendage clip and recent L MCA ischemic CVA for greater than 3 hours of therapy daily with a goal of returning home at or near his prior level of independence. The patient lives at home by himself but his son lives on the same lot behind Abelardo's house and another one of his children lives about a block and a half away. He still works as a printer and works the farm. Abelardo was independent with ADL's, mobility and driving prior to hospitalization. He did not require any AD's. Lab drawn at admission to the rehab unit showed a hemoglobin of 10.4 with normochromic normocytic indices. Platelets were 595,000 and the white blood cell count was 11.3 with 79% neutrophils. Potassium was 4.4, BUN/creatinine was 22/0.97, AST was 85, ALT was 241 and the alkaline phosphatase was 123. Total bilirubin was within normal limits. Amiodarone at [facility] was discontinued due to increased LFT's. The magnesium was 2.3. Repeat CBC prior to discharge showed the hemoglobin to be stable at 10.1 and the platelets remained elevated at 606,000. White blood cell count was normal. Potassium was 4.2 prior to discharge and the magnesium was 2.3. Iron studies were not consistent with iron deficiency. The fasting blood sugar was elevated at 154 and a hemoglobin A1c was checked and was 5.2. UA prior to discharge showed no pyuria and the urine culture was negative. His appetite has been very poor and his weight dropped from 134 pounds and 11 ounces on 09/02/19 to 131 pounds and 9 ounces at discharge. His weight is stabilized over the past week. Family has been bringing in food for him. He was started on Remeron for depression and to help stimulate his appetite. His appetite has been picking up but what he has a taste for is salted nuts and candy/sweets. He had delirium while in the rehab unit and his family confirmed he had this at [facility] as well. He was started on Seroquel 25 mg at with good results. He slept through the night and was rested in the AM. He was better able to do 3 hours of therapy daily and he was less irritable and confused. Vital signs on the day of discharge were temperature 97.9, pulse rate 94, respiratory rate 16, blood pressure 93/63 and his pulse ox was 96% on room air. He denied lightheadedness, chest pain, shortness of breath and palpitations. On the day prior to DC he was ambulating without an AD for up to 300 feet before fatiguing. He is still having difficulty with cognitive function and should continue with ST post DC. He was discharged on 09/09/19 and will follow up with Dr. Lawler at [facility] later in the day. He will follow up with his PCP Dr. Memo Richards next Mon (09/14/19). Alert and oriented X 2 (person and place), NAD, appropriate, cooperative PERRL, EOMI MM are moist and there are no mucosal lesions The neck is supple and the trachea is midline, there are no cervical nodes Lungs are Clear to auscultation Heart has a RRR with no gallop, no murmur and no rub. Abdomen is soft, NT, ND and there are normal bowel sounds heard in all quadrants. There was no guarding with palpation CN's II - XII are grossly intact. He has 5/5 strength throughout. No peripheral edema, no calf tenderness Skin is warm and dry, no rashes, no breakdown. Mood is flat/depressed. Patient was tearful when we said goodbye. He is very glad to be going home. This note was generated with P21 dictation software. It may contain incorrect words, spelling, and punctuation that were not noted in checking the note before signing. Patient Problems: Active and Suspected Problems (Last Reviewed 09/01/19 @ 10:[address] Pamela Storey, ) Thrombocytosis (Acute) Normochromic normocytic anemia (Acute) QT prolongation (Acute) Delirium due to another medical condition (Acute) - Physical Exam Vitals/I&O's: Vital Signs Temp Pulse Resp BP Pulse Ox 97.9 F 94 16 93/63 96 09/09/19 08:18 09/09/19 08:18 09/09/19 08:18 09/09/19 08:18 09/09/19 08:18 Oxygen Delivery Method Room Air Weight: 131 lb 9.855 oz Body Mass Index (BMI) 18.4 Finger Stick Blood Glucose 98 Orthostatic Vital Signs Start: 09/01/19 08:53 Freq: Status: Active Protocol: Activity Type Activity Date Activity User E-Sign Co-Sign Detail Recorded Client Recorded Date Recorded By Document 09/01/19 08:53 KAY [id number] 09/01/19 08:54 KAY 09/01/19 08:53 Orthostatic Vitals Standing -Blood Pressure (90/60-120/80 mm Hg) 96/68 -Extremity Use Left Arm -Pulse Rate (60-100 beats/min) 99 Sitting -Blood Pressure (90/60-120/80 mm Hg) 91/66 -Extremity Use Left Arm -Pulse Rate (60-100 beats/min) 86 Lying -Blood Pressure (90/60-120/80 mm Hg) 87/60 L -Extremity Use Left Arm -Pulse Rate (60-100 beats/min) 80 Intake and Output for Last 24 Hours 09/07/19 09/08/19 09/09/19 23:59 23:59 23:59 Intake Total 840 / 840 820 / 820 440 / 440 Output Total 1100 / 1100 900 / 900 650 / 650 Balance -260 / -260 -80 / -80 -210 / -210 Microbiology Past 72 Hours 09/07/19 12:45 Urine Catheter - Catheter Urine Culture - Final Culture exhibits no growth. Current Medications Acetaminophen (Tylenol) 325 - 650 mg PO Q8H PRN PRN PRN Reason: Pain Score 1-10/10 or Fever Aspirin (Aspirin, Baby) 81 mg PO DAILY@0800 [facility] Last Admin: 09/09/19 08:19 Dose: 81 mg Documented by: Bisacodyl (Dulcolax) 10 mg RECTAL .PRN X 1 PRN PRN Reason: Constipation Clopidogrel Bisulfate (Plavix) 75 mg PO DAILY [facility] Last Admin: 09/09/19 08:20 Dose: 75 mg Documented by: Heparin Sodium (Porcine) (Heparin Na) 5,000 unit SC BID [facility] Last Admin: 09/09/19 08:19 Dose: 5,000 unit Documented by: Lidocaine (Lidoderm Patch) 1 patch TOPICAL DAILY [facility] Last Admin: 09/09/19 08:20 Dose: 1 patch Documented by: Magnesium Hydroxide (Milk Of Magnesia) 30 ml PO .PRN X 1 PRN PRN Reason: Constipation Metoprolol Tartrate (Lopressor (Beta Kingsley)) 12.5 mg PO BID [facility] Last Admin: 09/09/19 08:18 Dose: Not Given Documented by: Mirtazapine (Remeron) 15 mg PO 1999 [facility] Last Admin: 09/08/19 20:41 Dose: 15 mg Documented by: Multivitamins (Multivitamin) 1 tablet PO DAILY@0800 [facility] Last Admin: 09/09/19 08:19 Dose: 1 tablet Documented by: Nystatin (Nystatin) 500,000 unit PO 4X/DAY [facility] Last Admin: 09/09/19 08:20 Dose: 500,000 unit Documented by: Quetiapine Fumarate (Seroquel) 25 mg PO QPM@1999 [facility] Last Admin: 09/08/19 20:41 Dose: 25 mg Documented by: Senna/Docusate Sodium (Senokot-S, Rosie-Colace) 2 tablet PO BID [facility] Last Admin: 09/09/19 08:20 Dose: Not Given Documented by: Tamsulosin HCl (Flomax) 0.4 mg PO 2200 [facility] Last Admin: 09/08/19 20:41 Dose: 0.4 mg Documented by: Discharge Activity: May Not Drive - No driving for 6 weeks from the date of the surgery. Do NOT ride in the front seat of a car with air bags for 6 weeks after the surgery. No strenuous exercise until approved by the over the horizon targeting supervisor., May Shower Weight Bearing Status: Full weight bearing Call your doctor if your incision/area has: Continuous Slow Oozing, Sudden Increased Bleeding, Increased Pain/ Swelling, Increased Redness, Foul Smelling Discharge, Swelling at the incision site Call your doctor if you observe: Fever of 101 or Higher, Inability to urinate, Inability to have a bowel movement, Shortness of breath, Dizziness, Fainting spells, Swelling in the ankles, Chest pain, Increased palpitations (irregular heartbeat), Calf discomfort, Uncontrolled pain, - Home Medications: Medications to take at Discharge Tamsulosin HCl [Flomax] 0.4 mg PO DAILY 12/19/13 Acetaminophen [Tylenol] 325 mg PO Q8H PRN PRN 08/31/19 Aspirin [Aspirin, Baby] 81 mg PO DAILY@0800 08/31/19 Heparin Sodium,Porcine/Pf [Heparin 5 Unit/5 ml (1/ml) Syr] 5,000 units SQ BID 08/31/19 Lidocaine [Salonpas] 1 patch TOPICAL DAILY 08/31/19 Multivitamin,Therapeutic [Thera] 1 tab PO DAILY 08/31/19 Clopidogrel Bisulfate [Plavix] 75 mg PO DAILY #30 tab 09/09/19 Metoprolol Tartrate [Lopressor (beta kingsley)] 12.5 mg PO QHS #30 tab 09/09/19 Mirtazapine [Remeron] 15 mg PO 2000 #30 tab 09/09/19 Nystatin 500,000 unit PO 4X/DAY #200 ml 09/09/19 Following Prescrptions Were Given to Patient: Metoprolol Tartrate [Lopressor (beta kingsley)] 12.5 mg PO QHS #30 tab Prescription Printed Nystatin 500,000 unit PO 4X/DAY #200 ml Prescription Printed Clopidogrel Bisulfate [Plavix] 75 mg PO DAILY #30 tab Prescription Printed Mirtazapine [Remeron] 15 mg PO 2000 #30 tab Prescription Printed Primary Care Physician: Memo Richards MD [Primary Care Provider] - Please Follow Up With: Dr. Memo Richards When: Saturday Please Follow Up With: [facility]iology When: 09/09/19 and 10/06/19 Disposition: Home Minutes spent on discharge:: 45 Patient Condition:: Good Medical Necessity - Tobacco Use Smoking Status: Former smoker - quit in 1989 Tobacco Use: Cigarettes Meaningful Use Info Meaningful Use Diagnoses (Choose all that apply): Ischemic CVA - CVA Therapy Assessed for PT,OT and/or ST?: Yes - Ischemic Stroke Antithrombotic order at d/c?: Yes Dx of Atrial fib/flutter?: No Anticoagulant at discharge?: No Reason anticoagulant not ordered: Treatment not Indicated Statins at discharge?: No Reason Statin not ordered: Drug Intolerance - pt with increased LFT's Primary Dx Acute Ischemic CVA?: Yes IV tPA ordered during stay?: No Reason IV t-PA not ordered: Treatment not Indicated - pt had the stroke prior to admission to the rehab unit Code Visit Inpatient E&M: 48842 Disch Hosp
[2019-09-09 10:26] VITALS: BMI 18.4
[2019-09-09 11:52] VITALS: BP 93/63; PULSE 94; RESP 16; TEMP 36.6; O2SAT 96
[2019-09-09 11:53] VITALS: BMI 18.4
--- NOTE | 2019-09-09 11:54 | NURSING ---
Discharged home with family. Discharge instructions, medications and appointments reviewed with pt and family. Denies questions or concerns
== END 2019-09-09 11:45 | disposition home or self-care (01) | DRG 949 ==
PROVIDERS: Admitting Provider Internal Medicine; PCP Family Medicine; Referring Provider Internal Medicine; Visit Provider Internal Medicine
DX: Z48.812 Encounter for surgical aftercare following surgery on the circulatory system (principal); E43 Unspecified severe protein-calorie malnutrition; Z68.1 Body mass index [BMI] 19.9 or less, adult; F05 Delirium due to known physiological condition; I69.398 Other sequelae of cerebral infarction; S27.89 Injury of other specified intrathoracic organs; Z95.3 Presence of xenogenic heart valve; I25.10 Atherosclerotic heart disease of native coronary artery without angina pectoris; E78.5 Hyperlipidemia, unspecified; N40.0 Benign prostatic hyperplasia without lower urinary tract symptoms; I50.9 Heart failure, unspecified; I11.0 Hypertensive heart disease with heart failure; X58.XXXD Exposure to other specified factors, subsequent encounter; Z95.1 Presence of aortocoronary bypass graft; Z87.891 Personal history of nicotine dependence; Z85.46 Personal history of malignant neoplasm of prostate; D64.9 Anemia, unspecified; F32.9 Major depressive disorder, single episode, unspecified
CPT/HCPCS: 36415; 80048; 80053; 81001; 82728; 83036; 83540; 83550; 83735; 84100; 85025; 85027; 85652; 87086; 92507; 92523; 93005; 97110; 97116; 97162; 97166; 97530; 97535; 97802; 97803; 99251; G0463

== ENCOUNTER → 2019-10-10 08:18 | Outpatient (CLI) | payer MEDICARE, BC, SELFPAY ==
[2019-10-10 08:25] LABS: Bacteria 0 SEEN /hpf (None Seen); Red Blood Cells-Urine 0 SEEN /hpf (0-5); White Blood Cells 0 SEEN /hpf (0-5)
[2019-10-10 09:20] LABS: Absolute Lymphocyte Count 0.65 X10^3/uL (0.83-4.51); Absolute Neutrophil Count 6.2 X10^3/uL (2.0-7.7); Basophil# 0.05 X10^3/uL; Basophil% 0.6 % (0-1); Eosinophil# 0.25 X10^3/uL; Eosinophils% 3.2 % (0-5); Hematocrit 42.2 % (40-54); Lymphocyte # 0.65 X10^3/ul (4.0); Lymphocyte % 8.4 % (19-41); Mean Corp Hgb Conc 30.8 g/dL (32-36); Mean Corpuscular Hgb 27.5 pg (27.0-32.0); Mean Corpuscular Volume 89.4 fL (80-94); Mean Platelet Vol. 9.9 fl (6.2-12.0); Monocyte# 0.57 X10^3/uL; Monocyte% 7.3 % (0-10); NRBC Flagged by Analyzer 0 % (0-5); Neutrophil # 6.24 X10^3/uL (2.7-7.7); Neutrophil % 80.2 % (47-70); Platelet Count 388 K/mm3 (150-450); RBC Distribution Width CV 13.5 % (11.6-14.6); RBC Distribution Width SD 44.2 fl (35.1-43.9); Red Blood Count 4.72 M/mm3 (4.6-6.2); White Blood Count 7.8 K/mm3 (4.4-11.0)
[2019-10-10 09:22] LABS: Color, Urine Yellow (Yellow); Glucose, Dipstick Normal (Normal); Ketone-Dipstick Negative (Negative); Leukocyte Esterase-Dipstick Negative /ul (Negative); Nitrite-Dipstick Negative (Negative); Occult Blood-Urine Negative /ul (Negative); Protein-Dipstick 15 mg/dl (Negative); Urine Clarity Clear (Clear); Urine Urobilinogen 1 mg/dl (Normal)
[2019-10-10 09:33] LABS: Urine Bilirubin Dipstick 1 mg/dL (Negative)
[2019-10-10 09:35] LABS: Mucous, Urine 1+ /hpf (<or=2+); Squamous Epithelial Cells - UA 0-5 SEEN /hpf (0-5)
[2019-10-10 10:03] LABS: ALB/GLOB Ratio 0.7 RATIO (0.9-2.4); AST(SGOT) 18 U/L (15-37); Alanine Aminotransfer ALT/SGPT 18 U/L (16-61); Albumin, Serum 3.4 g/dL (3.2-5.0); Alkaline Phosphatase 110 U/L (45-117); Anion Gap 4 (5-15); BUN 17 mg/dL (7-18); BUN/Creat Ratio 13.2 RATIO (10-20); Calcium,Total 9.3 mg/dL (8.5-10.1); Chloride 104 mmol/L (98-107); Creatinine, Serum 1.29 mg/dL (0.70-1.30); EST Glomerular Filtration Rate 57 mL/min (>60); Est Glom Filt Rate - Afr Amer 69 mL/min (>60); Free T3 2.5 pg/mL (2.18-3.98); Globulin 4.7 g/dL (2.2-4.2); Glucose 109 mg/dL (74-106); Potassium 4.2 mmol/L (3.5-5.1); Protein, Total 8.1 g/dL (6.4-8.2); Sodium Level 137 mmol/L (136-145); T4 Free Direct 0.97 ng/dL (0.76-1.46)
[2019-10-12 08:25] LABS: Vitamin B12 792 pg/mL (211-911)
[2019-10-12 16:59] LABS: ANTINUCLEAR ANTIBODIES DIRECT Negative (Negative)
== END ==
PROVIDERS: PCP Family Medicine; Referring Provider Family Medicine; Visit Provider Family Medicine
DX: R41.0 Disorientation, unspecified (principal)
CPT/HCPCS: 36415; 80053; 81001; 82607; 82746; 84439; 84443; 84481; 85025; 86038; 86140; 87086; 87088

== ENCOUNTER → 2019-11-12 09:05 | Outpatient (CLI) | payer MEDICARE, BC, SELFPAY | PROVIDERS: PCP Family Medicine; Referring Provider Urology; Visit Provider Urology | DX: R97.20 Elevated prostate specific antigen [PSA] (principal) | CPT/HCPCS: 36415; 84153 ==

== ENCOUNTER → 2020-01-14 11:25 | Outpatient (CLI) | payer MEDICARE, BC, SELFPAY ==
[2020-01-14 10:42] VITALS: BMI 19.3
[2020-01-14 12:59] LABS: AST(SGOT) 26 U/L (15-37); Alanine Aminotransfer ALT/SGPT 31 U/L (16-61); Albumin, Serum 3.5 g/dL (3.2-5.0); Alkaline Phosphatase 91 U/L (45-117); Bilirubin, Direct 0.17 mg/dL (0.00-0.30); Cholesterol 116 mg/dL (200); High Density Lipoprotein 43 mg/dL; Protein, Total 7.5 g/dL (6.4-8.2); Triglycerides 74 mg/dL; Very Low Density Lipoprotein 15 mg/dL (5-40)
== END ==
PROVIDERS: PCP Family Medicine; Referring Provider Internal Medicine Cardiovascular Disease; Visit Provider Internal Medicine Cardiovascular Disease
DX: E78.00 Pure hypercholesterolemia, unspecified (principal)
CPT/HCPCS: 36415; 80061; 80076

== ENCOUNTER → 2020-01-28 11:31 | Outpatient (CLI) | payer MEDICARE, BC, SELFPAY ==
[2020-01-28 10:07] VITALS: BMI 19.6
[2020-01-28 13:32] LABS: Thyroid Stim Hormone (TSH) 2.63 uIU/mL (0.358-3.74)
== END ==
PROVIDERS: PCP Family Medicine; Visit Provider Nurse Practitioner Family
DX: E87.1 Hypo-osmolality and hyponatremia (principal); R79.89 Other specified abnormal findings of blood chemistry
CPT/HCPCS: 36415; 84443

== ENCOUNTER → 2020-05-14 09:24 | Outpatient (CLI) | payer MEDICARE, BC, SELFPAY | PROVIDERS: PCP Family Medicine; Visit Provider Urology | DX: R97.20 Elevated prostate specific antigen [PSA] (principal) | CPT/HCPCS: 36415; 84153; G0103 ==

== ENCOUNTER → 2020-10-07 08:25 | Outpatient (CLI) | payer MEDICARE, BC, SELFPAY ==
[2020-10-07 10:18] LABS: AST(SGOT) 23 U/L (15-37); Alanine Aminotransfer ALT/SGPT 31 U/L (16-61); Albumin, Serum 3.7 g/dL (3.2-5.0); Alkaline Phosphatase 67 U/L (45-117); Bilirubin, Direct 0.23 mg/dL (0.00-0.30); Cholesterol 140 mg/dL (200); Globulin 3.8 g/dL (2.2-4.2); High Density Lipoprotein 57 mg/dL; Protein, Total 7.5 g/dL (6.4-8.2); Triglycerides 99 mg/dL; Very Low Density Lipoprotein 20 mg/dL (5-40)
== END ==
PROVIDERS: PCP Family Medicine; Referring Provider Nurse Practitioner Family; Visit Provider Nurse Practitioner Family
DX: E78.00 Pure hypercholesterolemia, unspecified (principal); E78.5 Hyperlipidemia, unspecified
CPT/HCPCS: 36415; 80061; 80076

== ENCOUNTER 2020-10-26 05:30 | Emergency (ER) | payer MEDICARE, BC, SELFPAY ==
[2020-10-26 05:33] VITALS: BP 154/86; PULSE 93; RESP 16; TEMP 36.4; O2SAT 94; BMI 19.5
--- NOTE | 2020-10-26 05:45 | ED.DCSUM_ITS ---
History of Present Illness Chief Complaint: General Illness Informant: Patient Narrative: Patient stated he is having urinary retention. He saw Dr. Montiel for this yesterday and is scheduled to have an outpatient prostate surgery on October 24 for prostate hypertrophy. The increase his Flomax at that time. He also has prostate cancer but they are watching this closely. Is been known metastasis. He has been having difficulty with retention for several weeks. Is gotten to the point where he was unable to urinate this morning. He has had Law catheters remotely in the past but nothing recent. They are mainly postsurgical previously. He did have a bowel movement yesterday but feels like he has to have one this morning but cannot due to his urinary retention. - Past Medical History (1) Delirium due to another medical condition Status: Acute (2) Normochromic normocytic anemia Status: Acute (3) QT prolongation Status: Acute (4) Thrombocytosis Status: Acute (5) Aortic stenosis, severe Status: Chronic (6) Atherosclerosis of [place] coronary artery of [place] heart without angina pectoris Status: Chronic Comment: 08/18/19 at [facility] to LAD, SVG to OM1, SVG to PDA (7) Cerebrovascular disease Status: Chronic (8) Dementia Status: Chronic (9) H/O ischemic left MCA stroke Status: Chronic Comment: 07/22/19 (10) History of BPH Status: Chronic (11) History of aortic valve replacement with bioprosthetic valve Status: Chronic Comment: 08/19/2019 at [facility] with a JAMIN clip. [place] prosthetic aortic valve (size #23) (12) History of hypertension Status: Chronic (13) History of left heart catheterization Status: Chronic Comment: Preserved Left Ventricular systolic function with normal EDP. [place] Multivessel CAD (LM, LAD, RCA). Aortic Valve Stenosis- Severe. Surgery consult for coronary revascularization; Surgery consult for Valve Replacement surgery D/w Dr Cooney. Arrange tx to [facility]. 07/16/2019 per RADHA @[facility] (14) History of prostate cancer Status: Chronic (15) History of rheumatic fever Status: Chronic (16) Hyperlipidemia Status: Chronic (17) Left ventricular hypertrophy Status: Chronic (18) Multi-vessel coronary artery stenosis Status: Chronic Comment: Preserved Left Ventricular systolic function with normal EDP. [place] Multivessel CAD (LM, LAD, RCA). Aortic Valve Stenosis- Severe. Surgery consult for coronary revascularization; Surgery consult for Valve Replacement surgery D/w Dr Cooney. Arrange tx to [facility]. 07/16/2019 per RADHA @[facility] (19) S/P CABG x 3 Status: Chronic Comment: 08/18/19 at [facility] to LAD, SVG to OM1, SVG to PDA (20) Severe protein-calorie malnutrition Status: Chronic (21) Tobacco dependence in remission Status: Chronic Comment: Quit smoking in 1989 (22) Hyponatremia Status: Resolved (23) Paroxysmal atrial fibrillation Status: Resolved Comment: post op CABG Past Medical History - Allergies and Home Meds Allergies/Adverse Reactions: Allergies No Known Allergies Allergy (Verified 10/26/20 05:31) Primary Care Physician: Memo Richards MD [Primary Care Provider] - Prior records reviewed: Yes Past Medical History: - - See problem list Surgical History: noncontributory, coronary bypass surgery, - - bioprosthetic AVR at [facility] main campus on 08/18/19, JAMIN clip 08/18/19, Lives: With Family Smoking Status: Former smoker Alcohol: None Drugs: None - Family History Maternal Family History: Family History (Last Reviewed 10/06/20 @ 14:47 by Margaret Plascencia) Father Myocardial infarction Family History: Reports: - - pt unable to recall FH due to =recent encephalopathy after L MCA stroke and family not present Review of Systems General: Denies: Chills, Fever, Sweats Eyes: Denies: Visual changes - bilaterally, Diplopia ENT: Denies: Rhinorrhea, Sore throat Cardiovascular: Denies: Chest pain, Palpitations Respiratory: Denies: Dyspnea, Cough, Dyspnea on exertion Gastrointestinal: Reports: Abdominal pain - Suprapubic fullness. Denies: Nausea, Vomiting, Diarrhea, Melena, Hematochezia Genitourinary: Denies: Dysuria, Hematuria, Frequency Musculoskeletal: Denies: Back pain, Extremity Pain Skin: Denies: Rash, Wounds Neurological: Denies: Headache, Weakness, Numbness Physical Exam Vital Signs/Narrative: Vital Signs Temp Pulse Resp BP Pulse Ox 10/26/20 05:33 97.6 F L 93 16 154/86 H 94 General: Well nourished, Well developed, No Acute Distress Head: Normocephalic, Atraumatic Eyes: Perrl, EOMI ENT: Moist mucous membranes, No rhinorrhea Neck: Supple, Nontender Cardiovascular: Regular rate, Regular rhythm, No murmurs Respiratory: No distress, CTA bilaterally, Chest nontender Abdomen: Soft, Nondistended, Normal bowel sounds, Tender - Tender suprapubic with fullness Back: Nontender, Normal Inspection Extremities: Nontender, No edema Skin: Normal color, No rash Neurological: Alert, Oriented x3, Cranial nerves II-XII grossly intact, Normal Strength, Normal Sensation Psychological: Normal affect, Normal Mood Diagnostic/Tx/Re-eval - Medical Decision Making Bladder scan showed at least a liter of fluid. Law catheter ordered. Law put out 1 L of fluids patient felt back to baseline afterwards. He will be given a leg bag and follow-up with his urologist for outpatient further evaluation of chronic benign prostatic hypertrophy ED Disposition - Plan for ED Patient: Disposition: Home or Assisted Living Diagnosis: Urinary retention due to benign prostatic hyperplasia Instructions: ED Law Catheter, Care, ED BPH (Enlarged Prostate), ED Urinary Retention, Male Referrals: Krish Montiel MD [STAFF PHYSICIAN] -
--- NOTE | 2020-10-26 06:46 | ED.RN ---
PT GIVEN LEG BAG TO TAKE HOME. PT AND FAMILY MEMBER INSTRUCTED ON HOW TO USE BOTH URINE BAGS.
== END 2020-10-26 06:47 | disposition home or self-care (01) ==
PROVIDERS: Emergency Provider Emergency Medicine; PCP Family Medicine
DX: N40.1 Benign prostatic hyperplasia with lower urinary tract symptoms (principal); R33.8 Other retention of urine; I48.0 Paroxysmal atrial fibrillation; E78.5 Hyperlipidemia, unspecified; F03.90 Unspecified dementia, unspecified severity, without behavioral disturbance, psychotic disturbance, mood disturbance, and anxiety; I25.10 Atherosclerotic heart disease of native coronary artery without angina pectoris; I35.0 Nonrheumatic aortic (valve) stenosis; Z86.73 Personal history of transient ischemic attack (TIA), and cerebral infarction without residual deficits; Z95.3 Presence of xenogenic heart valve; Z85.46 Personal history of malignant neoplasm of prostate; Z95.1 Presence of aortocoronary bypass graft; E43 Unspecified severe protein-calorie malnutrition; Z87.891 Personal history of nicotine dependence; Z82.49 Family history of ischemic heart disease and other diseases of the circulatory system
CPT/HCPCS: 51702; 99283

== ENCOUNTER → 2020-10-28 15:25 | Outpatient (CLI) | payer MEDICARE, BC, SELFPAY ==
[2020-10-26 05:33] VITALS: BMI 19.5
--- NOTE | 2020-10-28 15:28 | CT_ITS ---
INDICATION: BPH/URINE RETENTION EXAMINATION: CT Abdomen And Pelvis W/O Contrast Injection TECHNIQUE: Helically acquired images were obtained of the abdomen and pelvis without the use of IV contrast. A radiation dose optimization technique was used for this scan. Oral contrast: None. COMPARISON: None FINDINGS: Evaluation of the solid organs and vascular structures is limited without intravenous contrast. Visualized lung bases: Bibasilar atelectasis. Left basilar scarring/pleural thickening. Liver: Unremarkable Gallbladder: Unremarkable Spleen: Unremarkable Pancreas: Unremarkable Adrenal Glands: Unremarkable Kidneys: 2.4 cm simple cyst in the right midpole. Multiple subcentimeter hyperdense renal cysts in the left kidney. Vasculature: Severe aortoiliac atherosclerotic disease. GI Tract: Scattered diverticula throughout the colon. There is circumferential wall thickening of the descending colon with surrounding mesenteric fat stranding. There is also wall thickening of the proximal sigmoid colon. Lymphadenopathy: None Peritoneum: No ascites. Bladder: OWEN catheter is in place. The prostate gland is markedly enlarged and is indistinguishable from the bladder. Reproductive organs: Unremarkable Bones/Soft tissues: There are diffuse degenerative changes of the spine. CT/Abdomen/Pelvis without Cont IMPRESSION: The prostate gland is markedly enlarged and is indistinguishable from the bladder. Recommend correlation with PSA levels, urology consult and possible MRI. Acute descending colon diverticulitis. Wall thickening of the proximal sigmoid colon could represent chronic colitis/diverticulitis, however, cannot rule out underlying mass. Recommend colonoscopy. Multiple proteinaceous or hemorrhagic cysts in the left kidney. Electronically Signed: Teddy Adorno MD at 18:05 EDT Tel , Service support ,
== END ==
PROVIDERS: PCP Family Medicine; Referring Provider Urology; Visit Provider Urology
DX: R33.9 Retention of urine, unspecified (principal)
CPT/HCPCS: 74176

== ENCOUNTER → 2020-11-07 14:40 | Outpatient (CLI) | payer MEDICARE, BC, SELFPAY ==
[2020-10-26 05:33] VITALS: BMI 19.5
[2020-11-07 17:35] LABS: Absolute Neutrophil Count 8.9 X10^3/uL (2.0-7.7); Basophil# 0.04 X10^3/uL; Basophil% 0.4 % (0-1); Eosinophil# 0.22 X10^3/uL; Eosinophils% 2.1 % (0-5); Hematocrit 44.1 % (40-54); Hemoglobin 13.5 g/dL (13.0-16.5); Lymphocyte % 5.7 % (19-41); Mean Corp Hgb Conc 30.6 g/dL (32-36); Mean Corpuscular Hgb 28.1 pg (27.0-32.0); Mean Corpuscular Volume 91.7 fL (80-94); Mean Platelet Vol. 11.2 fl (6.2-12.0); Monocyte# 0.63 X10^3/uL; NRBC Flagged by Analyzer 0 % (0-5); Neutrophil # 8.93 X10^3/uL (2.7-7.7); Neutrophil % 85.3 % (47-70); POSITIVE DIFFERENTIAL YES; Platelet Count 293 K/mm3 (150-450); RBC Distribution Width CV 13.2 % (11.6-14.6); RBC Distribution Width SD 44.7 fl (35.1-43.9); Red Blood Count 4.81 M/mm3 (4.6-6.2); White Blood Count 10.5 K/mm3 (4.4-11.0)
[2020-11-07 17:48] LABS: Prothrombin Time (Protime)PT. 12.6 SECONDS (11.7-14.9)
[2020-11-07 17:49] LABS: Partial Thromboplast Time 27.9 Seconds (24.1-36.2)
[2020-11-07 17:52] LABS: Differential Indicated SCAN CRITERIA MET
[2020-11-07 18:02] LABS: ALB/GLOB Ratio 0.9 RATIO (0.9-2.4); AST(SGOT) 29 U/L (15-37); Alanine Aminotransfer ALT/SGPT 34 U/L (16-61); Albumin, Serum 3.5 g/dL (3.2-5.0); Alkaline Phosphatase 83 U/L (45-117); Anion Gap 6 (5-15); BUN 17 mg/dL (7-18); BUN/Creat Ratio 14.9 RATIO (10-20); Calcium,Total 9.3 mg/dL (8.5-10.1); Chloride 104 mmol/L (98-107); Creatinine, Serum 1.14 mg/dL (0.70-1.30); EST Glomerular Filtration Rate 66 mL/min (>60); Est Glom Filt Rate - Afr Amer 80 mL/min (>60); Glucose 93 mg/dL (74-106); Potassium 4.4 mmol/L (3.5-5.1); Protein, Total 7.5 g/dL (6.4-8.2); Sodium Level 138 mmol/L (136-145)
[2020-11-07 18:27] LABS: Platelet Estimate ADEQUATE (ADEQ); Red Cell Morphology NORM C+C NORMAL (NORM C&C)
[2020-11-09 09:55] LABS: Carcinoembryonic Antigen 2.1 ng/mL (0.0-4.7)
[2020-11-09 10:18] LABS: CRP < 2.90 mg/L (0.0-3.0)
== END ==
PROVIDERS: PCP Family Medicine; Visit Provider Family Medicine
DX: K63.9 Disease of intestine, unspecified (principal); C61 Malignant neoplasm of prostate
CPT/HCPCS: 36415; 80053; 82378; 84153; 85025; 85610; 85730; 86140

== ENCOUNTER 2020-11-14 23:49 | Inpatient (IN) | payer MEDICARE, BC, SELFPAY ==
[2020-11-14 23:50] VITALS: BP 162/93; PULSE 82; RESP 18; TEMP 36.1; O2SAT 93; BMI 20.4
--- NOTE | 2020-11-14 23:58 | EX.ED.DYSGE1 ---
HPI History of Present Illness Chief Complaint: Law C/O Narrative Narrative: Patient presents with urinary retention. He does have an indwelling Law catheter with a leg bag however he noticed some blood and now he does not have any urine output. He has some suprapubic pain and pressure. No fever chills or back pain. No diarrhea or constipation. No upper abdominal pain. [facility] Medical History (Updated 11/15/20 @ 03:[address] Tray Martinez MD) Aortic stenosis, severe Delirium due to another medical condition H/O ischemic left MCA stroke Hemothorax, left History of BPH History of hypertension History of prostate cancer History of rheumatic fever Hyperlipidemia Hyponatremia Left ventricular hypertrophy Multi-vessel coronary artery stenosis Normochromic normocytic anemia Paroxysmal atrial fibrillation Pneumothorax, right Presbycusis of both ears QT prolongation Severe protein-calorie malnutrition Thrombocytosis Tobacco dependence in remission Urine retention Home Medications tamsulosin 0.4 mg PO BID 12/19/13 [History Last Taken 07/14/19] therapeutic multivitamin 1 tab PO DAILY 08/31/19 [History Last Taken Unknown] finasteride 5 mg tablet 5 mg PO DAILY 01/14/20 [History Last Taken Unknown] aspirin 81 mg tablet,delayed release 81 mg PO DAILY 01/28/20 [History Last Taken Unknown] atorvastatin 80 mg tablet 80 mg PO QHS #90 tab 08/04/20 [Rx Last Taken Unknown] clopidogrel 75 mg tablet 75 mg PO DAILY #90 tab 08/04/20 [Rx Last Taken Unknown] metoprolol tartrate 25 mg tablet 12.5 mg PO QHS #45 tab 08/04/20 [Rx Last Taken Unknown] Allergy/AdvReac Type Severity Reaction Status Date / Time No Known Allergies Allergy Verified 11/14/20 23:53 Family History Father Myocardial infarction Surgical History H/O local excision of skin lesion History of aortic valve replacement with bioprosthetic valve History of left heart catheterization (07/16/19) S/P CABG x 3 Social History (Updated 10/06/20 @ 16:43 by Yeni Denson CATERING AND EVENTS MANAGER, CATERING AND EVENTS MANAGER-C) Smoking Status: Former smoker Tobacco: How many years used: 5 how long ago did patient quit smokin+ years alcohol intake: never substance use type: does not use caffeine: Yes Type: coffee Number of servings: 1 ROS ROS ED ROS Narrative Past medical history: Reviewed, includes slight dementia, CVA, hyponatremia, history of rheumatic fever, status post CABG and aortic valve replacement, history of BPH and prostate cancer. Medications: Reviewed Social history: Noncontributory Review of systems: All systems negative except as indicated General: No fever Cardiovascular: No chest pain Respiratory: No shortness of breath or cough Gastrointestinal: Suprapubic pain. Genitourinary: Urinary retention. Musculoskeletal: Denies myalgias no difficulty with ambulation Skin: No rash Neurological: No memory loss, confusion or any focal weakness Psych: No recent behavioral changes Hematologic: No easy bleeding or easy bruising EXAM Physical Exam Narrative Exam Narrative: Physical exam General: Patient appears slightly uncomfortable in bed. Head: Normocephalic, Atraumatic Neck: Supple, Nontender, No lymphadenopathy Cardiovascular: Regular rate, Regular rhythm Respiratory: No distress, CTA bilaterally Abdomen: Soft, there is slight suprapubic pain I do not appreciate an obvious suprapubic mass. : Law catheter is in place however I do see blood in the tubing. Back: Nontender, Normal Inspection. Negative for: CVA tenderness Extremities: Nontender, No edema Skin: Normal color, No rash Neurological: Alert, Normal Strength, Normal Sensation Psychological: Normal affect Const Vital Signs: 11/14/20 23:50 11/15/20 03:29 Temperature 96.9 F L Temperature Source Temporal Pulse Rate 82 72 Respiratory Rate 18 18 Blood Pressure 162/93 H 117/73 Blood Pressure Mean 116 87 Pulse Ox 93 97 Oxygen Delivery Method Room Air Room Air [facility] Lab Data Labs: Laboratory Results - last 24 hr 11/15/20 11/15/20 02:24 02:24 WBC 21.4 H RBC 4.26 L Hgb 12.0 L Hct 38.8 L MCV 91.1 MCH 28.2 MCHC 30.9 L RDW Std Deviation 44.0 H RDW Coeff of Kirsten 13.2 Plt Count 293 MPV 10.1 Immature Gran % (Auto) 0.700 Neut % (Auto) 93.1 H Lymph % (Auto) 2.[address] [place] % (Auto) 3.7 Eos % (Auto) 0.2 Baso % (Auto) 0.2 Absolute Neuts (auto) 19.9 H Absolute Lymphs (auto) 0.46 L Nucleated RBC % 0 Sodium 138 Potassium 4.3 Chloride 107 Carbon Dioxide 27.0 Anion Gap 4 L BUN 21 H Creatinine 1.20 Estim Creat Clear Calc 49.08 Est GFR (MDRD) Af Amer 75 Est GFR (MDRD) Non-Af 62 BUN/Creatinine Ratio 17.5 Glucose 152 H Calcium 9.0 Patient continues to have hematuria, he has a three-way catheter now and is getting continuous irrigation but if this would stop it he gets blood. He has some leukocytosis. I will admit him to the hospital for further work-up, he does have a history of a mass on a CT which will need to be worked up further also. I will give antibiotics. Discharge Plan Triage Chief Complaint: Law C/O ED Provider: Tray Martinez Dx/Rx/DC Orders Clinical Impression: Hematuria Prescriptions: No Action finasteride 5 mg tablet 5 mg PO DAILY RF: 0 aspirin [Adult Aspirin Regimen] 81 mg tablet,delayed release (DR/EC) 81 mg PO DAILY RF: 0 metoprolol tartrate 25 mg tablet 12.5 mg PO QHS Qty: 45 RF: 3 atorvastatin 80 mg tablet 80 mg PO QHS Qty: 90 RF: 3 clopidogrel 75 mg tablet 75 mg PO DAILY Qty: 90 RF: 3 tamsulosin 0.4 MG capsule 0.4 mg PO BID RF: 0 therapeutic multivitamin 1 EACH tablet 1 tab PO DAILY RF: 0 Primary Care Provider: Memo Richards Referrals: Memo Richards MD [Primary Care Provider] - Disposition Disposition: Acute Care Hospital [facility]
[2020-11-15] VITALS (9 sets, daily range): BP systolic 97–124; BP diastolic 59–86; PULSE 72–82; RESP 16–18; TEMP 36.4–37.2; O2SAT 95–100; BMI 19.0
--- NOTE | 2020-11-15 01:57 | ED.RN ---
Patient presents with gross hematuria.18g catheter replaced due to inability to flush at this time. patient manual irrigation with 2 bottles of sterile water and multiple clots removed with urine still bright red with dark red blood. due to severe gross hematuria. patient had 3 way irrigation at this time. CBI started at this time. Patient having increasing hematuria at this time. 1 bag of cbi infusing at this.
--- NOTE | 2020-11-15 02:15 | ED.RN ---
nurse called into the room patient being at the urethra. manual irrigation completed. patient noted to have several large clots again
[2020-11-15 02:30] LABS: Absolute Lymphocyte Count 0.46 X10^3/uL (0.83-4.51); Absolute Neutrophil Count 19.9 X10^3/uL (2.0-7.7); Basophil# 0.04 X10^3/uL; Basophil% 0.2 % (0-1); Eosinophil# 0.04 X10^3/uL; Eosinophils% 0.2 % (0-5); Hematocrit 38.8 % (40-54); Lymphocyte # 0.46 X10^3/ul (0.83-4.51); Lymphocyte % 2.1 % (19-41); Mean Corp Hgb Conc 30.9 g/dL (32-36); Mean Corpuscular Hgb 28.2 pg (27.0-32.0); Mean Corpuscular Volume 91.1 fL (80-94); Mean Platelet Vol. 10.1 fl (6.2-12.0); Monocyte% 3.7 % (0-10); NRBC Flagged by Analyzer 0 % (0-5); Neutrophil # 19.91 X10^3/uL (2.7-7.7); Neutrophil % 93.1 % (47-70); POSITIVE DIFFERENTIAL YES; Platelet Count 293 K/mm3 (150-450); RBC Distribution Width CV 13.2 % (11.6-14.6); Red Blood Count 4.26 M/mm3 (4.6-6.2); White Blood Count 21.4 K/mm3 (4.4-11.0)
[2020-11-15 02:36] LABS: Differential Indicated SCAN CRITERIA MET
[2020-11-15 02:45] LABS: Anion Gap 4 (5-15); BUN 21 mg/dL (7-18); BUN/Creat Ratio 17.5 RATIO (10-20); Chloride 107 mmol/L (98-107); EST Glomerular Filtration Rate 62 mL/min (>60); Est Glom Filt Rate - Afr Amer 75 mL/min (>60); Estimated Creatinine Clearance 49.08 ml/min; Glucose 152 mg/dL (74-106); Potassium 4.3 mmol/L (3.5-5.1); Sodium Level 138 mmol/L (136-145)
--- NOTE | 2020-11-15 03:25 | ED.RN ---
BLADDER IRRIGATION PUT ON HOLD IN ATTEMPT TO SEE IF URINE WOULD CLOT OR NOT. PATIENT HAVING INCREASED PAIN. PATIENT MANUAL IRRIGATED AND LARGE A LOT OF CLOTS NOTED WITH DARK RED URINE NOTED. CBI STARTED AGAIN AT A SLOWER RATE
--- NOTE | 2020-11-15 03:42 | HP.PCM_ITS ---
HPI - General HPI Narrative JESSENIA DURON, is a 80 M who presents to the emergency room with urinary obstruction. Patient has a significant history of enlarged prostate for which she sees Dr. Montiel. Despite having a Law catheter in place the patient continues to get recurrent clot and obstruction of the Law catheter. He denies any pain, fever or chills,or chest pain or shortness of breath. Patient will be admitted for further management of his urinary obstruction and urologist will be consulted. [facility] Medical History (Updated 11/15/20 @ 03:[address] Tray Martinez MD) Aortic stenosis, severe Delirium due to another medical condition H/O ischemic left MCA stroke Hemothorax, left History of BPH History of hypertension History of prostate cancer History of rheumatic fever Hyperlipidemia Hyponatremia Left ventricular hypertrophy Multi-vessel coronary artery stenosis Normochromic normocytic anemia Paroxysmal atrial fibrillation Pneumothorax, right Presbycusis of both ears QT prolongation Severe protein-calorie malnutrition Thrombocytosis Tobacco dependence in remission Urine retention Home Medications tamsulosin 0.4 mg PO BID 12/19/13 [History Last Taken 07/14/19] therapeutic multivitamin 1 tab PO DAILY 08/31/19 [History Last Taken Unknown] finasteride 5 mg tablet 5 mg PO DAILY 01/14/20 [History Last Taken Unknown] aspirin 81 mg tablet,delayed release 81 mg PO DAILY 01/28/20 [History Last Taken Unknown] atorvastatin 80 mg tablet 80 mg PO QHS #90 tab 08/04/20 [Rx Last Taken Unknown] clopidogrel 75 mg tablet 75 mg PO DAILY #90 tab 08/04/20 [Rx Last Taken Unknown] metoprolol tartrate 25 mg tablet 12.5 mg PO QHS #45 tab 08/04/20 [Rx Last Taken Unknown] Allergy/AdvReac Type Severity Reaction Status Date / Time No Known Allergies Allergy Verified 11/14/20 23:53 Family History Father Myocardial infarction Surgical History H/O local excision of skin lesion History of aortic valve replacement with bioprosthetic valve History of left heart catheterization (07/16/19) S/P CABG x 3 Social History (Updated 10/06/20 @ 16:43 by Yeni Denson WOODWORKING MACHINE OFFBEARER, WOODWORKING MACHINE OFFBEARER-C) Smoking Status: Former smoker Tobacco: How many years used: 5 how long ago did patient quit smokin+ years alcohol intake: never substance use type: does not use caffeine: Yes Type: coffee Number of servings: 1 ROS Genitourinary Genitourinary: Reports hematuria, oliguria and other Details: obstruction of catheter Vital Signs Vital Signs Vital Signs: 11/14/20 23:50 11/15/20 03:29 Temperature 96.9 F L Temperature Source Temporal Pulse Rate 82 72 Respiratory Rate 18 18 Blood Pressure 162/93 H 117/73 Blood Pressure Mean 116 87 Pulse Ox 93 97 Oxygen Delivery Method Room Air Room Air Physical Exam Const alert and oriented x3 General Appearance: cooperative HEENT normocephalic and head/scalp atraumatic Neck supple Lymph Lymphatic: no lymphadenopathy noted Resp normal respiratory effort and clear to auscultation bilaterally Cardio regular rate, regular rhythm, S1 normal heart sound and S2 normal heart sound GI normal to inspection, nondistended, normoactive bowel sounds Skin Rashes: no rashes Neuro Sensorium / Orientation: awake and alert Psych affect normal Lab / Micro Data Result Diagrams: 11/15/20 02:24 11/15/20 02:24 Labs: Laboratory Results - last 24 hr 11/15/20 11/15/20 02:24 02:24 WBC 21.4 H RBC 4.26 L Hgb 12.0 L Hct 38.8 L MCV 91.1 MCH 28.2 MCHC 30.9 L RDW Std Deviation 44.0 H RDW Coeff of Kirsten 13.2 Plt Count 293 MPV 10.1 Immature Gran % (Auto) 0.700 Neut % (Auto) 93.1 H Lymph % (Auto) 2.1 L [place] % (Auto) 3.7 Eos % (Auto) 0.2 Baso % (Auto) 0.2 Absolute Neuts (auto) 19.9 H Absolute Lymphs (auto) 0.46 L Nucleated RBC % 0 Sodium 138 Potassium 4.3 Chloride 107 Carbon Dioxide 27.0 Anion Gap 4 L BUN 21 H Creatinine 1.20 Estim Creat Clear Calc 49.08 Est GFR (MDRD) Af Amer 75 Est GFR (MDRD) Non-Af 62 BUN/Creatinine Ratio 17.5 Glucose 152 H Calcium 9.0 Assessment & Plan Assessment/Plan (1) Hematuria: (2) History of hypertension: (3) History of BPH: (4) History of aortic valve replacement with bioprosthetic valve: (5) S/P CABG x 3: (6) Tobacco dependence in remission: (7) Paroxysmal atrial fibrillation: (8) Hyperlipidemia: QUALIFIERS: Hyperlipidemia type: unspecified Qualified Code(s): E78.5 - Hyperlipidemia, unspecified (9) H/O ischemic left MCA stroke: (10) Dementia: QUALIFIERS: Dementia type: unspecified type Dementia behavioral disturbance: without behavioral disturbance Qualified Code(s): F03.90 - Unspecified dementia without behavioral disturbance PLAN: Plan 1. History of BPH, acute urinary obstruction that is recurrent after flushing with hematuria?admit patient to general medical floor, consult Dr. Montiel, maintain patient n.p.o. pending evaluation. Continue to flush Law 2. Hypertension?continue home medications 3. Hyperlipidemia?continue statin medication 4. Paroxysmal atrial fibrillation?we will hold any anticoagulation at this time including Plavix due to consideration for procedure 5. DVT prophylaxis?SCDs 6. Dementia?patient is able to maintain a coherent conversation and indicate right from wrong and in my opinion is able to make decisions for himself at this time Visit Charges OBSV E&M: [id number] Initial observation care L2
[2020-11-15 03:59] LABS: International Normalized Ratio 1.1; Prothrombin Time (Protime)PT. 13.9 SECONDS (11.7-14.9)
[2020-11-15] MEDS: Ceftriaxone 1 GM/50 ML BAG IV ×2 (04:12→11:39)
[2020-11-15] MEDS: 0.9% Normal Saline 1,000 ML 100 ML IV ×2 (09:19→20:26)
--- NOTE | 2020-11-15 09:50 | PCM.PN.BLA ---
Progress Note Patient was seen and examined. Currently undergoing continuous bladder irrigation; urine is pablo red. Patient is on aspirin and Plavix for history of left MCA stroke in July 2019 -this has been held Will continue on gentle IV fluids, continuous bladder irrigation Also continue on IV ceftriaxone; urine cultures were not able to be sent
[2020-11-15] MEDS: Finasteride 5 MG Tablet PO (10:03)
[2020-11-15] MEDS: Tamsulosin HCl 0.4 MG Capsule PO ×2 (10:03→21:45)
--- NOTE | 2020-11-15 12:19 | PCM.CONS.U ---
Assessment & Plan Assessment/Plan (1) History of BPH: PLAN: plan for TURP tomorrow. hold all blood thinners. NPO at midnight, consent from patient. HPI Consult Data Date of Consult: 11/15/20 HPI Narrative HPI Narrative: JESSENIA DURON, is a 80 M who presents gross hematuria from v large prostate we were plannning for TURP next week but since bleeding but stable will add on for tomorrow for surgery. [facility] Medical History (Updated 11/15/20 @ 03:[address] Tray Martinez MD) Aortic stenosis, severe Delirium due to another medical condition H/O ischemic left MCA stroke Hemothorax, left History of BPH History of hypertension History of prostate cancer History of rheumatic fever Hyperlipidemia Hyponatremia Left ventricular hypertrophy Multi-vessel coronary artery stenosis Normochromic normocytic anemia Paroxysmal atrial fibrillation Pneumothorax, right Presbycusis of both ears QT prolongation Severe protein-calorie malnutrition Thrombocytosis Tobacco dependence in remission Urine retention Home Medications tamsulosin 0.4 mg PO BID 12/19/13 [History Last Taken 07/14/19] therapeutic multivitamin 1 tab PO DAILY 08/31/19 [History Last Taken Unknown] finasteride 5 mg tablet 5 mg PO DAILY 01/14/20 [History Last Taken Unknown] aspirin 81 mg tablet,delayed release 81 mg PO DAILY 01/28/20 [History Last Taken Unknown] atorvastatin 80 mg tablet 80 mg PO QHS #90 tab 08/04/20 [Rx Last Taken Unknown] clopidogrel 75 mg tablet 75 mg PO DAILY #90 tab 08/04/20 [Rx Last Taken Unknown] metoprolol tartrate 25 mg tablet 12.5 mg PO QHS #45 tab 08/04/20 [Rx Last Taken Unknown] Allergy/AdvReac Type Severity Reaction Status Date / Time No Known Allergies Allergy Verified 11/14/20 23:53 Family History Father Myocardial infarction Surgical History H/O local excision of skin lesion History of aortic valve replacement with bioprosthetic valve History of left heart catheterization (07/16/19) S/P CABG x 3 Social History (Updated 10/06/20 @ 16:43 by Yeni Denson PERSONAL CARE HOME ADMINISTRATOR, PERSONAL CARE HOME ADMINISTRATOR-C) Smoking Status: Former smoker Tobacco: How many years used: 5 how long ago did patient quit smokin+ years alcohol intake: never substance use type: does not use caffeine: Yes Type: coffee Number of servings: 1 ROS Constitutional Constitutional: Denies chills, fever(s) or malaise Eyes Eyes: Denies blurry vision or change in vision ENT HEENT: Reports none Cardiovascular Cardiovascular: Denies chest pain or palpitations Respiratory/Chest Respiratory/Chest: Denies cough or shortness of breath with exertion Gastrointestinal Gastrointestinal: Denies abdominal pain, constipation or diarrhea Musculoskeletal Musculoskeletal: Denies back pain, joint stiffness or joint swelling Integumentary Integumentary: Denies dry skin, jaundice, lesions or rash Neurologic Neurologic: Denies confusion, syncope or weakness Psychiatric Psychiatric: Reports none; Denies anxiety or depression Endocrine Endocrinology: Denies excessive sweating, fatigue or flushing Hematologic/Lymphatic Hematologic/Lymphatic: Denies anemia, easy bleeding or easy bruising Physical Exam Const alert and oriented x3 General Appearance: cooperative HEENT normocephalic, head/scalp atraumatic, EAC's normal and TM's normal bilaterally Eyes PERRL and EOMs intact bilaterally Pupil: sluggish Neck no lymphadenopathy, supple and no JVD General: trachea midline Lymph Lymphatic: no lymphadenopathy noted, lymphedema and lymphadenopathy Resp normal respiratory effort, normal air movement and clear to auscultation bilaterally Cardio regular rate, regular rhythm and peripheral pulses 2+ throughout GI soft to palpation, non-tender and non-distended Extremity normal capillary refill and no clubbing, cyanosis or edema General Extremity: no tenderness to palpation of joints or extremities Skin no rashes or lesions noted General Skin Exam: turgor normal Lesions: no lesions Rashes: no rashes Neuro CN's II-XII intact bilaterally Speech: speech normal Motor Exam: strength 5/5 throughout; Negative for general weakness Psych thought process normal, cooperative and affect normal Appearance: appropriate Lab / Micro Data Result Diagrams: 11/15/20 02:24 11/15/20 02:24 Labs: Laboratory Results - last 24 hr 11/15/20 11/15/20 11/15/20 02:24 02:24 02:24 WBC 21.4 H RBC 4.26 L Hgb 12.0 L Hct 38.8 L MCV 91.1 MCH 28.2 MCHC 30.9 L RDW Std Deviation 44.0 H RDW Coeff of Kirsten 13.2 Plt Count 293 MPV 10.1 Immature Gran % (Auto) 0.700 Neut % (Auto) 93.1 H Lymph % (Auto) 2.1 L [place] % (Auto) 3.7 Eos % (Auto) 0.2 Baso % (Auto) 0.2 Absolute Neuts (auto) 19.9 H Absolute Lymphs (auto) 0.46 L Nucleated RBC % 0 PT 13.9 INR 1.1 Sodium 138 Potassium 4.3 Chloride 107 Carbon Dioxide 27.0 Anion Gap 4 L BUN 21 H Creatinine 1.20 Estim Creat Clear Calc 49.08 Est GFR (MDRD) Af Amer 75 Est GFR (MDRD) Non-Af 62 BUN/Creatinine Ratio 17.5 Glucose 152 H Calcium 9.0
--- NOTE | 2020-11-15 14:50 | CASEMGMT ---
JASE DENT assessment: Face to Face with patient for initial transition planning/care coordination assessment. RN FILIPE introduced self and role at [facility], pt voices understanding and consents to assessment. Pt is sitting up in bed in no distress. Pt is A/Ox4 and answers all questions appropriately. Care providers, pharmacy, and demographics verified/updated. Presentation: Pt had catheter placed by Tiana and is having trouble emptying Admitting dx: Urinary obstruction PCP: Memo Richards Specialists: Tiana Preferred Pharmacy: [facility] Insurance: [facility] A/B, [place] Prescription Benefit: MCR D Living Will/HPOA: Pt has a LW/HPOA and is aware that they are on file at [facility]. Pt states his son, Meir Howe, is HPOA. LNOK: Meir Howe, son/HPOA; Lauren Cooper, daughter Living Arrangements: Pt states lives alone in 2 story home and states no concerns at home. Pt states is independent with ADL's. Pt states son lives behind him and daughter lives up the road. Transportation: Pt states drives self and states no transportation concerns. DME/HHC: Pt states no current DME or need for any at this time. Pt states no hx of HHC or SNF. Pt states no concerns with going home at time of discharge. Pt states is retired but does occasionally get called into where he retired from to help. Pt states does not smoke cigarettes or drink ETOH. Pt states no further concerns/needs. CM to follow for any further discharge planning/needs. Advised pt to ask for CM if any further questions/concerns/needs arise, voices understanding. Pt Goal: Home Plan: [place] JASE DENT
--- NOTE | 2020-11-15 16:36 | CHAPLAIN ---
Type of Pastoral Visit _x__ Initial Visit ___ Follow-up Visit ___ On-call Visit ___ General Patient Visit ___ Spiritual Assessment ___ Family Conference ___ Bereavement ___ Rapid Response ___ Code Blue ___ Other (describe below) Pastoral Care Referral From _x__ Patient ___ Family ___ Nurse ___ Physician ___ Account Development Executive ___ Public Welfare Director ___ Other (describe below) Sacrament/Intervention _x__ Active listening ___ Anointing ___ Mu-Ism ___ Bereavement ___ Communion ___ Nika exploration ___ ___ Life review ___ Prayer ___ Reconciliation ___ Sacrament of Sick _x__ Supportive presence ___ Wedding ___ Other (describe below) Pastoral Comments
--- NOTE | 2020-11-15 17:47 | NURSING ---
report called to [facility] RN, patients daughter Lauren notified of transfer, JASE Uriostegui transferring patient to [facility] at this time.
[2020-11-15] MEDS: Metoprolol Tartrate 25 MG Tablet 12.5 MG PO (21:44)
[2020-11-15] MEDS: Atorvastatin Calcium 80 MG Tablet PO (21:45)
[2020-11-16] VITALS (12 sets, daily range): BP systolic 106–149; BP diastolic 68–98; PULSE 62–108; RESP 14–18; TEMP 36.3–37.3; O2SAT 95–100; BMI 19.0
--- NOTE | 2020-11-16 | IMM_PTH ---
PATIENT: JESSENIA DURON LOC: [facility] U#:[id number] AGE/SX: 80/M ROOM: [facility] RE11/15/[address]: Dr. Corrie Wolfe MD : 1940 BED: 1 DIS: 11/19/2020 SPEC #: [id number] RECD: 11/18/20 14:28 STATUS: DO REQ #: [id number] MARIANELA: 11/16/20 00:[address]: Krish Montiel DEPT: IMMUNOHISTOCHEMISTRY RECD BY: Teresa Gayle ENTERED: 11/18/20 14:29 SP TYPE: IMMUNO OTHR DR: MD Dr. Memo Guerrero MD Dr. Paul Nielsen, MD Tissues: Prostate, NOS Procedures: P40 (add) 34BE12 (initial) [facility] [address] [address] SPECIMEN INFORMATION: Tissue Source: Prostate tissue, MARGARITA Clinical Info: BPH with obstruction, hematuria Specimen Number: [id number] #2 CPT code: 99432, 89245 METHODOLOGY: Deparaffinized sections of prefer/formalin-fixed tissue or PAP/DQ stained slides are incubated with monoclonal/polyclonal antibodies/oligonucleotide probes. Localization is made via biotin free immunoperoxidase method. Appropriate controls are performed and reacted as expected. Results on target cell population are indicated in the following table: RESULTS: ANTIBODY / CLONE RESULT Block 2 P40 (BC28) negative 34BE12 (34BE12) negative These tests were developed and their performance characteristics determined by [facility]. They may not have been cleared or approved by the U.S. Food and Drug Administration. The FDA has determined that such clearance or approval is not necessary. The above immunohistochemical/dualISH markers are ordered and reviewed by the Pathologist. INTERPRETATION: Prostate tissue, TUR: Adenocarcinoma. KIAN:jose 11/21/2020
[2020-11-16] MEDS: 0.9% Normal Saline 1,000 ML 100 ML IV ×2 (05:24→20:45)
[2020-11-16] MEDS: 0.9% Saline Lock 10 ML Syringe IV (05:24)
--- NOTE | 2020-11-16 06:00 | EKG12_ITS ---
Test Reason : MORNING EKG Blood Pressure : / mmHG Vent. Rate : 078 BPM Atrial Rate : 078 BPM P-R Int : 158 ms QRS Dur : 096 ms QT Int : 396 ms P-R-T Axes : 056 -19 031 degrees QTc Int : 451 ms Normal sinus rhythm Incomplete right bundle branch block Confirmed by LON JORGE, DAMIEN ([id number]), commercial production editor GABRIELA HENDRICKS ([id number]) on 11/17/2020 1:57:04 PM Referred By: MIHAI Confirmed By:DAMIEN FORREST MD
[2020-11-16 06:31] LABS: Absolute Lymphocyte Count 0.42 X10^3/uL (0.83-4.51); Absolute Neutrophil Count 8.4 X10^3/uL (2.0-7.7); Basophil# 0.02 X10^3/uL; Basophil% 0.2 % (0-1); Hematocrit 31.6 % (40-54); Hemoglobin 9.6 g/dL (13.0-16.5); Lymphocyte # 0.42 X10^3/ul (0.83-4.51); Lymphocyte % 4.3 % (19-41); Mean Corp Hgb Conc 30.4 g/dL (32-36); Mean Corpuscular Hgb 27.3 pg (27.0-32.0); Mean Corpuscular Volume 89.8 fL (80-94); Mean Platelet Vol. 10.3 fl (6.2-12.0); Monocyte# 0.71 X10^3/uL; Monocyte% 7.3 % (0-10); NRBC Flagged by Analyzer 0 % (0-5); Neutrophil # 8.38 X10^3/uL (2.7-7.7); Neutrophil % 85.9 % (47-70); POSITIVE DIFFERENTIAL YES; Platelet Count 217 K/mm3 (150-450); RBC Distribution Width CV 13.1 % (11.6-14.6); RBC Distribution Width SD 42.7 fl (35.1-43.9); Red Blood Count 3.52 M/mm3 (4.6-6.2); White Blood Count 9.8 K/mm3 (4.4-11.0)
[2020-11-16 06:33] LABS: Differential Indicated SCAN CRITERIA MET
[2020-11-16 06:55] LABS: Differential Comment SCANNED
[2020-11-16 07:05] LABS: Anion Gap 5 (5-15); BUN 14 mg/dL (7-18); BUN/Creat Ratio 16.8 RATIO (10-20); Calcium,Total 8.3 mg/dL (8.5-10.1); Chloride 108 mmol/L (98-107); Creatinine, Serum 0.83 mg/dL (0.70-1.30); EST Glomerular Filtration Rate 95 mL/min (>60); Est Glom Filt Rate - Afr Amer 115 mL/min (>60); Estimated Creatinine Clearance 65.98 ml/min; Glucose 99 mg/dL (74-106); Potassium 3.9 mmol/L (3.5-5.1); Sodium Level 139 mmol/L (136-145)
[2020-11-16] MEDS: Ceftriaxone 1 GM/50 ML BAG IV (10:40)
--- NOTE | 2020-11-16 11:36 | PN.HOSP_ITS ---
Subjective Subjective Patient was seen examined. No acute events overnight. Continues to have hematuria. Going for cystoscopy and TURP today. Continuous bladder irrigation ongoing. Objective Data Objective Data Vital Signs: Vital Signs Temp Pulse Resp BP Pulse Ox 97.8 F 85 16 135/85 H 98 11/16/20 09:00 11/16/20 09:00 11/16/20 09:00 11/16/20 09:00 11/16/20 09:00 Oxygen Delivery Method Room Air Weight: 63.6 kg Body Mass Index (BMI) 19.0 Finger Stick Blood Glucose 98 Intake & Output: Intake and Output for Last 24 Hours 11/14/20 11/15/20 11/16/20 23:59 23:59 23:59 Intake Total 1433.50 / 1433.50 1423.34 / 1423.34 Output Total 30346 / 54029 3100 / 3100 Balance -9926.50 / -9926.50 -1676.66 / -1676.66 Lab / Micro Data Result Diagrams: 11/16/20 06:22 11/16/20 06:22 Labs: Laboratory Results - last 24 hr 11/16/20 11/16/20 06:22 06:22 WBC 9.8 RBC 3.52 L Hgb 9.6 L Hct 31.6 L MCV 89.8 MCH 27.3 MCHC 30.4 L RDW Std Deviation 42.7 RDW Coeff of Kirsten 13.1 Plt Count 217 MPV 10.3 Immature Gran % (Auto) 0.300 Neut % (Auto) 85.9 H Lymph % (Auto) 4.3 L [place] % (Auto) 7.3 Eos % (Auto) 2.0 Baso % (Auto) 0.2 Absolute Neuts (auto) 8.4 H Absolute Lymphs (auto) 0.42 L Nucleated RBC % 0 Differential Comment SCANNED Sodium 139 Potassium 3.9 Chloride 108 H Carbon Dioxide 26.0 Anion Gap 5 BUN 14 Creatinine 0.83 Estim Creat Clear Calc 65.98 Est GFR (MDRD) Af Amer 115 Est GFR (MDRD) Non-Af 95 BUN/Creatinine Ratio 16.8 Glucose 99 Calcium 8.3 L Micro: Microbiology 11/15/20 16:55 Interface Orders SARS-CoV-2 Antigen (Rapid) - Final Physical Exam Narrative General: Alert, Oriented x3, Cooperative, No apparent distress, Well developed HEENT: Atraumatic Oral: Moist Mucosa Neck: Supple Lungs: Clear to auscultation Cardiovascular: HS I+II, regular, no murmurs Abdomen: Bowel Sounds Present, Soft, Non Tender, Law catheter has pablo red urine Extremities: No edema Skin: No rashes, No breakdown Neurological: Grossly intact Psych/Mental Status: Appropriate Assessment & Plan Assessment/Plan (1) Hematuria: QUALIFIERS: Hematuria type: gross Qualified Code(s): R31.0 - Gross hematuria (2) Acute blood loss anemia: (3) Nicotine dependence: QUALIFIERS: Nicotine product type: cigarettes Substance use status: uncomplicated Qualified Code(s): F17.210 - Nicotine dependence, cigarettes, uncomplicated (4) H/O ischemic left MCA stroke: PLAN: 1. Acute hematuria related to enlarged prostate, possible cystitis Currently undergoing continuous bladder irrigation; urology consulted Going for TURP and cystoscopy today Continue on IV ceftriaxone, finasteride, Flomax Continue to hold aspirin and Plavix 2. Acute blood loss anemia secondary to #1 Hemoglobin is currently 9.6, down from 13.5 Will continue to monitor; will transfuse less than 8 g/dL 3. History of ischemic left MCA stroke, aspirin and Plavix on hold on account of #1 4. Rest of chronic medical conditions including hypertension, hyperlipidemia, dementia all remained stable, medications have been continued Visit Charges Inpatient E&M: 02769 Subs Hosp L2
--- NOTE | 2020-11-16 13:10 | NURSING ---
up to the bathroom x2, pt flushed prior to this nurse seeing. he reports 4 small pieces the first time and did not report the 2nd.
--- NOTE | 2020-11-16 14:37 | NURSING ---
RNCM Palliative Screening [facility] Palliative Medicine screening tool done and does not meet criteria at this time. No referral made. JODY Holland
--- NOTE | 2020-11-16 14:58 | NURSING ---
1430, PT OFF UNIT FOR SURGERY
[2020-11-16] MEDS: Cefazolin 2 GM in 0.9% Normal Saline 100 ML IV (16:09)
--- NOTE | 2020-11-16 16:10 | PROS_PTH ---
PATIENT: JESSENIA DURON LOC: [facility] U#:[id number] AGE/SX: 80/M ROOM: [place] RE11/15/[address]: Dr. Corrie Wolfe MD : 1940 BED: 1 DIS: 11/19/2020 SPEC #: [id number] RECD: 11/17/20 10:37 STATUS: DO SIGALA #: [id number] MARIANELA: 11/16/20 16:[address]: Krish Montiel DEPT: SURGICAL PATHOLOGY RECD BY: Dayan Avilez ENTERED: 11/17/20 11:26 SP TYPE: TURP OTHR DR: MD Dr. Memo Guerrero MD Dr. Juan Miguel Proano, MD Dr. Paul Nielsen, MD Tissues: Prostate, NOS Procedures: Surgery Specimen Level IV Comments: @ Ordering doctor for SUIV edited from to @ by JANET at 11/17/20 1240 @ Submitting doctor edited from to @ by RGOOD at 11/17/20 1240 HEADER OPERATION: Cysto, transurethral resection prostate PRE-OP DIAGNOSIS: BPH with obstruction, hematuria TISSUE SUBMITTED: Prostate tissue MICROSCOPIC DIAGNOSIS Prostate tissue, TUR: Prostatic adenocarcinoma. Acute and chronic inflammation. Mild urothelial atypia involving prostate urethral epithelium, favor reactive. See cancer summary in the comment section. SJ:jose 11/18/2020 COMMENT PROSTATE CANCER (TUR) SUMMARY: Procedure ? transurethral resection of prostate (TURP) Histologic type ? acinar adenocarcinoma. Histologic grade ([place] Pattern) ? grade group 1 (Lex score 3+3=6) Intraductal carcinoma ? not identified. Tumor Quantitation: Estimated percentage of prostate tissue involved by tumor- ~20% Number of positive chips - ~30 Total number of chips - ~120 Periprostatic fat invasion ? not applicable Seminal vesicle invasion - not applicable Lymphvascular invasion ? not identified Perineural invasion ? not identified Additional pathologic findings ? benign prostatic hyperplasia, glandular and stromal type. Acute and chronic inflammation. Mild urothelial atypia involving prostate urethral epithelium, favor reacitve. Treatment effect ? no known presurgical therapy. The above summary is in compliance with College of Stateless Pathology (CAP) Cancer Protocols Checklist and Stateless Joint Committee on Cancer (AJCC), Staging Manual, 8th Ed. Immunohistochemistry ([id number]) supports the above diagnosis. Please make reference to previous specimen ([id number]) right prostate, apex, core biopsy and right prostate, mid, core biopsy with diagnosis of ?adenocarcinoma.? MICROSCOPIC DESCRIPTION Slides are reviewed. GROSS DESCRIPTION Received is one container labeled with the patient's name and designated prostate tissue. The specimen consists of multiple pieces of indurated tissue mixed with numerous blood clot weighing 47 gm and measuring 10 x 8 x 3 cm. Meat Market Manager tissue, predominantly soft tissue, is submitted in ten cassettes. 90% of the indurated tissue is submitted. / KIAN:jose 11/17/20 TC:0 CPT: 87082
--- NOTE | 2020-11-16 17:31 | PCM.OPRPT ---
Problems Associated Problem List Diagnoses (1) History of BPH: Report of Operation Date of Procedure: 11/16/20 Pre-Operative Diagnosis: BPH with obstruction and retention of urine Post-Operative Diagnosis: Same Surgery/Procedure Performed:: Transurethral section of prostate Description of Surgical Findings:: In the preoperative setting I discussed with the patient how the surgery would be done with expect afterwards. We discussed how a prostate resection is done and we discussed the risk of the surgery including, bleeding, infection, retrograde ejaculation, changes with ejaculation or intercourse,. We discussed the possibility that the resection of the prostate may not alleviate his urinary symptoms. We discussed the small risk of developing scar tissue along the urethral channel and strictures. We also discussed the chance of the prostate could grow back and he may need further surgery or treatment in the future for prostate problems. Patient was taken back to the operating room, timeout procedure was performed, he was identified and marked and placed on the operating room table. He underwent general anesthesia. He was placed in dorsolithotomy position. Penis and testicles were prepped and draped in usual sterile fashion. Went into the bladder using the visual obturator with a resectoscope. Once inside the bladder identified the right and left ureteral orifice. I then identified the prostate and the anatomy of the prostate. I marked out the area of the sphincter and the verumontanum was identified. I then proceeded with the prostate resection first resected the median lobe. And then resected the right lobe of the prostate. Then to resect the left lobe of the prostate. I then resected the apical tissue of the prostate. Made sure that there was no injury to the sphincter or the verumontanum was still intact. At the end of the resection all the chips were Ellik out of the bladder. I then identified the left and right ureteral orifice and these were confirmed to be in good position and effluxing and not injured. The resectoscope was removed, a 22 [place] Islander catheter was placed into the bladder on continuous irrigation. And the urine was fairly light pink color and draining normally. He was taken back to the PACU in good condition. Type of Anesthesia: General Drains: 24 fr conner Admit VTE Documentation VTE Present on Admission: No VTE Mechan Device Prophylaxis: SCD's
[2020-11-16] MEDS: Metoprolol Tartrate 25 MG Tablet 12.5 MG PO (21:25)
[2020-11-16] MEDS: Tamsulosin HCl 0.4 MG Capsule PO (21:25)
[2020-11-16] MEDS: Atorvastatin Calcium 80 MG Tablet PO (21:25)
[2020-11-16] MEDS: QUEtiapine 25 MG Tablet PO (23:57)
[2020-11-17] VITALS (7 sets, daily range): BP systolic 101–126; BP diastolic 68–84; PULSE 83–99; RESP 14–18; TEMP 36.5–37; O2SAT 93–97
--- NOTE | 2020-11-17 00:40 | NURSING ---
Bed exit sounded and staff went into room, patient confused, needing reorienting- unseccessful, wanting to go home. Patient assisted to lay back down in bed. Staff dialed daughters number so patient could speak with her, patient spoke with daughter briefly. instructional design technologist then recalled daughter, left message, no return call.
[2020-11-17] MEDS: Haloperidol Lactate 5 MG/ML Vial 3 MG IM (01:16)
--- NOTE | 2020-11-17 02:04 | NURSING ---
Patient set bed exit off again, staff went into room and found patient standing still attached to the CBI bag and conner. During this time patient disconnected self from CBI and conner connections, CBI fluid and urine leaking all over the patients floor. Patient stating that he wants to put the laundry in the wash, reoriented that he was at the hospital- unsuccessful. Staff trying to reorient patient again. Asking patient to get back into bed. Patient still refusing to get into bed. Grabbing onto the bathroom door and not letting go, becoming weaker. X2 staff assisting patient to stand. Bed moved closer to patient and patient put into bed. HEARING AID CONSULTANT on floor during this time and new order for Haldol received. Patient grabbing onto conner and penis stating he needs to urinate. This RN during this time reattached CBI and conner after cleaning ends with alcohol pads. Flow from CBI bag stopped and patient irrigated, 1 large clot irrigated. CBI reconnected and flow continued. Haldol verified and given per order via [place]re [place], staff holding patients arms- patient calm at this time. Patient covers adjusted, bed exit set, and lights turned off. Will continue to monitor.
--- NOTE | 2020-11-17 03:37 | NURSING ---
Patient continues to try to get out of bed, remains confused. Patient assisted into [facility] and sat out at [facility] at this time. Coffee and cookies given. Patient eating cookies. will continue to monitor.
--- NOTE | 2020-11-17 05:55 | PCM.PN.BLA ---
Progress Note s/p TURP Physical Exam Const alert and oriented x3 General Appearance: cooperative HEENT normocephalic, head/scalp atraumatic, EAC's normal and TM's normal bilaterally Eyes PERRL and EOMs intact bilaterally Pupil: sluggish Neck no lymphadenopathy, supple and no JVD General: trachea midline Lymph Lymphatic: no lymphadenopathy noted, lymphedema and lymphadenopathy Resp normal respiratory effort, normal air movement and clear to auscultation bilaterally Cardio regular rate, regular rhythm and peripheral pulses 2+ throughout GI soft to palpation, non-tender and non-distended Extremity normal capillary refill and no clubbing, cyanosis or edema General Extremity: no tenderness to palpation of joints or extremities Skin no rashes or lesions noted General Skin Exam: turgor normal Lesions: no lesions Rashes: no rashes Neuro CN's II-XII intact bilaterally Speech: speech normal Motor Exam: strength 5/5 throughout; Negative for general weakness Psych thought process normal, cooperative and affect normal Appearance: appropriate Assessment & Plan Assessment/Plan (1) Hematuria: QUALIFIERS: Hematuria type: gross Qualified Code(s): R31.0 - Gross hematuria PLAN: continue with bladder irrigation, plan to stop tomorrow
[2020-11-17] MEDS: Ceftriaxone 1 GM/50 ML BAG IV (10:39)
[2020-11-17] MEDS: Multivitamins,Therapeutic Tablet 1 TABLET PO (10:46)
[2020-11-17] MEDS: Finasteride 5 MG Tablet PO (10:47)
[2020-11-17] MEDS: Tamsulosin HCl 0.4 MG Capsule PO ×2 (10:47→22:17)
--- NOTE | 2020-11-17 16:54 | PCM.PN.HOSP ---
Subjective Subjective Patient was seen and examined. He underwent TURP, continuous bladder irrigation has clear urine. Denied any abdominal pain or dizziness. Objective Data Objective Data Vital Signs: Vital Signs Temp Pulse Resp BP Pulse Ox 97.7 F L 83 14 113/69 93 11/17/20 10:00 11/17/20 10:00 11/17/20 10:00 11/17/20 10:00 11/17/20 10:00 Oxygen Delivery Method Room Air Weight: 63.6 kg Body Mass Index (BMI) 19.0 Intake & Output: Intake and Output for Last 24 Hours 11/15/20 11/16/20 11/17/20 23:59 23:59 23:59 Intake Total 1433.50 / 1433.50 2331.67 / 2331.67 500 / 500 Output Total 29545 / 29155 9200 / 9200 2250 / 2250 Balance -9926.50 / -9926.50 -6868.33 / -6868.33 -1750 / -1750 Lab / Micro Data Result Diagrams: 11/16/20 06:22 11/16/20 06:22 Micro: Microbiology 11/15/20 16:55 Interface Orders SARS-CoV-2 Antigen (Rapid) - Final Physical Exam Narrative General: Alert, Oriented x3, Cooperative, No apparent distress, Well developed HEENT: Atraumatic Oral: Moist Mucosa Neck: Supple Lungs: Clear to auscultation Cardiovascular: HS I+II, regular, no murmurs Abdomen: Bowel Sounds Present, Soft, Non Tender, Law catheter has pablo red urine Extremities: No edema Skin: No rashes, No breakdown Neurological: Grossly intact Psych/Mental Status: Appropriate Assessment & Plan Assessment/Plan (1) Hematuria: QUALIFIERS: Hematuria type: gross Qualified Code(s): R31.0 - Gross hematuria (2) Acute blood loss anemia: (3) Nicotine dependence: QUALIFIERS: Nicotine product type: cigarettes Substance use status: uncomplicated Qualified Code(s): F17.210 - Nicotine dependence, cigarettes, uncomplicated (4) H/O ischemic left MCA stroke: PLAN: 1. Postop day #1 status post TURP, patient's appears relatively stable Continue per urology recommendation of continuous bladder irrigation Continue on finasteride, Flomax Continue to hold aspirin and Plavix Will discontinue IV ceftriaxone; start on cefdinir to aim for 1 week treatment 2. Acute blood loss anemia secondary to #1, appears stable Repeat blood work in a.m. Will continue to monitor; will transfuse less than 8 g/dL 3. History of ischemic left MCA stroke, aspirin and Plavix on hold on account of #1 4. Rest of chronic medical conditions including hypertension, hyperlipidemia, dementia all remained stable, medications have been continued Visit Charges Inpatient E&M: 50898 Subs Hosp L2
[2020-11-17] MEDS: Atorvastatin Calcium 80 MG Tablet PO (22:17)
[2020-11-17] MEDS: QUEtiapine 25 MG Tablet PO (22:17)
[2020-11-17] MEDS: Cefdinir 300 MG Capsule PO (22:17)
[2020-11-17] MEDS: Metoprolol Tartrate 25 MG Tablet 12.5 MG PO (22:18)
[2020-11-17] MEDS: 0.9% Saline Lock 10 ML Syringe IV (22:20)
[2020-11-18] VITALS (11 sets, daily range): BP systolic 97–148; BP diastolic 61–83; PULSE 80–87; RESP 16–18; TEMP 36.6–37.6; O2SAT 95–99
[2020-11-18] MEDS: Haloperidol Lactate 5 MG/ML Vial 2 MG IM (03:34)
[2020-11-18 07:17] LABS: Absolute Lymphocyte Count 0.52 X10^3/uL (0.83-4.51); Absolute Neutrophil Count 6.7 X10^3/uL (2.0-7.7); Basophil# 0.02 X10^3/uL; Basophil% 0.2 % (0-1); Eosinophil# 0.28 X10^3/uL; Eosinophils% 3.4 % (0-5); Hematocrit 24.9 % (40-54); Hemoglobin 7.6 g/dL (13.0-16.5); Lymphocyte # 0.52 X10^3/ul (0.83-4.51); Lymphocyte % 6.4 % (19-41); Mean Corp Hgb Conc 30.5 g/dL (32-36); Mean Corpuscular Hgb 27.3 pg (27.0-32.0); Mean Corpuscular Volume 89.6 fL (80-94); Mean Platelet Vol. 10.3 fl (6.2-12.0); Monocyte% 7.3 % (0-10); NRBC Flagged by Analyzer 0 % (0-5); Neutrophil # 6.73 X10^3/uL (2.7-7.7); Neutrophil % 82.3 % (47-70); POSITIVE DIFFERENTIAL YES; Platelet Count 226 K/mm3 (150-450); RBC Distribution Width CV 13.1 % (11.6-14.6); RBC Distribution Width SD 42.7 fl (35.1-43.9); Red Blood Count 2.78 M/mm3 (4.6-6.2); White Blood Count 8.2 K/mm3 (4.4-11.0)
--- NOTE | 2020-11-18 07:23 | PCM.PN.BLA ---
Progress Note Status post TURP Physical Exam Const alert and oriented x3 General Appearance: cooperative HEENT normocephalic, head/scalp atraumatic, EAC's normal and TM's normal bilaterally Eyes PERRL and EOMs intact bilaterally Pupil: sluggish Neck no lymphadenopathy, supple and no JVD General: trachea midline Lymph Lymphatic: no lymphadenopathy noted, lymphedema and lymphadenopathy Resp normal respiratory effort, normal air movement and clear to auscultation bilaterally Cardio regular rate, regular rhythm and peripheral pulses 2+ throughout GI soft to palpation, non-tender and non-distended Extremity normal capillary refill and no clubbing, cyanosis or edema General Extremity: no tenderness to palpation of joints or extremities Skin no rashes or lesions noted General Skin Exam: turgor normal Lesions: no lesions Rashes: no rashes Neuro CN's II-XII intact bilaterally Speech: speech normal Motor Exam: strength 5/5 throughout; Negative for general weakness Psych thought process normal, cooperative and affect normal Appearance: appropriate Assessment & Plan Assessment/Plan (1) History of BPH: PLAN: DC Law today stop CBI we will remove the catheter for voiding trial.
[2020-11-18 07:24] LABS: Differential Indicated SCAN CRITERIA MET
[2020-11-18 07:41] LABS: Differential Comment SCANNED
[2020-11-18 07:43] LABS: ALB/GLOB Ratio 0.8 RATIO (0.9-2.4); AST(SGOT) 28 U/L (15-37); Alanine Aminotransfer ALT/SGPT 21 U/L (16-61); Albumin, Serum 2.5 g/dL (3.2-5.0); Alkaline Phosphatase 58 U/L (45-117); Anion Gap 3 (5-15); BUN 11 mg/dL (7-18); BUN/Creat Ratio 12.9 RATIO (10-20); Chloride 111 mmol/L (98-107); Creatinine, Serum 0.85 mg/dL (0.70-1.30); EST Glomerular Filtration Rate 92 mL/min (>60); Est Glom Filt Rate - Afr Amer 112 mL/min (>60); Estimated Creatinine Clearance 64.43 ml/min; Globulin 3.3 g/dL (2.2-4.2); Glucose 103 mg/dL (74-106); Potassium 3.6 mmol/L (3.5-5.1); Protein, Total 5.8 g/dL (6.4-8.2); Sodium Level 142 mmol/L (136-145)
--- NOTE | 2020-11-18 08:09 | NURSING ---
Lab here getting Blood for Type and Screen. Pt still slightly confused. Pt knew his name, that he was in a hospital but did not know the month. Pt did know the year. This nurse had Betzy, his daughter in law sign for the consent.
[2020-11-18] MEDS: Tamsulosin HCl 0.4 MG Capsule PO ×2 (08:21→20:36)
[2020-11-18] MEDS: Multivitamins,Therapeutic Tablet 1 TABLET PO (08:21)
[2020-11-18] MEDS: Cefdinir 300 MG Capsule PO ×2 (08:22→20:36)
[2020-11-18] MEDS: Finasteride 5 MG Tablet PO (08:22)
--- NOTE | 2020-11-18 11:18 | NURSING ---
1 unit of PRBC started at [facility] at this time. This nurse in room with this pt at this time.
--- NOTE | 2020-11-18 11:47 | NURSING ---
Iv went bad after the first 15 min of PRBC infusing. This nurse took out old IV site and put new one in and restarted the blood to run at [facility] for 15 min.
--- NOTE | 2020-11-18 16:01 | PCM.PN.HOSP ---
Subjective Subjective Patient was seen and examined. He denies any new complaints. Given his slight pain. Denies any chest pain or dizziness. He will be transfused the 1 pack RBC today Objective Data Objective Data Vital Signs: Vital Signs Temp Pulse Resp BP Pulse Ox 98.3 F 84 18 129/73 H 95 11/18/20 15:30 11/18/20 15:30 11/18/20 13:30 11/18/20 15:30 11/18/20 15:30 Oxygen Delivery Method Room Air Weight: 63.6 kg Body Mass Index (BMI) 19.0 Intake & Output: Intake and Output for Last 24 Hours 11/16/20 11/17/20 11/18/20 23:59 23:59 23:59 Intake Total 2331.67 / 2331.67 775 / 775 700 / 700 Output Total 9200 / 9200 3525 / 3525 1150 / 1150 Balance -6868.33 / -6868.33 -2750 / -2750 -450 / -450 Lab / Micro Data Result Diagrams: 11/18/20 06:35 11/18/20 06:35 Labs: Laboratory Results - last 24 hr 11/18/20 11/18/20 11/18/20 06:35 06:35 08:10 WBC 8.2 RBC 2.78 L Hgb 7.6 L Hct 24.9 L MCV 89.6 MCH 27.3 MCHC 30.5 L RDW Std Deviation 42.7 RDW Coeff of Kirsten 13.1 Plt Count 226 MPV 10.3 Immature Gran % (Auto) 0.400 Neut % (Auto) 82.3 H Lymph % (Auto) 6.4 L [place] % (Auto) 7.3 Eos % (Auto) 3.4 Baso % (Auto) 0.2 Absolute Neuts (auto) 6.7 Absolute Lymphs (auto) 0.52 L Nucleated RBC % 0 Differential Comment SCANNED Sodium 142 Potassium 3.6 Chloride 111 H Carbon Dioxide 28.0 Anion Gap 3 L BUN 11 Creatinine 0.85 Estim Creat Clear Calc 64.43 Est GFR (MDRD) Af Amer 112 Est GFR (MDRD) Non-Af 92 BUN/Creatinine Ratio 12.9 Glucose 103 Calcium 8.0 L Total Bilirubin 0.40 AST 28 ALT 21 Alkaline Phosphatase 58 Total Protein 5.8 L Albumin 2.5 L Globulin 3.3 Albumin/Globulin Ratio 0.8 L Blood Type A NEGATIVE Antibody Screen NEGATIVE Crossmatch See Detail Micro: Microbiology 11/15/20 16:55 Interface Orders SARS-CoV-2 Antigen (Rapid) - Final Physical Exam Narrative General: Alert, Oriented x3, Cooperative, No apparent distress, Well developed HEENT: Atraumatic Oral: Moist Mucosa Neck: Supple Lungs: Clear to auscultation Cardiovascular: HS I+II, regular, no murmurs Abdomen: Bowel Sounds Present, Soft, Non Tender, Law catheter has pablo red urine Extremities: No edema Skin: No rashes, No breakdown Neurological: Grossly intact Psych/Mental Status: Appropriate GI normal to inspection, nondistended, normoactive bowel sounds Assessment & Plan Assessment/Plan (1) Hematuria: QUALIFIERS: Hematuria type: gross Qualified Code(s): R31.0 - Gross hematuria (2) Acute blood loss anemia: (3) Nicotine dependence: QUALIFIERS: Nicotine product type: cigarettes Substance use status: uncomplicated Qualified Code(s): F17.210 - Nicotine dependence, cigarettes, uncomplicated (4) H/O ischemic left MCA stroke: PLAN: 1. Postop day #2 status post TURP, patient's appears relatively stable Law catheter discontinued by urology Continue on finasteride, Flomax Continue to hold aspirin and Plavix Continue on cefdinir to aim for 1 week treatment 2. Acute blood loss anemia secondary to #1, hemoglobin 7.6, will transfuse 1 unit packed RBC Repeat blood work in a.m. Will continue to monitor 3. History of ischemic left MCA stroke, aspirin and Plavix on hold on account of #1 4. Rest of chronic medical conditions including hypertension, hyperlipidemia, dementia all remained stable, medications have been continued Visit Charges Inpatient E&M: 84830 Subs Hosp L2
[2020-11-18 19:07] LABS: Hemoglobin 9.6 g/dL (13.0-16.5)
[2020-11-18] MEDS: Atorvastatin Calcium 80 MG Tablet PO (20:36)
[2020-11-18] MEDS: QUEtiapine 25 MG Tablet PO (20:36)
[2020-11-18] MEDS: Metoprolol Tartrate 25 MG Tablet 12.5 MG PO (20:37)
[2020-11-19 06:04] VITALS: BP 115/61; PULSE 73; RESP 16; TEMP 36.5; O2SAT 100
[2020-11-19 06:45] LABS: Absolute Lymphocyte Count 0.61 X10^3/uL (0.83-4.51); Absolute Neutrophil Count 6.1 X10^3/uL (2.0-7.7); Basophil# 0.03 X10^3/uL; Basophil% 0.4 % (0-1); Eosinophil# 0.44 X10^3/uL; Eosinophils% 5.6 % (0-5); Hematocrit 31.4 % (40-54); Hemoglobin 9.8 g/dL (13.0-16.5); Lymphocyte # 0.61 X10^3/ul (0.83-4.51); Lymphocyte % 7.7 % (19-41); Mean Corp Hgb Conc 31.2 g/dL (32-36); Mean Corpuscular Hgb 28.2 pg (27.0-32.0); Mean Corpuscular Volume 90.5 fL (80-94); Mean Platelet Vol. 10.2 fl (6.2-12.0); Monocyte# 0.69 X10^3/uL; Monocyte% 8.8 % (0-10); NRBC Flagged by Analyzer 0 % (0-5); Neutrophil # 6.06 X10^3/uL (2.7-7.7); Neutrophil % 76.9 % (47-70); Platelet Count 250 K/mm3 (150-450); RBC Distribution Width CV 13.5 % (11.6-14.6); RBC Distribution Width SD 44.6 fl (35.1-43.9); Red Blood Count 3.47 M/mm3 (4.6-6.2); White Blood Count 7.9 K/mm3 (4.4-11.0)
[2020-11-19 07:13] LABS: ALB/GLOB Ratio 0.7 RATIO (0.9-2.4); AST(SGOT) 43 U/L (15-37); Alanine Aminotransfer ALT/SGPT 37 U/L (16-61); Albumin, Serum 2.4 g/dL (3.2-5.0); Alkaline Phosphatase 66 U/L (45-117); Anion Gap 3 (5-15); BUN 9 mg/dL (7-18); BUN/Creat Ratio 9.8 RATIO (10-20); Calcium,Total 8.3 mg/dL (8.5-10.1); Chloride 109 mmol/L (98-107); Creatinine, Serum 0.92 mg/dL (0.70-1.30); EST Glomerular Filtration Rate 84 mL/min (>60); Est Glom Filt Rate - Afr Amer 102 mL/min (>60); Estimated Creatinine Clearance 59.53 ml/min; Globulin 3.5 g/dL (2.2-4.2); Glucose 110 mg/dL (74-106); Protein, Total 5.9 g/dL (6.4-8.2); Sodium Level 142 mmol/L (136-145)
[2020-11-19] MEDS: Tamsulosin HCl 0.4 MG Capsule PO (08:03)
[2020-11-19] MEDS: Cefdinir 300 MG Capsule PO (08:03)
[2020-11-19] MEDS: Finasteride 5 MG Tablet PO (08:03)
[2020-11-19] MEDS: Multivitamins,Therapeutic Tablet 1 TABLET PO (08:03)
--- NOTE | 2020-11-19 08:33 | PCM.PN.GU ---
Subjective Subjective s/p TURP Objective Data Objective Data Vital Signs: Vital Signs Temp Pulse Resp BP Pulse Ox 97.7 F L 73 16 115/61 100 11/19/20 06:04 11/19/20 06:04 11/19/20 06:04 11/19/20 06:04 11/19/20 06:04 Oxygen Delivery Method Room Air Weight: 63.6 kg Body Mass Index (BMI) 19.0 Intake & Output: Intake and Output for Last 24 Hours 11/17/20 11/18/20 11/19/20 23:59 23:59 23:59 Intake Total 775 / 775 700 / 700 Output Total 3525 / 3525 1400 / 1570 470 / 470 Balance -2750 / -2750 -700 / -870 -470 / -470 Lab / Micro Data Result Diagrams: 11/19/20 06:25 11/19/20 06:25 Labs: Laboratory Results - last 24 hr 11/18/20 11/18/20 11/19/20 08:10 18:23 06:25 WBC 7.9 RBC 3.47 L Hgb 9.6 L 9.8 L Hct 31.4 L MCV 90.5 MCH 28.2 MCHC 31.2 L RDW Std Deviation 44.6 H RDW Coeff of Kirsten 13.5 Plt Count 250 MPV 10.2 Immature Gran % (Auto) 0.600 Neut % (Auto) 76.9 H Lymph % (Auto) 7.7 L [place] % (Auto) 8.8 Eos % (Auto) 5.6 H Baso % (Auto) 0.4 Absolute Neuts (auto) 6.1 Absolute Lymphs (auto) 0.61 L Nucleated RBC % 0 Sodium Potassium Chloride Carbon Dioxide Anion Gap BUN Creatinine Estim Creat Clear Calc Est GFR (MDRD) Af Amer Est GFR (MDRD) Non-Af BUN/Creatinine Ratio Glucose Calcium Total Bilirubin AST ALT Alkaline Phosphatase Total Protein Albumin Globulin Albumin/Globulin Ratio Blood Type A NEGATIVE Antibody Screen NEGATIVE Crossmatch See Detail 11/19/20 06:25 WBC RBC Hgb Hct MCV MCH MCHC RDW Std Deviation RDW Coeff of Kirsten Plt Count MPV Immature Gran % (Auto) Neut % (Auto) Lymph % (Auto) [place] % (Auto) Eos % (Auto) Baso % (Auto) Absolute Neuts (auto) Absolute Lymphs (auto) Nucleated RBC % Sodium 142 Potassium 4.0 Chloride 109 H Carbon Dioxide 30.0 Anion Gap 3 L BUN 9 Creatinine 0.92 Estim Creat Clear Calc 59.53 Est GFR (MDRD) Af Amer 102 Est GFR (MDRD) Non-Af 84 BUN/Creatinine Ratio 9.8 L Glucose 110 H Calcium 8.3 L Total Bilirubin 0.40 AST 43 H ALT 37 Alkaline Phosphatase 66 Total Protein 5.9 L Albumin 2.4 L Globulin 3.5 Albumin/Globulin Ratio 0.7 L Blood Type Antibody Screen Crossmatch Micro: Microbiology 11/15/20 16:55 Interface Orders SARS-CoV-2 Antigen (Rapid) - Final Assessment & Plan Assessment/Plan (1) Hematuria: QUALIFIERS: Hematuria type: gross Qualified Code(s): R31.0 - Gross hematuria PLAN: once stable can d/c home conner out and has been voiding.
--- NOTE | 2020-11-19 08:52 | PCM.DC.SUM ---
Providers Date of Admission: 11/15/20 Date of Discharge: 11/19/20 Primary Care Physician: Dr. Memo Richards MD Consultations 11/15/20 08:45 Consult: Urology Routine Consulting Provider: Krish Montiel Reason for Consult: urinary obstruction EMERGENT Consult: No MD Notified: Yes Date Notified:: 11/15/20 Time Notified: 08:50 Method of Notification: Page Reason For Visit: URINARY OBSTRUCTION Diagnosis Discharge Diagnosis (1) Hematuria: Status: Resolved Code(s): R31.9 - Hematuria, unspecified Qualifiers: Hematuria type: gross Qualified Code(s): R31.0 - Gross hematuria (2) Acute blood loss anemia: Status: Acute Code(s): D62 - Acute posthemorrhagic anemia (3) Dementia: Status: Chronic Code(s): F03.90 - Unspecified dementia without behavioral disturbance Qualifiers: Dementia behavioral disturbance: without behavioral disturbance Dementia type: unspecified type Qualified Code(s): F03.90 - Unspecified dementia without behavioral disturbance (4) Hyponatremia: Status: Resolved Code(s): E87.1 - Hypo-osmolality and hyponatremia Medications at Discharge Home Medications tamsulosin 0.4 mg PO BID 12/19/13 therapeutic multivitamin 1 tab PO DAILY 08/31/19 finasteride 5 mg tablet 5 mg PO DAILY 01/14/20 atorvastatin 80 mg tablet 80 mg PO QHS #90 tab 08/04/20 metoprolol tartrate 25 mg tablet 12.5 mg PO QHS #45 tab 08/04/20 cefdinir 300 mg PO Q12 4 Days #8 cap 11/18/20 Hospital Course Operations TURP (11/16/20) Procedures Blood transfusion Summary of Care Provided Minutes Spent on Discharge: 45 Hospital Course: 80y.o male with PMHx of dementia, BPH, status post Law catheter, follows with Dr. Lopez in the outpatient. Patient has recent history of recurrent clots and obstruction of the Law catheter. Patient presented with gross hematuria. There was outpatient plan for checkup a week later. He was admitted and managed on IV fluids, continue bladder irrigation. Urology was consulted. Patient underwent TURP on 11/16/20. He was managed also on IV antibiotics. His hemoglobin was trended; dropped from 13.1 to 7.6. He was transfused 1 unit of packed RBC. His hemoglobin at discharge was 9.8. Patient's Law catheter was removed on 11/18/20. He was able to void without difficulty. Patient will be followed up by urology in the outpatient. He was discharged on cefdinir to complete 1 week treatment. During this hospital stay, patient had episodes of confusion. He was alert oriented x3 at discharge. ABG / Lab / Microbiology Data Result Diagrams: 11/19/20 06:25 11/19/20 06:25 Laboratory: Laboratory Results - last 24 hr 11/18/20 11/18/20 11/19/20 08:10 18:23 06:25 WBC 7.9 RBC 3.47 L Hgb 9.6 L 9.8 L Hct 31.4 L MCV 90.5 MCH 28.2 MCHC 31.2 L RDW Std Deviation 44.6 H RDW Coeff of Kirsten 13.5 Plt Count 250 MPV 10.2 Immature Gran % (Auto) 0.600 Neut % (Auto) 76.9 H Lymph % (Auto) 7.7 L [place] % (Auto) 8.8 Eos % (Auto) 5.6 H Baso % (Auto) 0.4 Absolute Neuts (auto) 6.1 Absolute Lymphs (auto) 0.61 L Nucleated RBC % 0 Sodium Potassium Chloride Carbon Dioxide Anion Gap BUN Creatinine Estim Creat Clear Calc Est GFR (MDRD) Af Amer Est GFR (MDRD) Non-Af BUN/Creatinine Ratio Glucose Calcium Total Bilirubin AST ALT Alkaline Phosphatase Total Protein Albumin Globulin Albumin/Globulin Ratio Blood Type A NEGATIVE Antibody Screen NEGATIVE Crossmatch See Detail 11/19/20 06:25 WBC RBC Hgb Hct MCV MCH MCHC RDW Std Deviation RDW Coeff of Kirsten Plt Count MPV Immature Gran % (Auto) Neut % (Auto) Lymph % (Auto) [place] % (Auto) Eos % (Auto) Baso % (Auto) Absolute Neuts (auto) Absolute Lymphs (auto) Nucleated RBC % Sodium 142 Potassium 4.0 Chloride 109 H Carbon Dioxide 30.0 Anion Gap 3 L BUN 9 Creatinine 0.92 Estim Creat Clear Calc 59.53 Est GFR (MDRD) Af Amer 102 Est GFR (MDRD) Non-Af 84 BUN/Creatinine Ratio 9.8 L Glucose 110 H Calcium 8.3 L Total Bilirubin 0.40 AST 43 H ALT 37 Alkaline Phosphatase 66 Total Protein 5.9 L Albumin 2.4 L Globulin 3.5 Albumin/Globulin Ratio 0.7 L Blood Type Antibody Screen Crossmatch Microbiology: Microbiology 11/15/20 16:55 Interface Orders SARS-CoV-2 Antigen (Rapid) - Final D/C Instructions Discharge Diet: 2000 mg Sodium Diet Discharge Activity: Return to Normal Activity Please Follow Up With: Memo Richards MD Meaningful Use Info Meaningful Use Diagnoses (Choose all that apply): None applicable Discharge Plan Admission Admit Date/Time: 11/15/20 13:01 Primary Reason for Your Visit: Acute hematuria Attending Provider: Corrie Wolfe Primary Care Provider: Memo Richards Consulting Providers: Krish Montiel Instructions Additional Instructions / Restrictions: Continue to hold off on taking aspirin and Plavix. Follow-up with Dr. Montiel. Discharge Orders/Prescriptions Prescriptions: New cefdinir 300 mg Capsule 300 mg PO Q12 4 Days Qty: 8 RF: 0 Continued finasteride 5 mg tablet 5 mg PO DAILY RF: 0 metoprolol tartrate 25 mg tablet 12.5 mg PO QHS Qty: 45 RF: 3 atorvastatin 80 mg tablet 80 mg PO QHS Qty: 90 RF: 3 tamsulosin 0.4 MG capsule 0.4 mg PO BID RF: 0 therapeutic multivitamin 1 EACH tablet 1 tab PO DAILY RF: 0 Discontinued aspirin [Adult Aspirin Regimen] 81 mg tablet,delayed release (DR/EC) 81 mg PO DAILY RF: 0 clopidogrel 75 mg tablet 75 mg PO DAILY Qty: 90 RF: 3 Referrals / Follow Up: Memo Richards MD [Primary Care Provider] - Krish Montiel MD [STAFF PHYSICIAN] - See Referral Note (as scheduled ) Disposition Disposition (needs filled in before D/C Order can be placed): Home, self care Visit Charges Inpatient E&M: 36747 Disch Hosp
[2020-11-19 10:59] VITALS: BP 123/74; BP 135/80; BP 141/74; PULSE 77; PULSE 84; PULSE 89
[2020-11-19 11:10] VITALS: BP 135/80; PULSE 89; RESP 18; TEMP 36.4; O2SAT 99
--- NOTE | 2020-11-21 15:18 | CASEMGMT ---
JASE DENT Discharge Follow-up Phone Call: BERNARDO: Shani Strata: 3 Call Date: 11/21/20 Discharge Date: 11/19/20 Time of Call: 1515 Duration: 3 min Admitting Diagnosis: Urinary obstruction JASE DENT completed follow-up phone call after recent hospitalization. Patient states he is doing well. Patient states he had no questions or concerns regarding discharge instructions. Patient was able to fill prescriptions without any issues. Patient states his daughter is taking care of follow-up appts. Patient had no further questions or concerns at this time.
== END 2020-11-19 11:55 | disposition home or self-care (01) | DRG 713 ==
LOC: ED 11-15 03:39 → ICU 11-15 04:41 → MS3 11-15 18:00
PROVIDERS: Urology; Admitting Provider Family Medicine; Emergency Provider Emergency Medicine; PCP Family Medicine; Visit Provider Internal Medicine
PROC: 0VT08ZZ Resection of Prostate, Via Natural or Artificial Opening Endoscopic (ICD-10-PCS; CPT 52601; principal; 2020-11-16 16:00)
DX: N40.1 Benign prostatic hyperplasia with lower urinary tract symptoms (principal); D62 Acute posthemorrhagic anemia; E87.1 Hypo-osmolality and hyponatremia; R31.0 Gross hematuria; N13.9 Obstructive and reflux uropathy, unspecified; F03.90 Unspecified dementia, unspecified severity, without behavioral disturbance, psychotic disturbance, mood disturbance, and anxiety; R33.8 Other retention of urine; E78.5 Hyperlipidemia, unspecified; I48.0 Paroxysmal atrial fibrillation; I10 Essential (primary) hypertension; Z95.1 Presence of aortocoronary bypass graft; Z95.3 Presence of xenogenic heart valve; F17.211 Nicotine dependence, cigarettes, in remission; Z86.73 Personal history of transient ischemic attack (TIA), and cerebral infarction without residual deficits; Z79.82 Long term (current) use of aspirin; Z79.02 Long term (current) use of antithrombotics/antiplatelets; I25.10 Atherosclerotic heart disease of native coronary artery without angina pectoris; I35.0 Nonrheumatic aortic (valve) stenosis
CPT/HCPCS: 36415; 51702; 80048; 80053; 85018; 85025; 85610; 86850; 86900; 86901; 86920; 86922; 87426; 88305; 88341; 88342; 93005; 99285; J7030; J7040; J7050; P9016; A4216; J2405

== ENCOUNTER 2021-01-23 05:24 | Emergency (ER) | payer MEDICARE, BC, SELFPAY ==
[2020-11-16 15:10] VITALS: BMI 19.0
[2021-01-23 05:25] VITALS: BP 176/104; PULSE 79; RESP 16; TEMP 36.6; O2SAT 99; BMI 19.5
--- NOTE | 2021-01-23 05:48 | EX.ED.GUMALE ---
HPI History of Present Illness Chief Complaint: Complaint Informant: patient and family Pain Onset: Yesterday Context: Gradual Onset Timing: Continuous Current Severity: Mild Maximum Severity: Mild Appearance Lesion(s): No Genital Edema: No Narrative Narrative: 80-year-old male history of prostate cancer which he chose not to treat. He has had a prior TURP procedure done. Has had difficulty urinating last 1 to 2 days. Small amount of blood. He is on Plavix and aspirin due to history of cardiac disease, prior CABG and a valve replaced. He denies abdominal pain, nausea or vomiting. He denies any fever. Prior similar symptoms: Yes Recent Illness/Hospitalization: No PFSH PFSH Medical History Aortic stenosis, severe Delirium due to another medical condition H/O ischemic left MCA stroke Heart attack Hemothorax, left History of BPH History of hypertension History of prostate cancer History of rheumatic fever Hyperlipidemia Hyponatremia Left ventricular hypertrophy Multi-vessel coronary artery stenosis Normochromic normocytic anemia Paroxysmal atrial fibrillation Pneumothorax, right Presbycusis of both ears QT prolongation Rheumatic fever Severe protein-calorie malnutrition Thrombocytosis Tobacco dependence in remission Urine retention Home Medications tamsulosin 0.4 mg PO BID 12/19/13 [History Last Taken 07/14/19] therapeutic multivitamin 1 tab PO DAILY 08/31/19 [History Last Taken Unknown] finasteride 5 mg tablet 5 mg PO DAILY 01/14/20 [History Last Taken Unknown] atorvastatin 80 mg tablet 80 mg PO QHS #90 tab 08/04/20 [Rx Last Taken Unknown] metoprolol tartrate 25 mg tablet 12.5 mg PO QHS #45 tab 08/04/20 [Rx Last Taken Unknown] cefdinir 300 mg PO Q12 4 Days #8 cap 11/18/20 [Rx Last Taken Unknown] Allergy/AdvReac Type Severity Reaction Status Date / Time No Known Allergies Allergy Verified 01/23/21 05:28 Family History Father Myocardial infarction Surgical History H/O local excision of skin lesion History of aortic valve replacement with bioprosthetic valve History of left heart catheterization (07/16/19) S/P CABG x 3 Social History Smoking Status: Former smoker Tobacco: How many years used: 5 how long ago did patient quit smokin+ years alcohol intake: never substance use type: does not use caffeine: Yes Type: coffee Number of servings: 1 ROS ROS ED ROS Narrative Denies recent symptoms of difficulty urinating. Review of Systems ROS Unobtainable: Denies due to encephalopathy Constitutional Constitutional ED: Denies chills or fever(s) Eyes Eyes: Denies change in vision ENT ENT ED: Denies ear pain or sore throat Cardiovascular Cardiovascular: Denies chest pain Respiratory/Chest Respiratory/Chest: Denies cough or dyspnea Gastrointestinal Gastrointestinal: Denies abdominal pain, nausea or vomiting Genitourinary Genitourinary ED: Reports hematuria; Denies dysuria Musculoskeletal Musculoskeletal: Denies myalgias Integumentary Denies rash Neurologic Neurologic: Denies headache(s) Psychiatric Psychiatric: Denies depression Endocrine Endocrinology: Denies polyuria Hematologic/Lymphatic Hematologic/Lymphatic: Denies easy bruising Allergic/Immunologic Allergic/Immunologic ED: Denies urticaria EXAM Physical Exam Narrative Exam Narrative: Well-appearing older male. Vital signs stable afebrile. Lungs are clear. Heart regular rhythm. Abdomen soft. Nontender nondistended. Nurses already placed a Law catheter and he put out about 400 cc of bloody urine. No peritoneal signs. Moving all 4 extremities. No edema. Neurologically is awake and alert moving all 4 extremities. Const Vital Signs: 01/23/21 05:25 Temperature 97.8 F Temperature Source Oral Pulse Rate 79 Respiratory Rate 16 Blood Pressure 176/104 H Blood Pressure Mean 128 Pulse Ox 99 Oxygen Delivery Method Room Air Positive well nourished and well developed General Appearance ED: well developed and NAD HEENT Reports moist mucous membranes normocephalic and atraumatic; Negative for trauma or tenderness Eyes PERRL and EOMs intact bilaterally Neck no lymphadenopathy, supple and no JVD General: Negative for tenderness Resp normal respiratory effort Auscultation: Negative for rales, rhonchi or wheezes GI non-tender, non-distended and no masses GI Narrative: Nontender and nondistended. Examined after the Law catheter was placed. Auscultation: normoactive bowel sounds Palpation: soft Rectal Exam: Negative for tenderness no CVA tenderness Extremity normal to inspection General Extremety ED: Negative for edema or tenderness General Extremity: Negative for edema Neuro oriented x3, CN's II-XII intact bilaterally and moves all extremities Sensorium / Orientation: alert, oriented to person, oriented to place and oriented to time Psych mental status grossly normal Skin Lesions: no lesions Rashes: no rashes MDM MDM MDM Narrative Medical decision making narrative: Patient with cellular retention most likely from gross hematuria. Nurse initially placed a 16 Hebrew Law catheter she will change it to a 22. This will be irrigated. Labs are being sent. Patient will eventually be discharged and follow-up with urology. Repeat exam patient is doing well at 6:25 AM. Lab Data Attestation: I reviewed the patient's lab results. Lab results narrative: CBC White count 9. Hemoglobin 11.9. Urine shows blood and greater than 100 red cells but no signs of infection no bacteria no nitrites and no white cells. Chemistries unremarkable gap of 5. Creatinine 1.1. Patient will be treated as gross hematuria causing urinary retention and discharged home with outpatient follow-up. Labs: Laboratory Results - last 24 hr 01/23/21 01/23/21 01/23/21 05:44 06:05 06:05 WBC 9.7 RBC 4.26 L Hgb 11.9 L Hct 39.1 L MCV 91.8 MCH 27.9 MCHC 30.4 L RDW Std Deviation 44.2 H RDW Coeff of Kirsten 13.2 Plt Count 209 MPV 10.8 Sodium 140 Potassium 4.0 Chloride 107 Carbon Dioxide 28.0 Anion Gap 5 BUN 14 Creatinine 1.13 Estim Creat Clear Calc 49.76 Est GFR (MDRD) Af Amer 81 Est GFR (MDRD) Non-Af 67 BUN/Creatinine Ratio 12.4 Glucose 136 H Calcium 8.9 Urine Color Red Urine Clarity Sl. Cloudy Urine pH 7.0 Ur Specific [place] 1.010 Urine Protein 500 H Urine Glucose (UA) 50 H Urine Ketones Negative Urine Occult Blood 250 H Urine Nitrite Negative Urine Bilirubin Negative Urine Urobilinogen Normal Ur Leukocyte Esterase Negative Urine RBC > 100 SEEN Urine WBC 0 SEEN Ur Squamous Epith Cells 0 SEEN Urine Bacteria 0 SEEN Urine Mucus 0 SEEN Discharge Plan Triage Chief Complaint: Complaint ED Provider: Skip Moulton Dx/Rx/DC Orders Clinical Impression: Acute urinary retention, Gross hematuria Instructions: ED Urinary Retention, Male Prescriptions: No Action finasteride 5 mg tablet 5 mg PO DAILY RF: 0 metoprolol tartrate 25 mg tablet 12.5 mg PO QHS Qty: 45 RF: 3 atorvastatin 80 mg tablet 80 mg PO QHS Qty: 90 RF: 3 tamsulosin 0.4 MG capsule 0.4 mg PO BID RF: 0 therapeutic multivitamin 1 EACH tablet 1 tab PO DAILY RF: 0 cefdinir 300 mg Capsule 300 mg PO Q12 4 Days Qty: 8 RF: 0 Primary Care Provider: Memo Richards Referrals: Memo Richards MD [Primary Care Provider] - Krish Montiel MD [STAFF PHYSICIAN] - As soon as possible Activity Restrictions/Additional Instructions: Continue your current medications. Plenty of water. Follow-up with Dr. Montiel to determine when they can take out your Law catheter. Call his office today and make an appointment this week. If the bleeding gets a lot worse you need to be evaluated sooner. Disposition Disposition: Home, Self Care
[2021-01-23 05:54] LABS: Bacteria 0 SEEN /hpf (None Seen); Mucous, Urine 0 SEEN /hpf (<or=2+); Squamous Epithelial Cells - UA 0 SEEN /hpf (0-5); White Blood Cells 0 SEEN /hpf (0-5)
[2021-01-23 06:01] LABS: Color, Urine Red (Yellow); Glucose, Dipstick 50 mg/dl (Normal); Ketone-Dipstick Negative (Negative); Leukocyte Esterase-Dipstick Negative /ul (Negative); Nitrite-Dipstick Negative (Negative); Occult Blood-Urine 250 /ul (Negative); Protein-Dipstick 500 mg/dl (Negative); Urine Bilirubin Dipstick Negative (Negative); Urine Clarity Sl. Cloudy (Clear); Urine Urobilinogen Normal (Normal)
[2021-01-23 06:03] LABS: Red Blood Cells-Urine > 100 SEEN /hpf (0-5)
[2021-01-23 06:12] LABS: Hematocrit 39.1 % (40-54); Hemoglobin 11.9 g/dL (13.0-16.5); Mean Corp Hgb Conc 30.4 g/dL (32-36); Mean Corpuscular Hgb 27.9 pg (27.0-32.0); Mean Corpuscular Volume 91.8 fL (80-94); Mean Platelet Vol. 10.8 fl (6.2-12.0); Platelet Count 209 K/mm3 (150-450); RBC Distribution Width CV 13.2 % (11.6-14.6); RBC Distribution Width SD 44.2 fl (35.1-43.9); Red Blood Count 4.26 M/mm3 (4.6-6.2); White Blood Count 9.7 K/mm3 (4.4-11.0)
[2021-01-23 06:25] LABS: Anion Gap 5 (5-15); BUN 14 mg/dL (7-18); BUN/Creat Ratio 12.4 RATIO (10-20); Calcium,Total 8.9 mg/dL (8.5-10.1); Chloride 107 mmol/L (98-107); Creatinine, Serum 1.13 mg/dL (0.70-1.30); EST Glomerular Filtration Rate 67 mL/min (>60); Est Glom Filt Rate - Afr Amer 81 mL/min (>60); Estimated Creatinine Clearance 49.76 ml/min; Glucose 136 mg/dL (74-106); Sodium Level 140 mmol/L (136-145)
[2021-01-23 06:40] VITALS: BP 164/74; PULSE 71; RESP 18; O2SAT 99
== END 2021-01-23 06:41 | disposition home or self-care (01) ==
PROVIDERS: Emergency Provider Emergency Medicine; PCP Family Medicine
DX: N40.1 Benign prostatic hyperplasia with lower urinary tract symptoms (principal); R31.0 Gross hematuria; R33.8 Other retention of urine; E78.5 Hyperlipidemia, unspecified; D64.9 Anemia, unspecified; I11.9 Hypertensive heart disease without heart failure; I25.10 Atherosclerotic heart disease of native coronary artery without angina pectoris; I35.0 Nonrheumatic aortic (valve) stenosis; I48.0 Paroxysmal atrial fibrillation; I25.2 Old myocardial infarction; Z79.02 Long term (current) use of antithrombotics/antiplatelets; Z79.82 Long term (current) use of aspirin; Z85.46 Personal history of malignant neoplasm of prostate; Z86.73 Personal history of transient ischemic attack (TIA), and cerebral infarction without residual deficits; Z87.891 Personal history of nicotine dependence; Z90.79 Acquired absence of other genital organ(s); Z95.1 Presence of aortocoronary bypass graft; Z95.2 Presence of prosthetic heart valve
CPT/HCPCS: 51702; 80048; 81001; 85027; 99284; A4216

== ENCOUNTER → 2021-03-25 08:37 | Outpatient (CLI) | payer MEDICARE, BC, SELFPAY | PROVIDERS: PCP Family Medicine; Visit Provider Urology | DX: C61 Malignant neoplasm of prostate (principal) | CPT/HCPCS: 36415; 84153 ==

== ENCOUNTER → 2021-06-05 10:04 | Outpatient (CLI) | payer MEDICARE, BC, SELFPAY ==
[2021-06-05 11:02] LABS: AST(SGOT) 43 U/L (15-37); Alanine Aminotransfer ALT/SGPT 46 U/L (16-61); Albumin, Serum 3.5 g/dL (3.2-5.0); Alkaline Phosphatase 88 U/L (45-117); Bilirubin, Direct 0.18 mg/dL (0.00-0.30); Cholesterol 148 mg/dL (200); Globulin 4.8 g/dL (2.2-4.2); High Density Lipoprotein 53 mg/dL; Protein, Total 8.3 g/dL (6.4-8.2); Triglycerides 78 mg/dL; Very Low Density Lipoprotein 16 mg/dL (5-40)
== END ==
PROVIDERS: PCP Family Medicine; Referring Provider Nurse Practitioner Family; Visit Provider Nurse Practitioner Family
DX: E78.00 Pure hypercholesterolemia, unspecified (principal); E78.5 Hyperlipidemia, unspecified
CPT/HCPCS: 36415; 80061; 80076

== ENCOUNTER 2021-07-21 13:47 | Outpatient (CLI) | payer MEDICARE, BC, SELFPAY ==
--- NOTE | 2021-07-21 13:50 | CDU_ITS ---
Reason For Study: hx stroke, mild atherosclerosis plaque BL carotids Rt. Velocities/BP Lt. Velocities/BP Prox CCA 63/13.4 cm/sec. Prox CCA 67.3/14.6 cm/sec. Mid CCA 56.5/13.4 cm/sec. Mid CCA 57.5/15.7 cm/sec. Dist CCA 51.2/13.4 cm/sec. Dist CCA 51.9/11.3 cm/sec. Prox ICA 50.9/14.6 cm/sec. Prox ICA 34.3/9.7 cm/sec. Mid ICA 56.4/19 cm/sec. Mid ICA 57/20.1 cm/sec. Dist ICA 67.3/22.3 cm/sec. Dist ICA 54.1/20.1 cm/sec. Rt. ICA/CCA = 1.19. Lt. ICA/CCA = 0.99. Prox ECA 77.3/5.6 cm/sec. Prox ECA 70.6/9.1 cm/sec. Rt. Vert. 56.4/13.5 cm/sec. Lt. Vert. 38.1/9.7 cm/sec. Right Extracranial There is homogeneous, smooth atherosclerotic plaque noted in the right common carotid artery. There is heterogeneous, irregular atherosclerotic plaque noted in the right internal carotid artery. There is heterogeneous, irregular atherosclerotic plaque noted in the right external carotid artery. Antegrade flow is noted in the right vertebral artery. Left Extracranial There is homogeneous, smooth atherosclerotic plaque noted in the left common carotid artery. There is heterogeneous, irregular atherosclerotic plaque noted in the left internal carotid artery. There is intimal thickening but no significant atherosclerotic plaque noted in the left external carotid artery. Antegrade flow is noted in the left vertebral artery. Procedure This is a Carotid Duplex examination using B-mode, color flow and specral Doppler. Carotid Duplex [id number]. Exam performed in department. VL/Carotid Duplex Ultrasound Interpretation Summary Irregular calcific plaque at the proximal right internal carotid artery with le ss than 50% stenosis Less than 50% stenosis right external carotid artery Irregular calcific plaque at the proximal left internal carotid artery with les s than 50% stenosis Less than 50% stenosis left external carotid artery Patent and antegrade vertebral arteries bilaterally Ordering Physician: Yeni Denson Referring Physician: Memo Richards MD Performed By: Lorie Presley RVT
== END 2021-07-21 23:59 | disposition short-term general hospital (02) ==
LOC: CVS 13:48
PROVIDERS: PCP Family Medicine; Referring Provider Nurse Practitioner Family; Visit Provider Nurse Practitioner Family
DX: Z86.73 Personal history of transient ischemic attack (TIA), and cerebral infarction without residual deficits (principal)
CPT/HCPCS: 93880

== ENCOUNTER 2021-08-04 08:59 | Outpatient (CLI) | payer MEDICARE, BC, SELFPAY ==
[2021-08-04 09:53] LABS: Absolute Lymphocyte Count 0.55 X10^3/uL (0.83-4.51); Absolute Neutrophil Count 10.5 X10^3/uL (2.0-7.7); Basophil# 0.05 X10^3/uL; Basophil% 0.4 % (0-1); Eosinophil# 0.21 X10^3/uL; Eosinophils% 1.7 % (0-5); Hematocrit 43.9 % (40-54); Hemoglobin 13.7 g/dL (13.0-16.5); Lymphocyte # 0.55 X10^3/ul (0.83-4.51); Lymphocyte % 4.5 % (19-41); Mean Corp Hgb Conc 31.2 g/dL (32-36); Mean Corpuscular Hgb 27.7 pg (27.0-32.0); Mean Corpuscular Volume 88.7 fL (80-94); Mean Platelet Vol. 11.4 fl (6.2-12.0); Monocyte# 0.85 X10^3/uL; NRBC Flagged by Analyzer 0 % (0-5); Neutrophil % 85.9 % (47-70); POSITIVE DIFFERENTIAL YES; Platelet Count 258 K/mm3 (150-450); RBC Distribution Width CV 13.2 % (11.6-14.6); RBC Distribution Width SD 43.2 fl (35.1-43.9); Red Blood Count 4.95 M/mm3 (4.6-6.2); White Blood Count 12.2 K/mm3 (4.4-11.0)
[2021-08-04 09:55] LABS: Differential Indicated SCAN CRITERIA MET
[2021-08-04 10:15] LABS: ALB/GLOB Ratio 0.7 RATIO (0.9-2.4); AST(SGOT) 44 U/L (15-37); Alanine Aminotransfer ALT/SGPT 42 U/L (16-61); Albumin, Serum 3.2 g/dL (3.2-5.0); Alkaline Phosphatase 99 U/L (45-117); Anion Gap 3 (5-15); BUN 19 mg/dL (7-18); BUN/Creat Ratio 16.1 RATIO (10-20); Calcium,Total 9.4 mg/dL (8.5-10.1); Chloride 105 mmol/L (98-107); Creatinine, Serum 1.18 mg/dL (0.70-1.30); EST Glomerular Filtration Rate 63 mL/min (>60); Est Glom Filt Rate - Afr Amer 77 mL/min (>60); Globulin 4.7 g/dL (2.2-4.2); Glucose 105 mg/dL (74-106); Potassium 4.2 mmol/L (3.5-5.1); Prealbumin 19.9 mg/dL (20.0-40.0); Protein, Total 7.9 g/dL (6.4-8.2); Sodium Level 137 mmol/L (136-145)
[2021-08-08 16:53] LABS: Carcinoembryonic Antigen 2.7 ng/mL (0.0-4.7)
== END 2021-08-04 23:59 | disposition short-term general hospital (02) ==
LOC: MFPLAB 09:03
PROVIDERS: PCP Family Medicine; Referring Provider Family Medicine; Visit Provider Family Medicine
DX: K63.89 Other specified diseases of intestine (principal); R63.4 Abnormal weight loss
CPT/HCPCS: 36415; 80053; 82378; 84134; 85025

== ENCOUNTER 2021-08-17 15:51 | Outpatient (CLI) | payer MEDICARE, BC, SELFPAY ==
--- NOTE | 2021-08-17 16:20 | CT_ITS ---
STUDY: CT Abdomen And Pelvis W/ Contrast Injection 08/17/2021 8:23 PM REASON FOR EXAM: Male, 81 years old. Abdominal pain call daughter to schedule: [phone]; hx colon mass vs inflam Individualized dose optimization techniques were used for this CT. COMPARISON: Oct 28 2020 3:34pm TECHNIQUE: CT Abdomen And Pelvis W/ Contrast Injection Oral and amp; IV REDICAT and amp; 100mL Isovue-300 FINDINGS: There are atherosclerotic calcifications of visualized coronary arteries. The visualized portions of the heart are within normal limits. Multiple median sternotomy wires are noted consistent for cardiac surgery. Prosthetic heart valve. Chronic left pleural effusion and left pleural thickening or infiltrate. Stable hypodensity in the right lobe of the liver. Normal gallbladder and extrahepatic biliary system. Normal spleen. Normal pancreas. Normal bilateral adrenal glands. There are hypodensities in the right kidney. These are consistent for cysts. No follow up required. 85 mm hypodensity of the superior left kidney. Well-defined cortical lesion of the superior left kidney measuring 5 mm. Acute findings of the left kidney. Normal visualized stomach. Normal small intestine. Persistent wall thickening or mass of the sigmoid colon measuring 46 x 33 mm. The appendix is visualized and appears normal. There are calcifications of the abdominal aorta. This is consistent for atherosclerotic disease. There is no abdominal aortic aneurysm. Normal inferior vena cava. Subcentimeter mesenteric lymph nodes. Normal urinary bladder. There is enlargement of the prostate gland. There is an umbilical hernia containing fat. There are diffuse degenerative changes of the visualized lumbar spine. IMPRESSION: (NOT LISTED IN ORDER OF SIGNIFICANCE) Chronic left pleural effusion and left pleural thickening or infiltrate. Hyperdense left renal lesions. ACR White Paper guidelines (Ann, et al. JACR 2018; 15(2):264-273) recommend MRI or CT without and with intravenous contrast. Persistent wall thickening or mass of the sigmoid colon measuring 46 x 33 mm. Barium enema or colonoscopy can further evaluate. There is enlargement of the prostate gland. Other findings as above. Electronically Signed: James Pro MD at 20:28 EST , CT/Abdomen/Pelvis WITH Contrast
== END 2021-08-17 23:59 | disposition home or self-care (01) ==
LOC: CT 15:52
PROVIDERS: PCP Family Medicine; Referring Provider Family Medicine; Visit Provider Family Medicine
DX: K63.89 Other specified diseases of intestine (principal); R10.9 Unspecified abdominal pain
CPT/HCPCS: 74177; Q9967

== ENCOUNTER → 2021-12-23 | Outpatient (CLI) | payer MEDICARE, BC, SELFPAY ==
[2021-12-23 10:07] LABS: AST(SGOT) 40 U/L (15-37); Alanine Aminotransfer ALT/SGPT 35 U/L (16-61); Albumin, Serum 3.3 g/dL (3.2-5.0); Alkaline Phosphatase 73 U/L (45-117); Bilirubin, Direct 0.16 mg/dL (0.00-0.30); Cholesterol 132 mg/dL (200); Globulin 3.9 g/dL (2.2-4.2); High Density Lipoprotein 50 mg/dL; Protein, Total 7.2 g/dL (6.4-8.2); Triglycerides 74 mg/dL; Very Low Density Lipoprotein 15 mg/dL (5-40)
== END | disposition home or self-care (01) ==
LOC: LAB 08:26
PROVIDERS: PCP Family Medicine; Referring Provider Nurse Practitioner Family; Visit Provider Nurse Practitioner Family
DX: E78.00 Pure hypercholesterolemia, unspecified (principal); E78.5 Hyperlipidemia, unspecified
CPT/HCPCS: 36415; 80061; 80076